=== PATIENT | male | born 1950 | race Caucasian/White ===

== ENCOUNTER 2024-06-11 14:17 | Outpatient (AMB) | payer MEDICARE, SELFPAY ==
--- NOTE | 2024-06-11 14:23 | A.OFFPC_ITS ---
Vital Signs 06/11/24 14:33 Weight 214 lb BP 130/66 Blood Pressure Location Rt brachial Position Sitting Respiration 14 Pulse 64 Pulse Source Pulse Oximeter Temp 98.4 F Temp Source Oral Pulse Oximetry (%) 97 Oxygen Delivery Method Room Air Intake Visit Reasons: kaitlin from [facility] Intake Note: New patient visit Web Site Project Manager Required: No Allergies No Known Allergies Allergy (Verified 06/11/24 14:29) Tobacco use date assessed: 06/11/24 Fall risk assessment: 2 + Falls in past year Last assessed Fall Risk: 06/11/24 Dental Screening Dental Screen Date: 06/11/24 Did you have a dental visit in the last 12 months?: No Did you have a dental problem in the last 6 months where you did not have access to dental care?: No Was dental information given to patient?: Patient has dentist HPI HPI Comments History of Present Illness Details This is a 74-year-old male with a past medical history of atrial fibrillation, aortic stenosis, left renal carcinoma status post nephrectomy in remission, chronic kidney disease, chronic back pain and osteoarthritis, hyperlipidemia, anemia and lower extremity edema presenting for follow up. He transferred from my panel at [facility] primary care. Records transfer pending. Bilateral cataracts-removed this year. Dr. Jarrett. The patient endorses right pelvic pain since December. It is fairly constant. It does not hurt to press on the area. Sometimes it is a 1/10. At most it is a 5/10. It is not getting worse. Once in awhile he will feel a similar pain on the left side. He endorses constipation for years since beyond opioids for pain management. No diarrhea or blood in stools. Denies urinary symptoms. No weight loss. Appetite has been normal. No vomiting. Patient has had 2 colonoscopies, and the last was more than 10 years ago. We have discussed this multiple times, and he did not want to proceed with colonoscopy. He does not see any swelling in the area of pain. Dr. Norton is his pta, and he is followed by the [facility] Coumadin clinic. He has INR checks every [address] Tam is his linux systems analyst. He has a history of left renal carcinoma. Status post nephrectomy. No known recurrence. He has an appointment with his linux systems analyst this week. The patient is followed by Dr. Hunter. He prescribes his pain regimen. ROS: Constitutional: No unexplained weight loss, fever, chills, fatigue or night sweats. Respiratory: No shortness of breath, cough or sputum production. Cardiovascular: No chest pain, chest pressure or chest discomfort. No palpitations. Gastrointestinal: No anorexia, nausea, vomiting or diarrhea. No blood in stool. Genitourinary: No dysuria, hematuria, urinary frequency. Neurologic: No headache, dizziness, syncope Skin: No rash or redness. Physical exam: Constitutional: Alert, in no distress. Neck: Supple, Full range of motion. No lymphadenopathy. Respiratory: Clear to auscultation. Cardiovascular: S1 S2 regular. Systolic murmur. Gastrointestinal: Abdomen soft, non-tender, non-distended. Normal bowel sounds. No palpable masses. No palpable hernia with Valsalva maneuvers. Genitourinary: No costovertebral angle tenderness. Extremities: Warm and well perfused. 1+ bilateral lower extremity edema. Psychiatric: Normal mood and affect [facility] Medical History (Updated 06/11/24 @ 16:46 by MADDISON Davenport) Pelvic pain in male Pure hypercholesterolemia Renal cell carcinoma of left kidney Stiffness of hand joint Sleep paralysis Mild aortic stenosis Lower extremity edema LVH (left ventricular hypertrophy) HTN (hypertension) High cholesterol Hearing decreased Chronic back pain CKD (chronic kidney disease) Afib Arthritis Anemia Surgical History (Updated 06/11/24 @ 16:41 by MADDISON Davenport) Status post laser cataract surgery of both eyes H/O discectomy History of repair of rotator cuff History of nephrectomy Family History (Updated 06/11/24 @ 14:49 by Honey Ferrera CMA) Brother Crohn disease Cancer of colon Multiple sclerosis Scarlet fever Father TIA (transient ischemic attack) Other Brain tumor Heart disease Social History Housing: House Patient Tobacco Use Status: Former Tobacco user Cigarette Packs Per Day: 2 Years Smoked: 40 e-Cigarette/Vaping Use: Never Used Second Hand Smoke Exposure: No service: No Current occupational status: retired Cognitive needs: No Hearing needs: Yes (Hard of hearing) Vision needs: No Questionnaire PHQ-9 Over the last 2 weeks, how often have you been bothered by any of the following problems? 1. Little interest or pleasure in doing things: not at all 2. Feeling down, depressed, or hopeless: not at all 3. Trouble falling or staying asleep, or sleeping too much: not at all 4. Feeling tired or having little energy: not at all 5. Poor appetite or overeating: not at all 6. Feeling bad about yourself - or that you are a failure or have let yourself or your family down: not at all 7. Trouble concentrating on things, such as reading the newspaper or watching television: not at all 8. Moving or speaking so slowly that other people could have noticed. Or the opposite - being so fidgety or restless that you have been moving around a lot more than usual: not at all 9. Thoughts that you would be better off or of hurting yourself in some way: not at all Total score: 0 Depression Screening Interpretation: Negative Depression Screening Done: Yes 76460 - PHQ-9 Billing: Yes Source: Developed by Drs. Matheus Asencio, Tanya Goodman, Duong Naranjo and colleagues, with an educational iesha from [employer]. Thrive Questionnaire Date Thrive assessed: 06/11/24 I am a: Patient What is your living situation today?: I have a steady place to live Within the past 12 months, did the food you bought not last and you didn't have the money to get more?: Never true Within the past 12 months, did you worry whether your food would run out before you got money to buy more?: Never true Do you have trouble paying for medicines?: No Do you have trouble getting transportation to medical appointments?: No Do you have trouble paying your heating and electricity bill?: No Do you have trouble taking care of your child, family member or friend?: No Do you have trouble with day-to-day activities such as bathing, preparing meals, shopping, managing finances, etc.?: No Are you currently unemployed and looking for a job?: No Are you interested in more education?: No Please select the resources that you would like help with: None Currently or been in a relationship where the following occur: No concerns reported THRIVE Score: 0 AUDIT C Alcohol Use Questionnaire (AUDIT-C) 1. How often do you have a drink containing alcohol?: Never (past) 3. How often do you have six or more drinks on one occasion?: Never Total Score: 0 CHRIS-7 AMB Questionnaire CHRIS-7 Date CHRIS - 7 assessed: 06/11/24 Feeling nervous, anxious, or on edge: 2 = More than half the days Not being able to stop or control worryin = More than half the days Worrying too much about different things: 2 = More than half the days Trouble relaxin = Not at all Being so restless that it is hard to sit still: 0 = Not at all Becoming easily annoyed or irritable: 0 = Not at all Feeling afraid as if something awful might happen: 0 = Not at all Total CHRIS-7 score (0-4 normal; 5-9 mild; 10-14 moderate; 15-21 severe): 6 Source: Developed by Drs. Matheus Asencio, Tanya Goodman, Duong Naranjo and colleagues, with an educational iesha from [employer]. CHRIS-7 Assessment Billing CHRIS-7 Assessment Tool: CHRIS-7 Assessment 09372 Physical exam (Primary Care) Vital Signs: Last Vital Signs Temp 98.4 F 06/11/24 14:33 Pulse 64 06/11/24 14:33 Resp 14 06/11/24 14:33 BP 130/66 06/11/24 14:33 Pulse Ox 97 06/11/24 14:33 Oxygen Delivery Method Room Air 06/11/24 14:33 Tobacco/Smoking Status: Tobacco use Status Tobacco use date assessed 06/11/24 06/11/24 14:38 Patient Tobacco Use Status Former Tobacco user 06/11/24 14:38 e-Cigarette/Vaping Use Never Used 06/11/24 14:38 Depression Screening Interpretation: Negative Currently or been in a relationship where the following occur: No concerns reported Assessment and Plan Assessment & Plan (1) Chronic back pain: Code(s): M54.9 - Dorsalgia, unspecified; G89.29 - Other chronic pain Qualifiers: Back pain location: low back pain Back pain laterality: bilateral Sciatica presence: without sciatica Qualified Code(s): M54.50 - Low back pain, unspecified; G89.29 - Other chronic pain Plan: Followed by physiatry. Continue current pain medication regimen. (2) HTN (hypertension): Code(s): I10 - Essential (primary) hypertension Qualifiers: Hypertension type: primary hypertension Qualified Code(s): I10 - Essential (primary) hypertension Plan: Controlled. Continue current medications. (3) Pure hypercholesterolemia: Code(s): E78.00 - Pure hypercholesterolemia, unspecified Plan: Continue statin. (4) CKD (chronic kidney disease): Code(s): N18.9 - Chronic kidney disease, unspecified Qualifiers: Chronic kidney disease stage: unspecified stage Qualified Code(s): N18.9 - Chronic kidney disease, unspecified Plan: He has an upcoming appointment with Nephrology. Check renal function. (5) Renal cell carcinoma of left kidney: Code(s): C64.2 - Malignant neoplasm of left kidney, except renal pelvis (6) Mild aortic stenosis: Code(s): I35.0 - Nonrheumatic aortic (valve) stenosis Plan: Followed by Cardiology. (7) Afib: Code(s): I48.91 - Unspecified atrial fibrillation Qualifiers: Atrial fibrillation type: longstanding persistent Qualified Code(s): I48.11 - Longstanding persistent atrial fibrillation Plan: Followed by cardiology. Anticoagulated on Coumadin. Rate controlled. (8) Pelvic pain in male: Code(s): R10.2 - Pelvic and perineal pain Plan: Check CBC, CMP, urinalysis and culture. Ordered urgent CT abdomen pelvis with IV contrast given history of cancer. Patient elects to have this done at [facility]. Order will be faxed. Patient advised to call the office if he does not hear about scheduling in the next 2 weeks. I have also asked him to call if he has the test done and does not hear about the results in a week. Orders: Orders Complete Blood Count Auto Diff Today R10.2 - Pelvic and perineal pain Urine Culture Today R10.2 - Pelvic and perineal pain, R39.9 - Unspecified symptoms and signs involving the genitourinary system Comprehensive Met. Panel Today R10.2 - Pelvic and perineal pain UA w Microscopic Today R10.2 - Pelvic and perineal pain, R39.9 - Unspecified symptoms and signs involving the genitourinary system CT abdomen pelvis w IV con Today C64.2 - Malignant neoplasm of left kidney, except renal pelvis, R10.2 - Pelvic and perineal pain Coding Level of Care Code Est Pt Level 4 (40153) Complex EM visit Add On G2211 Diagnoses Chronic bilateral low back pain without sciatica M54.50; G89.29 Back pain location: low back pain Back pain laterality: bilateral Sciatica presence: without sciatica Primary hypertension I10 Hypertension type: primary hypertension Pure hypercholesterolemia E78.00 Chronic kidney disease, unspecified CKD stage N18.9 Chronic kidney disease stage: unspecified stage Renal cell carcinoma of left kidney C64.2 Mild aortic stenosis I35.0 Longstanding persistent atrial fibrillation I48.11 Atrial fibrillation type: longstanding persistent Pelvic pain in male R10.2 Additional Codes CHRIS-7 Assessment Billing - CHRIS-7 Assessment Tool: CHRIS-7 Assessment [id number] ([id number])
[2024-06-11 14:33] VITALS: BP 130/66; PULSE 64; RESP 14; TEMP 36.9; O2SAT 97
== END 2024-06-11 15:03 | disposition home or self-care (01) ==
PROVIDERS: Visit Provider Physician Assistant Medical
DX: M54.50 Low back pain, unspecified (principal); G89.29 Other chronic pain; I12.9 Hypertensive chronic kidney disease with stage 1 through stage 4 chronic kidney disease, or unspecified chronic kidney disease; E78.00 Pure hypercholesterolemia, unspecified; N18.9 Chronic kidney disease, unspecified; C64.2 Malignant neoplasm of left kidney, except renal pelvis; I35.0 Nonrheumatic aortic (valve) stenosis; I48.11 Longstanding persistent atrial fibrillation; R10.2 Pelvic and perineal pain

== ENCOUNTER → 2024-06-11 14:17 | Outpatient (BNVA) | payer MEDICARE, SELFPAY | PROVIDERS: Visit Provider Physician Assistant Medical | DX: M54.50 Low back pain, unspecified (principal); G89.29 Other chronic pain; I12.9 Hypertensive chronic kidney disease with stage 1 through stage 4 chronic kidney disease, or unspecified chronic kidney disease; N18.9 Chronic kidney disease, unspecified; E78.00 Pure hypercholesterolemia, unspecified; C64.2 Malignant neoplasm of left kidney, except renal pelvis; I48.11 Longstanding persistent atrial fibrillation; R10.2 Pelvic and perineal pain; I35.0 Nonrheumatic aortic (valve) stenosis | CPT/HCPCS: 96127; 99212 ==

== ENCOUNTER 2024-06-12 10:15 | Outpatient (REF) | payer MEDICARE, SELFPAY ==
[2024-06-12 14:21] LABS: MANUAL DIFF FLAG NO
[2024-06-12 14:36] LABS: Basophils Percent Auto 0.7 % (0-2); Eosinophils Absolute Auto 0.1 X10*3/uL (0.0-0.4); Eosinophils Percent Auto 2.1 % (0-4); Hematocrit 39.7 % (42.0-52.0); Hemoglobin 13.2 g/dl (14.0-18.0); Imm Gran Abs Auto 0.02 X10*3/uL (0.00-0.03); Imm Gran Pct Auto 0.4 % (0.0-0.4); Lymphocytes Absolute Auto 1.1 X10*3/uL (1.2-4.9); Lymphocytes Percent Auto 20.3 % (20-40); Mean Corpuscular HGB Conc 33.2 g/dl (31.0-36.0); Mean Corpuscular Hemoglobin 30.1 pg (27.0-33.0); Mean Corpuscular Volume 90.6 fL (80.0-98.0); Mean Platelet Volume 12.6 fL (9.4-12.4); Monocytes Absolute Auto 0.5 X10*3/uL (0.1-1.2); Neutrophils Absolute Auto 3.9 x10*3/uL (2.0-8.3); Neutrophils Percent Auto 68.5 % (45-73); Platelet Count 158 X10*3/uL (160-400); Red Blood Count 4.38 X10*6/uL (4.60-5.80); Red Cell Distribution Width 13.4 % (11.0-16.0); White Blood Count 5.6 X10*3/uL (4.8-10.8)
[2024-06-12 14:39] LABS: Alanine Aminotransferase 11 U/L (0-40); Alkaline Phosphatase 59 U/L (39-117); Anion Gap 9 (12-20); Aspartate Amino Transferase 15 U/L (5-37); Bilirubin Total 0.7 mg/dL (0.0-1.0); Blood Urea Nitrogen 17 mg/dL (9-16); Calcium 10.3 mg/dL (8.4-10.2); Carbon Dioxide 30 mmol/L (22-29); Chloride 106 mmol/L (96-108); Estimated Glomerular Filt Rate 44; Glucose Random 101 mg/dL (60-115); Potassium 4.3 mmol/L (3.3-5.1); Sodium 141 mmol/L (135-145); Total Protein 7.2 g/dL (6.5-8.0)
[2024-06-12 15:07] LABS: Appearance Urine Clear; Color Urine Yellow; Glucose Urine UA Negative (Negative); Leukocyte Esterase Urine Negative (Negative); Nitrite Urine Negative (Negative); PH 6.5 (5.0-9.0); Specific Gravity - Urine 1.015 (1.005-1.025); Urine Blood Negative (Negative); Urine Ketones Negative (Negative); Urine Protein Negative (Neg-Trace)
[2024-06-12 15:16] LABS: Bacteria Urine None Seen (None Seen); Hyaline Casts Urine 0-2 /LPF (0-2); RBC Urine 0-2 /HPF (0-2); Squamous Epithelial Cell Urine 0-2 /HPF (0-2); WBC Urine 0-5 /HPF (0-5)
== END 2024-06-12 10:16 | disposition home or self-care (01) ==
LOC: HO.WFDLDS 10:15
PROVIDERS: Visit Provider Physician Assistant Medical
DX: R39.9 Unspecified symptoms and signs involving the genitourinary system (principal); R10.2 Pelvic and perineal pain
CPT/HCPCS: 36415; 80053; 81001; 85025; 87086

== ENCOUNTER 2024-12-20 11:32 | Outpatient (AMB) | payer MEDICARE, OTHER, SELFPAY ==
--- NOTE | 2024-12-20 11:35 | A.OFFPC_ITS ---
Vital Signs 12/20/24 11:41 Height 6 ft 2 in Weight 217 lb 8 oz BMI 27.9 BP 120/68 Blood Pressure Location Rt brachial Position Sitting Respiration 14 Pulse 65 Pulse Source Pulse Oximeter Pulse Oximetry (%) 97 Oxygen Delivery Method Room Air Intake Visit Reasons: follow up Intake Note: Duong presents in the offiice today for follow up. Professor Of Political Science Required: No Allergies No Known Allergies Allergy (Verified 12/20/24 11:36) Tobacco use date assessed: 12/20/24 Fall risk assessment: 2 + Falls in past year Last assessed Fall Risk: 12/20/24 Dental Screening Dental Screen Date: 12/20/24 Did you have a dental visit in the last 12 months?: No Did you have a dental problem in the last 6 months where you did not have access to dental care?: No Was dental information given to patient?: No HPI HPI Comments History of Present Illness Details This is a 74-year-old male with a past medical history of atrial fibrillation, aortic stenosis, left renal carcinoma status post nephrectomy in remission, chronic kidney disease, chronic back pain and osteoarthritis, hyperlipidemia, anemia and lower extremity edema presenting for follow up. Bilateral cataracts-[place] [address] Norton is his hairspring studder, and he is followed by the [facility] Coumadin clinic. He has INR checks every [address] Tam is his automotive starter repairer. He has a history of left renal carcinoma. Status post nephrectomy. No known recurrence. He saw him last week for follow up, and patient says everything was fine The patient is followed by Dr. Hunter. He prescribes his pain regimen. Patient reports he developed balanitis which is nearly resolved after he treated with [id number] azole antifungal cream. ROS: Constitutional: No unexplained weight loss, fever, chills, fatigue or night sweats. Respiratory: No shortness of breath, cough or sputum production. Cardiovascular: No chest pain, chest pressure or chest discomfort. No palpita tions. Stable lower extremity edema. Gastrointestinal: No anorexia, nausea, vomiting or diarrhea. No blood in stool. Genitourinary: No dysuria, hematuria, urinary frequency. Neurologic: No headache, dizziness, syncope Skin: No rash or redness. Physical exam: Constitutional: Alert, in no distress. Neck: Supple, Full range of motion. No lymphadenopathy. Respiratory: Clear to auscultation. Cardiovascular: S1 S2 regular. Systolic murmur. Genitourinary: No costovertebral angle tenderness. Extremities: Warm and well perfused. 1+ bilateral lower extremity edema. Psychiatric: Normal mood and affect [facility] Medical History (Updated 08/02/24 @ 17:22 by MADDISON Davenport) Intrahepatic bile duct dilation Infrarenal abdominal aortic aneurysm (AAA) without rupture Pelvic pain in male Pure hypercholesterolemia Renal cell carcinoma of left kidney Stiffness of hand joint Sleep paralysis Mild aortic stenosis Lower extremity edema LVH (left ventricular hypertrophy) HTN (hypertension) High cholesterol Hearing decreased Chronic back pain CKD (chronic kidney disease) Afib Arthritis Anemia Surgical History (Updated 06/11/24 @ 16:41 by MADDISON Davenport) Status post laser cataract surgery of both eyes H/O discectomy History of repair of rotator cuff History of nephrectomy Family History (Updated 06/11/24 @ 14:49 by Honey Ferrera CMA) Brother Crohn disease Cancer of colon Multiple sclerosis Scarlet fever Father TIA (transient ischemic attack) Other Brain tumor Heart disease Social History (Updated 12/20/24 @ 11:40 by Miriam Davidson MA) Housing: House Alcohol intake: never Patient Tobacco Use Status: Former Tobacco user Cigarette Packs Per Day: 2 Years Smoked: 40 e-Cigarette/Vaping Use: Never Used Second Hand Smoke Exposure: No service: No Current occupational status: retired Current occupational exposures/hazards: No Cognitive needs: No Hearing needs: Yes (Hard of hearing) Vision needs: No Questionnaire PHQ-9 Over the last 2 weeks, how often have you been bothered by any of the following problems? 1. Little interest or pleasure in doing things: not at all 2. Feeling down, depressed, or hopeless: not at all 3. Trouble falling or staying asleep, or sleeping too much: not at all 4. Feeling tired or having little energy: not at all 5. Poor appetite or overeating: not at all 6. Feeling bad about yourself - or that you are a failure or have let yourself or your family down: not at all 7. Trouble concentrating on things, such as reading the newspaper or watching television: not at all 8. Moving or speaking so slowly that other people could have noticed. Or the opposite - being so fidgety or restless that you have been moving around a lot more than usual: not at all 9. Thoughts that you would be better off or of hurting yourself in some way: not at all Total score: 0 Depression Screening Interpretation: Negative Depression Screening Done: Yes 00206 - PHQ-9 Billing: Patient declined-do not bill Source: Developed by Drs. Matheus Asencio, Tanya Goodman, Duong Naranjo and colleagues, with an educational iesha from [employer]. Thrive Questionnaire Date Thrive assessed: 12/20/24 I am a: Patient What is your living situation today?: I choose not to answer this question Within the past 12 months, did the food you bought not last and you didn't have the money to get more?: I choose not to answer this question Within the past 12 months, did you worry whether your food would run out before you got money to buy more?: I choose not to answer this question Do you have trouble paying for medicines?: I choose not to answer this question Do you have trouble getting transportation to medical appointments?: I choose not to answer this question Do you have trouble paying your heating and electricity bill?: I choose not to answer this question Do you have trouble taking care of your child, family member or friend?: I choose not to answer this question Do you have trouble with day-to-day activities such as bathing, preparing meals, shopping, managing finances, etc.?: I choose not to answer this question Are you currently unemployed and looking for a job?: I choose not to answer this question Are you interested in more education?: I choose not to answer this question Please select the resources that you would like help with: None Currently or been in a relationship where the following occur: I choose not to answer THRIVE Score: 0 AUDIT C Alcohol Use Questionnaire (AUDIT-C) 1. How often do you have a drink containing alcohol?: Never Total Score: 0 CHRIS-7 AMB Questionnaire CHRIS-7 Date CHRIS - 7 assessed: 12/20/24 Feeling nervous, anxious, or on edge: 0 = Not at all Not being able to stop or control worryin = Not at all Worrying too much about different things: 0 = Not at all Trouble relaxin = Not at all Being so restless that it is hard to sit still: 0 = Not at all Becoming easily annoyed or irritable: 0 = Not at all Feeling afraid as if something awful might happen: 0 = Not at all Total CHRIS-7 score (0-4 normal; 5-9 mild; 10-14 moderate; 15-21 severe): 0 Source: Developed by Drs. Matheus Asencio, Tanya Goodman, Duong Naranjo and colleagues, with an educational iesha from [employer]. CHRIS-7 Assessment Billing CHRIS-7 Assessment Tool: CHRIS-7 Assessment 75625 Physical exam (Primary Care) Vital Signs: Last Vital Signs Pulse 65 12/20/24 11:41 Resp 14 12/20/24 11:41 BP 120/68 12/20/24 11:41 Pulse Ox 97 12/20/24 11:41 Oxygen Delivery Method Room Air 12/20/24 11:41 BMI result Body Mass Index 27.9 Tobacco/Smoking Status: Tobacco use Status Tobacco use date assessed 12/20/24 12/20/24 11:44 Patient Tobacco Use Status Former Tobacco user 12/20/24 11:44 e-Cigarette/Vaping Use Never Used 12/20/24 11:44 PHQ-9: PHQ-9 Score PHQ-9: Total score 0 12/20/24 11:57 Depression Screening Interpretation: Negative Thrive Assessment: Date of Thrive Assessment Date Thrive assessed 12/20/24 12/20/24 11:44 Currently or been in a relationship where the following occur: I choose not to answer Coding Level of Care Code Est Pt Level 4 (11449) Complex EM visit Add On G2211 Diagnoses Primary hypertension I10 Hypertension type: primary hypertension Renal cell carcinoma of left kidney C64.2 Pure hypercholesterolemia E78.00 Chronic kidney disease, unspecified CKD stage N18.9 Chronic kidney disease stage: unspecified stage Longstanding persistent atrial fibrillation I48.11 Atrial fibrillation type: longstanding persistent Chronic bilateral low back pain without sciatica M54.50; G89.29 Back pain location: low back pain Back pain laterality: bilateral Sciatica presence: without sciatica Mild aortic stenosis I35.0 Lower extremity edema R60.0 Additional Codes CHRIS-7 Assessment Billing - CHRIS-7 Assessment Tool: CHRIS-7 Assessment [id number] ([id number]) Assessment & Plan Assessment & Plan (1) HTN (hypertension): Code(s): I10 - Essential (primary) hypertension Category: Medical Qualifiers: Hypertension type: primary hypertension Qualified Code(s): I10 - Essential (primary) hypertension (2) Renal cell carcinoma of left kidney: Code(s): C64.2 - Malignant neoplasm of left kidney, except renal pelvis Category: Medical (3) Pure hypercholesterolemia: Code(s): E78.00 - Pure hypercholesterolemia, unspecified Category: Medical (4) CKD (chronic kidney disease): Code(s): N18.9 - Chronic kidney disease, unspecified Category: Medical Qualifiers: Chronic kidney disease stage: unspecified stage Qualified Code(s): N18.9 - Chronic kidney disease, unspecified (5) Afib: Code(s): I48.91 - Unspecified atrial fibrillation Category: Medical Qualifiers: Atrial fibrillation type: longstanding persistent Qualified Code(s): I48.11 - Longstanding persistent atrial fibrillation (6) Chronic back pain: Code(s): M54.9 - Dorsalgia, unspecified; G89.29 - Other chronic pain Category: Medical Qualifiers: Back pain location: low back pain Back pain laterality: bilateral Sciatica presence: without sciatica Qualified Code(s): M54.50 - Low back pain, unspecified; G89.29 - Other chronic pain (7) Mild aortic stenosis: Code(s): I35.0 - Nonrheumatic aortic (valve) stenosis Category: Medical (8) Lower extremity edema: Code(s): R60.0 - Localized edema Category: Medical Plan The patient's chronic health problems are stable. He continues all of his medications. He is compliant with INR checks. He will have fasting labs done at [facility]. We will request notes from [facility] as he was referred back in the fall for some incidental findings on his CAT scan. He is up-to-date with immunizations. He will follow up with me in 6 months. Orders: Orders Vitamin B12 Today E78.00 - Pure hypercholesterolemia, unspecified, I10 - Essential (primary) hypertension, N18.9 - Chronic kidney disease, unspecified, Z91.89 - Other specified personal risk factors, not elsewhere classified Complete Blood Count Auto Diff Today E78.00 - Pure hypercholesterolemia, unspecified, I10 - Essential (primary) hypertension, N18.9 - Chronic kidney disease, unspecified IRON PROFILE Today E78.00 - Pure hypercholesterolemia, unspecified, I10 - Essential (primary) hypertension, N18.9 - Chronic kidney disease, unspecified Prostate Specific Antigen Today E78.00 - Pure hypercholesterolemia, unspecified, I10 - Essential (primary) hypertension, N18.9 - Chronic kidney disease, unspecified, Z12.5 - Encounter for screening for malignant neoplasm of prostate Basic Metabolic Panel Today E78.00 - Pure hypercholesterolemia, unspecified, I1 0 - Essential (primary) hypertension, N18.9 - Chronic kidney disease, unspecified Lipid Panel Today E78.00 - Pure hypercholesterolemia, unspecified, E78.5 - Hyperlipidemia, unspecified, I10 - Essential (primary) hypertension, N18.9 - Chronic kidney disease, unspecified
[2024-12-20 11:41] VITALS: BP 120/68; PULSE 65; RESP 14; O2SAT 97; BMI 27.9
--- OUTSIDE RECORDS SUMMARY | 2024-12-20 14:03 | XMS_ITS | Clinical Summary ---
Author Organization [facility] ity Address [address] [place] [address] Care Team Providers Care Rate Engineer Name Role Phone Viviana Adames Primary Care Provider [phone] Medications digoxin (LANOXIN) 125 mcg (0.125 mg) tabletIndications :Essential (primary) hypertension,Perm anent atrial fibrillation (CMS/HCC V24, CMS/HCC V28) TAKE 1/2 TABLET BY MOUTH DAILY 45 tablet 10/02/2024 Active Surgical History Surgery Date Site/Laterality Comments OTHER SURGICAL HISTORY PROCEDURE: LA UNLISTED PROCEDURE SPINE; COMMENT: L5-S1 DISC REPAIR ROTATOR CUFF REPAIR 1998 PROCEDURE: HISTORICAL ROTATOR CUFF REPAIR; COMMENT: RIGHT OTHER SURGICAL HISTORY 2002 PROCEDURE: LA CYSTO W/SIMPLE REMOVAL STONE & STENT; COMMENT: RrEMOVE KIDNEY STONE LEFT COLONOSCOPY 1991 neg PROCEDURE: HISTORICAL COLONOSCOPY; COMMENT: both normal except mild diverticulosis OTHER SURGICAL HISTORY 03/15 PROCEDURE: LA ESOPHAGOSCOPY FLEXIBLE TRANSORAL DIAGNOSTIC; COMMENT: gerd with peptic stricture Medical History Medical History Date Comments Calculus of kidney DX:Calculus o f kidney Depressive disorder, not els ewhere classified DX:Depressive disorder, not elsewhere classified Essential hypertension, benign 07/07/2006 D X:Essential hypertension, benign Pure hypercholesterolemia 07/07/2006 DX:Pur e hypercholesterolemia Lumbago 07/07/2006 DX:Lumbago; COMM ENT: SURERY FOR L5 S1 Congenital tracheoesophageal fistula, 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 Whole body scan mild arthritic changes in right AC joint . CAT scan of theneck slight submandibular adenopathy otherwise normal.. Diverticulosis of colon (wit hout mention of hemorrhage) 11/02/2006 DX:Diverticulosis of colon ( without mention of hemorrhage) Atrial fibrillation (CMS/HCC V24, CMS/HCC V28) DX:Atrial fibrillation (HCC) Lipoma of arm 08/13/2013 DX:Lipoma of arm Abnormal renal function 07/04/2015 DX:Abnor mal renal function Hydronephrosis, left 07/23/2015 DX:Hydronep hrosis, left Mass of ureter 08/04/2015 DX:Mass of urete r Anticoagulated on Coumadin 08/28/2015 DX:An ticoagulated on Coumadin Chronic kidney disease, stag e 3 (CMS/HCC V24, CMS/HCC V28) 03/26/2016 DX:Chronic kidney disease, stage 3 (HCC) Family History Medical History Relation Name Comments Hypertension Father Stroke Father TIA Heart attack Maternal Grandfather Other cancer Maternal Grandmother BRAIN Other: HEPATITIS Mother Heart attack Paternal Grandfather Lung cancer Paternal Grandmother Relation Name Status Comments Brother 1 Alive healthy Brother 2 Alive MS Daughter 1 Alive healthy Daughter 2 Alive healthy Father CHF, TIA, recta l tumor benign Maternal Grandfather [place] Maternal Grandmother [place] Mother Alive hepatitis, vincent racts Paternal Grandfather [place] Paternal Grandmother Brain t umor Sister Alive healthy Social History Tobacco Use Types Packs/Day Years Used Date Smoking Tobacco: Former Cigarettes Q uit: 09/12/2014 Smokeless Tobacco: Never Quit: 08/07/2015 Alcohol Use Standard Drinks/Week Comments Not Currently 0 (1 standard drink = 0.6 oz pur e alcohol) Sex and Gender Information Value Date Recorded Sex Assigned at Not on file Legal Sex Male 11:33 AM EST Gender Identity Not on file Sexual Orientation Not on file Obstetrics History Last Filed Vital Signs Vital Sign Reading Time Taken Comments Blood Pressure 132/70 01/27/2023 10:05 AM EDT Si tting L Arm Pulse 67 04/10/2024 11:37 AM EDT Temperature - - Respiratory Rate - - Oxygen Saturation - - Inhaled Oxygen Concentration - - Weight 96.6 kg (213 lb) 04/10/2024 11:37 AM EDT Height 188 cm (6' 2 ) 04/10/2024 11:37 AM EDT Body Mass Index 27.35 04/10/2024 11:37 AM EDT Plan of Treatment Upcoming Encounters Date Type Department Care Team (Late st Contact Info) Description 05/15/2025 9:10 AM EDT Office Visit [facility] [address] [place] [address] Erendira Amos NP [address] [place] [address] [address] [place] [address] Health Maintenance Due Date Last Done Comments Zoster Vaccines (2 of 2) 08/23/2020 06/28/2020 DTaP,Tdap,and Td Vaccines (3 - Td or Tdap) 09/27/2021 09/27/2011, 09/26/2003 Colorectal Cancer Screening: Stool Based Tests (FOBT/FIT) 08/21/2022 Depression Screening 08/21/2022 Falls Risk Assessment 08/21/2022 Hepatitis C Screening 08/21/2022 Lung Cancer Screening (Low Dose CT) 08/21/2022 Medicare Annual Wellness Visit 08/21/2022 Social Influencers of Health Screening 08/21/2022 Hypertension/CHF/CAD Annual BMP Blood Test 08/22/2022 Cholesterol Screening (Lipid Panel) 01/06/2023 01/06/2018 RSV Immunization Adult Patients (1 - 1-dose 75+ series) 2023 COVID-19 Vaccine ( - season) 2024 07/09/2021, 12/12/2020, 11/13/2020 Influenza Vaccine (Season Ended) 2025 06/15/2023, 2022, 06/16/2021, Additional history exists Pneumococcal Vaccine: 50+ Years Completed 03/08/2018, 01/13/2017 HIB Vaccines Aged Out No longer eligi ble based on patient's age to complete this topic HPV Vaccines Aged Out No longer eligi ble based on patient's age to complete this topic Hepatitis A Vaccines Aged Out No long er eligible based on patient's age to complete this topic Hepatitis B Vaccines Aged Out No long er eligible based on patient's age to complete this topic IPV Vaccines Aged Out No longer eligi ble based on patient's age to complete this topic MMR Vaccines Aged Out No longer eligi ble based on patient's age to complete this topic Meningococcal ACWY Vaccine Aged Out N o longer eligible based on patient's age to complete this topic Meningococcal B Vaccine Aged Out No l onger eligible based on patient's age to complete this topic RSV Immunization Patients Under 20 months Aged Out No longer eligible based on patient's age to complete this topic Varicella Vaccines Aged Out No longer eligible based on patient's age to complete this topic Procedures Procedure Name Priority Date/Time Associated Diagnosis Comments DIGOXIN LEVEL Routine 10/11/2024 8:37 AM EST Permanent atrial fibrillation (CMS/HCC V24, CMS/HCC V28) from Last 3 Months Results * Digoxin level (10/11/2024 8:37 AM EST) Digoxin 0.5 0.5 - 0.9 ng/mL [facility] Comment: Concentrations above 2.0 ng/mL are generally considered toxic. Some overlap of toxic and non-toxic values have been reported. ?Detection Limit = 0.4 ng/mL Therapeutic range is derived from 2013 ACCF/AHA Guidelines for the Management of Heart Failure. Blood Venous blood specimen / Unknown 10/11/2024 8:37 AM EST 10/11/2024 Narrative [facility] - 10/12/2024 8:09 AM EST Performed at: ??01 - [facility] [address] ??[id number] Software Configuration Analyst: Selene Bustamante MD, Phone: ??[phone] us Thad Norton MD LAB BLOOD ORDERABLES Final Res ult [facility] 1 from Last 3 Months Insurance [employer] Member Subscriber Plan / Payer ( fective 2021-Present) Name:Duong Ling Relation to Subscriber:Self Name:Duong Ling Payer ID:[id number] Group ID:Not on file Type:Not on file Address: [facility] [address] [id number] Care Teams Rate Engineer Relationship Specialty Start Date End Date Viviana Adames PA [address] [place] [address] PCP - General 04/10/24
== END 2024-12-20 12:09 | disposition home or self-care (01) ==
LOC: HO.HMCFM 11:33
PROVIDERS: PCP Physician Assistant Medical; Visit Provider Physician Assistant Medical
DX: I12.9 Hypertensive chronic kidney disease with stage 1 through stage 4 chronic kidney disease, or unspecified chronic kidney disease (principal); C64.2 Malignant neoplasm of left kidney, except renal pelvis; N18.9 Chronic kidney disease, unspecified; I48.11 Longstanding persistent atrial fibrillation; E78.00 Pure hypercholesterolemia, unspecified; M54.50 Low back pain, unspecified; G89.29 Other chronic pain; I35.0 Nonrheumatic aortic (valve) stenosis; R60.0 Localized edema

== ENCOUNTER → 2024-12-20 11:32 | Outpatient (BNVA) | payer MEDICARE, OTHER, SELFPAY | PROVIDERS: PCP Physician Assistant Medical; Visit Provider Physician Assistant Medical | DX: I12.9 Hypertensive chronic kidney disease with stage 1 through stage 4 chronic kidney disease, or unspecified chronic kidney disease (principal); N18.9 Chronic kidney disease, unspecified; C64.2 Malignant neoplasm of left kidney, except renal pelvis; E78.00 Pure hypercholesterolemia, unspecified; I48.11 Longstanding persistent atrial fibrillation; M54.50 Low back pain, unspecified; G89.29 Other chronic pain; I35.0 Nonrheumatic aortic (valve) stenosis; R60.0 Localized edema | CPT/HCPCS: 96127; 99212 ==

== ENCOUNTER 2025-05-27 13:37 | Outpatient (AMB) | payer MEDICARE, OTHER, SELFPAY ==
--- OUTSIDE RECORDS SUMMARY | 2025-05-23 08:30 | XMS_ITS | Encounter Summary ---
Author Organization [facility] Address [address] [place] [address] Care Team Providers Care Chemical Dependency Professional Name Role Phone Viviana Adames Primary Care Provider [phone] Reason for Visit * Cardiac Stress Testing (Routine) - Authorized Specialty Diagnoses / Procedures Referred By Contac t Referred To Contact Cardiology Diagnoses Atrial fibrillation, unspecified type (CMS/HCC V24, CMS/HCC V28) Shortness of breath Procedures Nuclear stress test with myocardial perfusion RI MYOCARDIAL PERFUSION IMAGING TOMOGRAPHIC MULTI STUDIES AT REST OR STRESS RI MYOCARDIAL PERFUSION IMAGING TOMOGRAPHIC SINGLE STUDY AT REST OR STRESS RI CARDIOVASCULAR STRESS TEST GLOBAL RI CV TMST/BIKE MAX/SUBMAX CONTINUOUS ECG MON/PHARM STRESS SUPVSR ONLY RI CV STRESS TEST/BIKE CONT ECG MON/PHARM STRESS INTERP & REPORT ONLY RI TEST STRESS CARDIOVASCULAR TRACING ONLY Erendira Amos NP [address] [place] [address] Dr [address] [place] [address] [place] [address] Phone: tel: fax: [facility] Referral ID Status Reason Start Date Expiration Date V isits Requested Visits Authorized [id number] Authorized 05/15/2025 05/15/2026 3 3 Encounter Details Date Type Department Care Team (Latest Contact Info) Description 05/23/2025 8:30 AM EDT Ancillary Procedure [facility] - [address] [place] [phone] Atrial fibrillation, unspecified type (CMS/HCC V24, CMS/HCC V28); Shortness of breath Social History Tobacco Use Types Packs/Day Years [...] on file Sexual Orientation Not on file documented as of this encounter Last Filed Vital Signs Vital Sign Reading Time Taken Comments Blood Pressure 121/70 05/23/2025 8:48 AM EDT Pulse - - Temperature - - Respiratory Rate - - Oxygen Saturation - - Inhaled Oxygen Concentration - - Weight 100 kg (221 lb) 05/23/2025 8:48 AM EDT Height 188 cm (6' 2 ) 05/23/2025 8:48 AM EDT Body Mass Index 28.37 05/23/2025 8:48 AM EDT documented in this encounter Plan of Treatment Upcoming Encounters Date Type Department Care Team (Late st Contact Info) Description 07/19/2025 8:30 AM EST Ancillary Procedure [facility] - [address] [facility] [address] [place] [address] 08/14/2025 9:00 AM EST Ancillary Procedure [facility] - [address] [facility] [address] [place] [address] 08/15/2025 8:10 AM EST Office Visit [facility] - [facility] [address] [place] [id number] Erendira Amos NP [address] [place] [address] [address] [place] [address] documented as of this encounter Procedures Procedure Name Priority Date/Time Associated Diagnosis Comments NM LEXISCAN STRESS TEST W/ MYOCARDIAL PERFUSION Routine 05/23/2025 11:15 AM EDT Atrial fibrillation, unspecified type (CMS/HCC V24, CMS/HCC V28) Shortness of breath documented in this encounter Results * NM LEXISCAN STRESS TEST W/ MYOCARDIAL PERFUSION (05/23/2025 11:15 AM EDT) Exercise/injec tion duration (min) 0 CV PACS STRESS Exercise/injec tion duration (sec) 38 CV PACS STRESS Peak SBP 125 mmHg CV PACS STRESS Peak DBP 62 mmHg CV PACS STRESS Peak HR 77 bpm CV PACS STRESS Baseline HR 66 bpm CV PACS STRESS Baseline SBP 121 mmHg CV PACS STRESS Baseline DBP 70 mmHg CV PACS STRESS Estimated workload 1.0 METS CV PACS STRESS Percent HR 53 % CV PACS STRESS Rate Pressure Product 9,625.0 mmHg*bpm CV PACS STRESS Target HR 122 bpm CV PACS STRESS TID 1.06 CV PACS STRESS Nuc Stress EF 75 % CV PACS STRESS Nuc Rest EF 67 % CV PACS STRESS BSA 2.29 m2 CV PACS STRESS Anatomical Region Laterality Modality Nuclear Medicine 05/23/2025 9:29 AM EDT 05/23/2025 10:13 AM EDT Narrative 05/24/2025 3:49 PM EDT Raw Images and CineLoop Images: Impression: 1. Most likely normal stress test with nuclear imaging. 2. The patient had no chest pain during the test. 3. EKG at baseline was atrial fibrillation, no ischemic EKG changes at stress. 4. LV Cavity size appears dilated. 5. No transient ischemic dialatation (TID 1.06) 6, CT scan showed mild calcification of the LAD noted. LCx and RCA does not seem like significantly calcified. 7. Raw perfusion imgaes revelaed hypoperfusion of the basal to mid segments in the resting images which improves predominantly most of the areas except in the inferior wall indicating artifactual in nature. When attenuation correction is applied, this hypoperfusion normalizes predominantly. Hence no ischemia or infarction. 8. Gated SPECT imaging was performed which demonstrated normal LV wall motion and thickening with a calculated LVEF of 67% at rest and 75% at stress. Stress Findings A pharmacological stress test was performed using regadenoson, 0.4 mg IV over 10-15 seconds, followed by radiopharmacological injection 10 seconds post infusion. Total stress time was 0 min and 38 sec. The patient reached the end of the protocol. Blood pressure demonstrated a normal response. Heart rate demonstrated a normal response. The patient reported no symptoms during the stress test. ECG Patient is a 74 year old male with reports of dyspnea; PMH includes a fib, HTN, former smoking. The ECG shows atrial fibrillation. TWI inversion noted at baseline. There were no arrhythmias during stress. There is no significant ST abnormalities during stress in the setting of baseline abnormal ECG. There were no arrhythmias during recovery. Nuclear Study Quality Study technique: MPI, SPECT, multi, rest and stress, 1 day and gated. Overall image quality is good. CT attenuation correction was utilized. No radiopharmaceutical dose was extravasated. The time from injection to rest imaging is 40 mins. The time from injection to stress imaging is 55 mins. Stress Function Comments Stress ejection fraction is 75%. Rest Function Comments Resting ejection fraction was 67%. us Erendira Amos NP CV STRESS PROCEDURES Final R esult documented in this encounter Visit Diagnoses Diagnosis Atrial fibrillation, unspecified type (CMS/HCC V24, CMS/HCC V28) Shortness of breath documented in this encounter Administered Medications Inactive Administered Medications - up to 3 most recent administrations Medication Order MAR Action Action Date Dose Rate Site regadenoson (LEXISCAN) injection 0.4 mg 0.4 mg, intravenous, Once in imaging, Starting on Tue05/23/25 at 1000, For 1 dose Given 05/23/2025 9:49 AM EDT 0.4 mg TC-99M tetrofosmin P radio-isotope injection 30.1 millicurie 30.1 millicurie, intravenous, Once in imaging, Starting on Tue05/23/25 at 1000, For 1 dose Given 05/23/2025 9:50 AM EDT 30.1 millicuries TC-99M tetrofosmin P radio-isotope injection 9 millicurie 9 millicurie, intravenous, Once in imaging, Starting on Tue05/23/25 at 0843, For 1 dose Given 05/23/2025 8:43 AM EDT 9 millicuries documented in this encounter Care Teams Chemical Dependency Professional Relationship Specialty Start Date End Date Viviana Adames PA [address] [place] [id number] PCP - General 04/10/24 documented as of this encounter
--- NOTE | 2025-05-27 14:05 | MHC.OFFVIS ---
Intake Visit Reasons: bilateral leg cellulitis Allergies No Known Allergies Allergy (Verified 12/20/24 11:36) HPI Comments Details: 74-year-old male with a past medical history of atrial fibrillation, aortic stenosis, left renal cell carcinoma status post nephrectomy in remission, CKD, hyperlipidemia, osteoarthritis, anemia and lower extremity edema presents for re-evaluation of lower extremity cellulitis. Patient was seen at his cardiology office recently, and they noted increased redness and warmth of bilateral lower extremities. He was placed on a 10 day course of doxycycline. He completed this 2 days ago. He notes improved appearance in the redness. He says his legs are always a little bit red, and they look the same as they usually do. He notices no pustular discharge, swelling, pain, fevers or chills. Patient also notices tenderness of the right retroareolar area for the past couple of months when pressure is applied like when he is lying on his right side in bed. No palpable lumps. No known family history of breast cancer. No fevers, chills, unexplained weight loss or night sweats. left 8 x8 4 x 2 r 2.5 x. 2.5 1. 1.5 retroareolar breast pain with palpation [facility] Medical History (Updated 05/27/25 @ 14:08 by MADDISON Davenport) Lower extremity ulceration Intrahepatic bile duct dilation Infrarenal abdominal aortic aneurysm (AAA) without rupture Pelvic pain in male Pure hypercholesterolemia Renal cell carcinoma of left kidney Stiffness of hand joint Sleep paralysis Mild aortic stenosis Lower extremity edema LVH (left ventricular hypertrophy) HTN (hypertension) High cholesterol Hearing decreased Chronic back pain CKD (chronic kidney disease) Afib Arthritis Anemia Surgical History (Updated 06/11/24 @ 16:41 by MADDISON Davenport) Status post laser cataract surgery of both eyes H/O discectomy History of repair of rotator cuff History of nephrectomy Family History (Updated 06/11/24 @ 14:49 by Honey Ferrera CMA) Brother Crohn disease Cancer of colon Multiple sclerosis Scarlet fever Father TIA (transient ischemic attack) Other Brain tumor Heart disease Social History (Updated 12/20/24 @ 11:40 by Miriam Davidson MA) Housing: House Alcohol intake: never Patient Tobacco Use Status: Former Tobacco user Cigarette Packs Per Day: 2 Years Smoked: 40 e-Cigarette/Vaping Use: Never Used Second Hand Smoke Exposure: No service: No Current occupational status: retired Current occupational exposures/hazards: No Cognitive needs: No Hearing needs: Yes (Hard of hearing) Vision needs: No Assessment & Plan Assessment & Plan (1) Lower extremity ulceration: Code(s): L97.909 - Non-pressure chronic ulcer of unspecified part of unspecified lower leg with unspecified severity Category: Medical Orders: Referrals Wound Care Referral L97.909 - Non-pressure chronic ulcer of unspecified part of unspecified lower leg with unspecified severity Medications: New mupirocin calcium 2% 1 appl topical TID 15 grams 1RF Coding Diagnoses Lower extremity ulceration L97.909
[2025-05-27 15:18] VITALS: BP 122/62; PULSE 75; RESP 14; TEMP 36.8; O2SAT 98; BMI 28.2
--- NOTE | 2025-05-27 15:20 | A.OFFPC_ITS ---
Vital Signs 05/27/25 15:18 Height 6 ft 2 in Weight 220 lb BMI 28.2 BP 122/62 Blood Pressure Location Rt brachial Position Sitting Respiration 14 Pulse 75 Pulse Source Pulse Oximeter Temp 98.2 F Temp Source Temporal Artery Scan Pulse Oximetry (%) 98 Oxygen Delivery Method Room Air Intake Visit Reasons: bilateral leg cellulitis Intake Note: Duong presents in the office today for bilateral leg cellulites. Allergies No Known Allergies Allergy (Verified 05/27/25 15:21) Medication List - Last Reconciled 05/27/25 by MADDISON Davenport amlodipine 5 mg PO DAILY digoxin PO furosemide 20 mg PO BID magnesium oxide 400 mg PO DAILY metoprolol tartrate 200 mg PO BID morphine ER 30 mg PO TID multivitamin 1 tab PO DAILY mupirocin calcium 2% 1 appl topical TID oxycodone 15 mg PO TID PRN pravastatin 80 mg PO DAILY warfarin 5 mg (2 x 2.5 mg) PO ONCE 90 days Tobacco use date assessed: 05/27/25 Dental Screening Dental Screen Date: 05/27/25 Did you have a dental visit in the last 12 months?: Yes Did you have a dental problem in the last 6 months where you did not have access to dental care?: No Was dental information given to patient?: Patient has dentist HPI HPI Comments History of Present Illness Details This is a 74-year-old male with a past medical history of atrial fibrillation, chronic lower extremity edema, left renal cell carcinoma status post nephrectomy in remission and aortic stenosis presenting for evaluation of cellulitis. He was seen at his annealer helper's office recently. They noted warmth and increased redness of the bilateral lower extremities. He was placed on a 10 day course of doxycycline which he completed 2 days ago. He denies side effects on the medication. Patient says his legs look back to their baseline now. He has chronic discoloration on the lower legs associated with lower extremity edema. He denies fevers, chills, pain, increased swelling, purulent drainage. Patient says he is unable to put on compression stockings. Patient also endorses right retroareolar breast pain for the past couple of months when pressure is applied to the area. He knows it when he lays on his right side in his arm presses into the area. Denies family history of breast cancer. He does not feel any lumps. No fevers, chills, fatigue, night sweats or unexplained weight loss. ROS: Constitutional: No unexplained weight loss, fever, chills, fatigue or night sweats. Cardiovascular: No chest pain Physical exam: Respiratory: Clear to auscultation. Cardiovascular: S1 S2 regular. No murmurs. Breast: No axillary adenopathy, nipple discharge, rashes or discoloration bilaterally. No palpable masses bilaterally. The right retroareolar area is tender to palpation. Extremities: Warm and well perfused. No clubbing or cyanosis. Bilateral venous stasis dermatitis. There are Stage 1 sores (2 on the left and 2 on the right, largest 8 x 8 cm on the left day). No active drainage or purulent discharge. No calor. [facility] Medical History (Updated 05/27/25 @ 16:50 by MADDISON Davenport) Breast pain, right Venous stasis dermatitis of both lower extremities Lower extremity ulceration Intrahepatic bile duct dilation Infrarenal abdominal aortic aneurysm (AAA) without rupture Pelvic pain in male Pure hypercholesterolemia Renal cell carcinoma of left kidney Stiffness of hand joint Sleep paralysis Mild aortic stenosis Lower extremity edema LVH (left ventricular hypertrophy) HTN (hypertension) High cholesterol Hearing decreased Chronic back pain CKD (chronic kidney disease) Afib Arthritis Anemia Surgical History (Updated 06/11/24 @ 16:41 by MADDISON Davenport) Status post laser cataract surgery of both eyes H/O discectomy History of repair of rotator cuff History of nephrectomy Family History Brother Crohn disease Cancer of colon Multiple sclerosis Scarlet fever Father TIA (transient ischemic attack) Other Brain tumor Heart disease Social History (Updated 05/27/25 @ 15:21 by Miriam Davidson) Housing: House Alcohol intake: never Patient Tobacco Use Status: Former Tobacco user Cigarette Packs Per Day: 2 Years Smoked: 40 e-Cigarette/Vaping Use: Never Used Second Hand Smoke Exposure: No service: No Current occupational status: retired Current occupational exposures/hazards: No Cognitive needs: No Hearing needs: Yes (Hard of hearing) Vision needs: No Questionnaire Thrive Questionnaire Date Thrive assessed: 12/20/24 I am a: Patient What is your living situation today?: I choose not to answer this question Within the past 12 months, did the food you bought not last and you didn't have the money to get more?: I choose not to answer this question Within the past 12 months, did you worry whether your food would run out before you got money to buy more?: I choose not to answer this question Do you have trouble paying for medicines?: I choose not to answer this question Do you have trouble getting transportation to medical appointments?: I choose not to answer this question Do you have trouble paying your heating and electricity bill?: I choose not to answer this question Do you have trouble taking care of your child, family member or friend?: I choose not to answer this question Do you have trouble with day-to-day activities such as bathing, preparing meals, shopping, managing finances, etc.?: I choose not to answer this question Are you currently unemployed and looking for a job?: I choose not to answer this question Are you interested in more education?: I choose not to answer this question Please select the resources that you would like help with: None Currently or been in a relationship where the following occur: I choose not to answer THRIVE Score: 0 AUDIT C Alcohol Use Questionnaire (AUDIT-C) 3. How often do you have six or more drinks on one occasion?: Never Total Score: 0 CHRIS-7 AMB Questionnaire CHRIS-7 Date CHRIS - 7 assessed: 12/20/24 Source: Developed by Drs. Matheus Asencio, Tanya Goodman, Duong Naranjo and colleagues, with an educational iesha from [employer]. Physical exam (Primary Care) Vital Signs: Last Vital Signs Temp 98.2 F 05/27/25 15:18 Pulse 75 05/27/25 15:18 Resp 14 05/27/25 15:18 BP 122/62 05/27/25 15:18 Pulse Ox 98 05/27/25 15:18 Oxygen Delivery Method Room Air 05/27/25 15:18 BMI result Body Mass Index 28.2 Tobacco/Smoking Status: Tobacco use Status Tobacco use date assessed 05/27/25 05/27/25 15:22 Patient Tobacco Use Status Former Tobacco user 05/27/25 15:22 e-Cigarette/Vaping Use Never Used 05/27/25 15:22 Thrive Assessment: Date of Thrive Assessment Date Thrive assessed 04/10/25 09/15/25 15:22 Currently or been in a relationship where the following occur: I choose not to answer Coding Level of Care Code Est Pt Level 4 (69144) Complex EM visit Add On G2211 Diagnoses Ulcer of lower extremity, limited to breakdown of skin, unspecified laterality L97.901 Laterality: unspecified laterality Non-pressure ulcer stage: limited to breakdown of skin Lower extremity edema R60.0 Venous stasis dermatitis of both lower extremities I87.2 Breast pain, right N64.4 Assessment & Plan Assessment & Plan (1) Lower extremity ulceration: Code(s): L97.909 - Non-pressure chronic ulcer of unspecified part of unspecified lower leg with unspecified severity Category: Medical Qualifiers: Laterality: unspecified laterality Non-pressure ulcer stage: limited to breakdown of skin Qualified Code(s): L97.901 - Non-pressure chronic ulcer of unspecified part of unspecified lower leg limited to breakdown of skin (2) Lower extremity edema: Code(s): R60.0 - Localized edema Category: Medical (3) Venous stasis dermatitis of both lower extremities: Code(s): I87.2 - Venous insufficiency (chronic) (peripheral) Category: Medical (4) Breast pain, right: Code(s): N64.4 - Mastodynia Category: Medical Plan Patient will apply topical mupirocin to the stage I areas on the lower extremities. If signs of cellulitis develop again like increased redness, discharge, swelling or warmth he will call the office to restart oral antibiotics. Recommended keeping the extremities elevated. I will refer to Wound Care for further management. We discussed that this can be a chronic waxing and waning issue due to lower extremity edema. Ordered ultrasound and mammogram for evaluation of breast pain on the right side. He has a follow up with me in a week. Orders: Orders US breast RT limited Today N64.4 - Mastodynia MM diagnostic mammo unilat RT Today N64.4 - Mastodynia Referrals Wound Care Referral L97.909 - Non-pressure chronic ulcer of unspecified part of unspecified lower leg with unspecified severity Medications: New mupirocin calcium 2% 1 appl topical TID 15 grams 1RF
--- OUTSIDE RECORDS SUMMARY | 2025-05-27 18:52 | XMS_ITS | Encounter Summary ---
Author Organization [facility] Address [address] [place] [address] Care Team Providers Care Adjuster Piano Action Name Role Phone Rebecca Bosch MD Primary Care Provider Nely Strong MD Primary Care Provide Thad Osorio MD Unavailable [phone] Ivania Bearden DO Primary Care Provider Thad Horvath MD Unavailable [phone] Anurag Tam MD Unavailable Ruel Hunter DO Unavailable [facility]available [facility] Primary Care Provider Viviana Gray PA-C Primary Care Provider Luke junior [facility], [facility]cp Primary Care Provider Viviana Gray PA-C Unavailable Unavailable Viviana Adames PA-C Primary Care Provider Luke junior Encounter Details Date Type Department Care Team Description 05/30/2017 [facility] Medical Records [address] [place] [id number] Abstract, Provider Social History Tobacco Use Types Packs/Day Years Used Date Smoking Tobacco: Former Cigarettes 2 35 Smokeless Tobacco: Former Quit: 08/07/2015 Alcohol Use Standard Drinks/Week Comments Yes 0 (1 standard drink = 0.6 oz pur e alcohol) 2/yr Alcohol Habits Answer Date Recorded How often do you have a drink containing alcohol ? Never 12/08/2021 How many drinks containing a lcohol do you have on a typical day when you are drinking? Not asked How often do you have six or more drinks on one occasion? Never 12/08/2021 Social Isolation Answer Date Recorded In a typical week, how many times do you talk on the phone with family, friends, or neighbors? More than three times a week 12/08/2021 How often do you get togethe r with friends or relatives? More than three times a week 12/08/2021 How often do you attend chur or gnosticist services? Never 12/08/2021 Do you belong to any clubs o r organizations such as yazidi groups, unions, fraternal or athletic groups, or school groups? No 12/08/2021 How often do you attend meet ings of the clubs or organizations you belong to? Never 12/08/2021 Are you now , , , , never or living with a partner? 12/08/2021 Physical Activity Answer Date Recorded On average, how many days pe r week do you engage in moderate to strenuous exercise (like walking fast, running, jogging, dancing, swimming, biking, or other activities that cause a light or heavy sweat)? 7 days 12/08/2021 On average, how many minutes do you engage in exercise at this level? 20 min 12/08/2021 Stress Answer Date Recorded Do you feel stress - tense, restless, nervous, or anxious, or unable to sleep at night because your mind is troubled all the time - these days? Not at all 12/08/2021 Financial Resource Strain Answer Date R ecorded How hard is it for you to pa y for the very basics like food, housing, medical care, and heating? Not hard at all 12/08/2021 Intimate Partner Violence Answer Date R ecorded Within the last year, have y ou been afraid of your partner or ex-partner? No 12/08/2021 Within the last year, have y ou been humiliated or emotionally abused in other ways by your partner or ex-partner? No Within the last year, have y ou been kicked, hit, slapped, or otherwise physically hurt by your partner or ex-partner? No 12/08/2021 Within the last year, have y ou been raped or forced to have any kind of sexual activity by your partner or ex-partner? No 12/08/2021 Food Insecurity Answer Date Recorded Within the past 12 months, y ou worried that your food would run out before you got money to buy more. Never true 12/08/2021 Within the past 12 months, t he food you bought just didn't last and you didn't have money to get more. Never true 12/08/2021 Transportation Needs Answer Date Record ed In the past 12 months, has l ack of transportation kept you from medical appointments or from getting medications? No 11/11 In the past 12 months, has l ack of transportation kept you from meetings, work, or getting things needed for daily living? No 12/08/2021 Housing Stability Answer Date Recorded In the last 12 months, was t here a time when you were not able to pay the mortgage or rent on time? No 12/08/2021 In the last 12 months, how many places have you lived? 2 12/08/2021 In the last 12 months, was t here a time when you did not have a steady place to sleep or slept in a halfway (including now)? No 12/08/2021 Sex Assigned at Date Recorded Not on file documented as of this encounter Plan of Treatment Not on file documented as of this encounter Visit Diagnoses Not on filedocumented in this encounter Care Teams Adjuster Piano Action Relationship Specialty Start Date End Date Rebecca Bosch MD PCP - General Internal Medicine 07/22/15 12/11/20 Nely Betancourt MD PCP - General Internal Medicine 12/12/20 11/18/21 Ivania Bearden, [address] [place] [address] PCP - General Internal Medicine 11/19/21 02/23/22 [facility] Pcp [address] [place] [address] PCP - General Internal Medicine 02/24/22 03/02/22 Viviana Adames PA-C [address] [place] [address] [place] [address] PCP - General Medical Physician Program Developer 03/03/22 04/26/22 [facility] Pcp [address] [place] [address] PCP - General Internal Medicine 04/27/22 04/09/24 Viviana Adames PA-C [address] [place] [id number] PCP - General Medical Physician Program Developer 04/10/24 Thad Norton MD [address] [place] [address] Specialist Cardiovascular Disease 01/23/21 2 Thad Norton MD [address] [facility] [address] [place] [address] Self Propelled Mining Machine Operator Cardiovascular Disease 12/08/21 Anurag Tam MD [address] [place] [address] Specialist Nephrology 12/08/21 Ruel Hunter DO [address] [facility] [address] [place] [address] Specialist Physiatry 12/08/21 Viviana Adames PA-C [address] [place] [address] [address] [place] [address] Specialist Medical Physician Program Developer 01/27/23 04/09/24 documented as of this encounter
--- OUTSIDE RECORDS SUMMARY | 2025-05-27 18:52 | XMS_ITS | Encounter Summary ---
Author Organization [facility] Address [address] [place] [address] Care Team Providers Care Loan Reviewer Name Role Phone Rebecca Bosch MD Primary Care Provider Nely Strong MD Primary Care Provide Thad Osorio MD Unavailable [phone] Ivania Bearden DO Primary Care Provider Thad Horvath MD Unavailable [phone] Anurag Tam MD Unavailable Ruel Hunter DO Unavailable Unavailable [facility], Pcp Primary Care Provider Viviana [place] PA-C Primary Care Provider Luke junior [facility], Pcp Primary Care Provider Viviana [place] PA-C Unavailable Unavailable Viviana Adames PA-C Primary Care Provider Luke junior Encounter Details Date Type Department Care Team Description 05/16/2016 Pt. Non Urgent Medical Question Medicine/Pediatrics - [address] [id number] Rebecca Bosch MD Social History Tobacco Use Types Packs/Day Years [...] week 12/08/2021 How often do you attend [facility] or congregation services? Never 12/08/2021 Do you belong to any clubs o r organizations such as shinto groups, unions, fraternal or athletic groups, or [...] place to sleep or slept in a senior living (including now)? No 12/08/2021 Sex Assigned at Date Recorded Not on file documented as of this encounter Progress Notes * Radha Richter L.P.N. - 05/18/2016 9:48 AM EDTFrom: Duong Ling To: Rebecca Clarke MD Sent: 05/16/2016 10:24 AM EDT Subject: Vaccinations May Duong receive his flu shot (and any other vaccinations that may be appropriate such as pneumoccal etc.) when he comes for his next round of bloodwork on May 21 ? Thank you, Maria Guadalupe Ling documented in this encounter Plan of Treatment Not on file documented as of this encounter Visit Diagnoses Not on filedocumented in this encounter Care Teams Loan Reviewer Relationship Specialty Start Date End Date Rebecca Bosch MD PCP - General Internal Medicine 07/22/15 12/11/20 Nely Betancourt MD PCP - General Internal Medicine 12/12/20 11/18/21 Ivania Bearden DO [address] [place] [address] PCP - General Internal Medicine 11/19/21 02/23/22 [facility] [address] [place] [address] PCP - General Internal Medicine 02/24/22 03/02/22 Viviana Adames PA-C [address] [facility] [facility] [address] [place] [address] PCP - General Medical Physician [employer] 03/03/22 04/26/22 [facility] [address] [place] [address] PCP - General Internal Medicine 04/27/22 04/09/24 Viviana Adames PA-C [address] [facility] [place] [address] PCP - General Medical Physician [employer] 04/10/24 Thad Norton MD [address] [place] [address] [address] [place] [address] Specialist Cardiovascular Disease 01/23/21 2 Thad Norton MD [address] [place] [address] [place] [address] Mortgage Specialist Cardiovascular Disease 12/08/21 Anurag Tam MD [address] [place] [address] [address] [place] [address] Specialist Nephrology 12/08/21 Ruel Hunter DO [address] [facility] [address] [place] [address] Specialist Physiatry 12/08/21 Viviana Adames PA-C [address] [place] [address] [address] [place] [address] Specialist Medical Physician [employer] 01/27/23 04/09/24 documented as of this encounter
--- OUTSIDE RECORDS SUMMARY | 2025-05-27 18:52 | XMS_ITS | Encounter Summary ---
Author Organization [facility] Address [address] [place] [address] Care Team Providers Care Tool Liaison Name Role Phone Rebecca Bosch MD Primary Care Provider Nely Strong MD Primary Care Provide Unavailable Thad Norton MD Unavailable [phone] Ivania Bearden DO Primary Care Provider Thad Horvath MD Unavailable [phone] Anurag Tam MD Unavailable Ruel Hunter DO Unavailable Unavailable [facility], Pcp Primary Care Provider Viviana [place] PA-C Primary Care Provider Luke junior [facility], Pcp Primary Care Provider Viviana [place] PA-C Unavailable Unavailable Viviana Adames PA-C Primary Care Provider Luke junior Encounter Details Date Type Department Care Team Description 07/20/2017 [employer] Report Medical Records [address] [place] [id number] Anurag Tam MD [address] [place] [id number] Social History Tobacco Use Types Packs/Day Years [...] week 12/08/2021 How often do you attend [facility] or caodaism services? Never 12/08/2021 Do you belong to any clubs o r organizations such as temple groups, unions, fraternal or athletic groups, or [...] on filedocumented in this encounter Care Teams Tool Liaison Relationship Specialty Start Date End Date Rebecca Bosch MD PCP - General Internal Medicine 07/22/15 12/11/20 Nely Betancourt MD PCP - General Internal Medicine 12/12/20 11/18/21 Ivania Bearden DO [address] [place] [address] PCP - General Internal Medicine 11/19/21 02/23/22 [facility], Pcp [address] [place] [address] [place] [address] PCP - General Internal Medicine 02/24/22 03/02/22 Viviana Adames PA-C [address] [place] [address] [address] [place] [address] PCP - General Medical Physician Crown [employer] Machine Set Up Mechanic 03/03/22 04/26/22 [facility], Pcp [address] [place] [address] [place] [address] PCP - General Internal Medicine 04/27/22 04/09/24 Viviana Adames PA-C [address] [place] [address] [address] [place] [address] PCP - General Medical Physician Crown [employer] Machine Set Up Mechanic 04/10/24 Thad Norton MD [address] [place] [address] [address] [place] [address] Specialist Cardiovascular Disease 01/23/21 2 Thad Norton MD [address] [place] [address] [address] [place] [address] Hydrometallurgical Engineer Cardiovascular Disease 12/08/21 Anurag Tam MD [address] [place] [address] [address] [place] [address] Specialist Nephrology 12/08/21 Ruel Hunter DO [address] [facility] [address] [place] [address] Specialist Physiatry 12/08/21 Viviana Adames PA-C [address] [place] [address] [address] [place] [address] Specialist Medical Physician [employer] Machine Set Up Mechanic 01/27/23 04/09/24 documented as of this encounter
--- OUTSIDE RECORDS SUMMARY | 2025-05-27 18:52 | XMS_ITS | Encounter Summary ---
Author Organization [facility] Address [address] [place] [address] Care Team Providers Care Credit And Collection Manager Name Role Phone Saúl Peguero MD Primary Care Provider Unavail able Rebecca Bosch MD Primary Care Provider Unavaila Nely Ch MD Primary Care Provide r Unavailable Thad Norton MD Unavailable [phone] Ivania Bearden DO Primary Care Provider Unavaila Thad Mckeon MD Unavailable [phone] Anurag Tam MD Unavailable Ruel Hunter DO Unavailable Unavailable [facility], Pcp Primary Care Provider Viviana Gray PA-C Primary Care Provider Luke junior [facility], Pcp Primary Care Provider Viviana Gray PA-C Unavailable Unavailable Vviiana Adames PA-C Primary Care Provider Luke junior Reason for Visit * Reason Onset Date Comments Appointment-Internal Referral 08/30/2013 Encounter Details Date Type Department Care Team Description 08/30/2013 Telephone Adult Medicine - [address] [id number] Viviana Adames PA-C Appointment-Internal Referral Social History Tobacco Use Types Packs/Day Years Used Date Smoking Tobacco: Every Day Cigarettes 2 35 Smokeless Tobacco: Never Alcohol Use Standard Drinks/Week Comments Yes 0 [...] How often do you attend chur or alevism services? Never 12/08/2021 Do you belong to any clubs o r organizations such as synagogue groups, unions, fraternal or athletic groups, or [...] place to sleep or slept in a [place] facility (including now)? No 12/08/2021 Sex Assigned at Date Recorded Not on file documented as of this encounter Miscellaneous Notes * Telephone Encounter - Mirian Salinas Rn - 09/07/2013 1:54 PM EST Call to pt Phone rang many times no answer or answering machine, * Telephone Encounter - Mirian Salinas Rn - 09/04/2013 12:48 PM EST Call to above #, not sure if message was left, phone call ended during message. Called back phone rang many times on answering machine * Telephone Encounter - Radha Richter L.P.N. - 08/30/2013 2:52 PM EST I spoke with pt pt was sleeping She will have him call when he gets up * Telephone Encounter - Viviana Adames PA-C - 08/30/2013 12:00 PM EST Triage would you please call patient and tell him cardiology is trying to reach him to schedule a visit. He is very overdue for follow up and needs to be seen by cardiology. Agreed to this at our last visit. Thank you * Telephone Encounter - Radha Koch - 08/30/2013 11:41 AM EST This note is to advise Cassie Maierthat our office has made two calls to Duong on 08/14/13 and 08/27/13 to schedule an appointment in cardiology and he did not return our calls or respond to the letter that was sent out either. If you should hear from the patient please let him know that we havetried to reach him. Thank you Radha Koch BSR in cardiology. documented in this encounter Plan of Treatment Not on file documented as of this encounter Visit Diagnoses Not on filedocumented in this encounter Care Teams Credit And Collection Manager Relationship Specialty Start Date End Date Saúl Peguero MD PCP - General 06/14/06 07/21/15 Rebecca Bosch MD PCP - General Internal Medicine 07/22/15 12/11/20 Nely Betancourt MD PCP - General Internal Medicine 12/12/20 11/18/21 Ivania Bearden DO [address] [facility] [address] [place] [address] PCP - General Internal Medicine 11/19/21 02/23/22 [facility], Pcp [address] [place] [address] [address] [place] [address] PCP - General Internal Medicine 02/24/22 03/02/22 Viviana Adames PA-C [address] [place] [address] [place] [address] PCP - General Medical Physician Iv Technician 03/03/22 04/26/22 [facility], Pcp [address] [facility] [address] [place] [address] PCP - General Internal Medicine 04/27/22 04/09/24 Viviana Adames PA-C [address] [place] [address] [address] [place] [address] PCP - General Medical Physician Iv Technician 04/10/24 Thad Norton MD [address] [place] [address] [address] [place] [address] Specialist Cardiovascular Disease 01/23/21 2 Thad Norton MD [address] [place] [address] [address] [place] [address] Rice Dryer Mechanic Cardiovascular Disease 12/08/21 Anurag Tam MD [address] [place] [address] [address] [place] [address] Specialist Nephrology 12/08/21 Ruel Hunter DO [address] [facility] [address] [place] [address] Specialist Physiatry 12/08/21 Viviana Adames PA-C [address] [place] [address] [address] [place] [address] Specialist Medical Physician Iv Technician 01/27/23 04/09/24 documented as of this encounter
--- OUTSIDE RECORDS SUMMARY | 2025-05-27 18:52 | XMS_ITS | Clinical Summary ---
Author Organization [facility] Address [address] [place] [address] Care Team Providers Care X Ray Examiner Of Aircraft Name Role Phone Thad Norton MD Unavailable [phone] Anurag Tam MD Unavailable Ruel Hunter DO Unavailable Unavailable Viviana Adames PA-C Primary Care Provider Luke junior Allergies No known active allergies Medications Medication Sig Dispensed Refills Start Date End Date Status Multiple Vitamins-Iron (MULTI-VITAMIN/IRON OR) Take 1 Tab by mouth daily. 0 Active oxycodone (ROXICODONE) 15 MG immediate release tabletIndications:Radiculi tis, lumbosacral,Chronic midline low back pain without sciatica,Lumbosacral spondylosis without myelopathy,Renal cell cancer, left (HCC) Take 1 tablet by mouth 3 times daily as needed for Pain for up to 28 days. 84 tablet 0 02/24/2021 Active Morphine Sulfate ER 30 MG Tab CRIndications:Radiculitis, lumbosacral,Chronic midline low back pain without sciatica,Lumbosacral spondylosis without myelopathy,Renal cell cancer, left (HCC) Take 30 mg by mouth every 8 hours for 28 days. 84 tablet 0 02/24/2021 Active warfarin (COUMADIN) 2.5 MG tablet TAKE 2 TABLETS BY MOUTH AT THE SAME TIME DAILY*MAY CAUSE HEAVY BLEEDING*DO NOT CHANGE DIET WHILE ON 180 tablet 0 11/25/2021 Active pravastatin (PRAVACHOL) 80 MG tabletIndications:Pure hypercholesterolemia Take 1 Tablet by mouth daily. 90 Tablet 1 12/08/2021 Active amlodipine (NORVASC) 5 MG tablet Take 1 Tablet by mouth daily. 90 Tablet 0 12/08/2021 Active magnesium oxide (MAG-OX) 400 MG tablet TAKE 1 TABLET BY MOUTH EVERY DAY 90 Tablet 0 02/17/2022 Active furosemide (LASIX) 20 MG tablet 1 tablet daily, 2 tablets on Mon, Wed, Fri 0 Active lidocaine (LIDODERM) 5 % Place 1 Patch onto the skin every 24 hours. Apply for no more than 12 hours in any 24 hour period. 0 Active digoxin (LANOXIN) 125 MCG tabletIndications:Essentia l hypertension, benign,Permanent atrial fibrillation (HCC) TAKE 1/2 TABLET BY MOUTH EVERY DAY 135 Tablet 0 01/17/2024 Active metoprolol (LOPRESSOR) 100 MG tablet TAKE 2 TABLETS BY MOUTH TWICE A DAY 360 Tablet 3 04/25/2024 Active Active Problems Problem Noted Date Edema 04/10/2024 Last Assessment & Plan: Patient has chronic lower extremity edema most likely due to venous insufficiency. Patient be given prescription for Velcro wraps. Abdominal aneurysm 01/23/2021 Last Assessment & Plan: Patient with evidence of 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 Patient be sent for an ultrasound given his continued tobacco abuse Chest pain 01/23/2021 Last Assessment & Plan: Patient with chest discomfort with smoking. I have asked him to contact us if he develops exertional discomfort when he is not smoking. Of course encouraged him to quit smoking he thinks the vaping is less of an issue I told him it is more of an issue Mild anemia 10/09/2018 History of kidney cancer 03/26/2016 Chronic kidney disease, stage 3 03/26/20 16 Venous stasis dermatitis of both lower e xtremities 01/06/2016 Chronic venous insufficiency 01/06/2016 Last Assessment & Plan: Patient with chronic lower extremity edema that seems to be fairly well controlled at this time no change in therapy History of tobacco abuse 09/12/2014 Lipoma of arm 08/13/2013 Degenerative arthritis of lumbar spine 1 11/01/2009 Radiculitis, lumbosacral 08/31/2010 Smoking 05/22/2010 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 Depressive disorder, not elsewhere class ified 07/07/2006 Overview: Prior treatment with Prozac. Essential hypertension, benign 6 Overview: Prior treatment with Norvasc, lisinopril and hydrochlorothiazide Last Assessment & Plan: Patient states that he is taking his blood pressure at home and that it is 120 systolic he may have a component of whitecoat syndrome Pure hypercholesterolemia 07/07/2006 Overview: LDL cholesterol 09/16 220. 02/14 LDL cholesterol of 135 Lumbago 07/07/2006 Overview: SURERY FOR L5 S1 - Currently disabled because of back pain. Last MRI 02/14. Postoperative change L5-S1 without recurrent and disc herniation, spinal stenosis or foraminal stenosis. Mild L3 L4 and L4 L5 facet arthropathy with mild secondary foraminal stenosis. Overweight 07/07/2006 Atrial fibrillation Last Assessment & Plan: Patient remains in chronic atrial fibrillation rate controlled and anticoagulated no change in therapy at this time Resolved Problems Problem Noted Date Resolved Date Anticoagulated on Coumadin 08/28/201504/02 Mass of ureter 08/04/2015 04/23/2016 Overview: 08/19/2015-Nicho Cota radical nephroureterectomy Hydronephrosis, left 07/23/2015 01/13/2017 Abnormal renal function 07/04/2015 01/14/20 17 HCM 11/02/2006 09/08/2017 Overview: chest x-ray normal . Whole body scan mild arthritic changes in right AC joint . CAT scan of theneck slight submandibular adenopathy otherwise normal..TSH 0.82 12/14 and PSA 0.2 with normal CBC. normal CMP 02/14 with LDL cholesterol 135 with prior LDL cholesterol. 220 Immunizations Name Administration Dates Next Due COVID-19 (Moderna) 07/09/2021,12/12/2020, 021 COVID-19 (Moderna) PT Reported 12/12/2020,2020 Influenza (> 6 Months) 07/03/2015,2012,09/27/2011,09/03,06/17/2008,06/29/2005 Influenza H1N1 Pandemic Flu Vaccine 09/03/2009 Influenza Vaccine-preservati ve Free-quadrivalent 4 Years 06/28/2020,10/09/2018 Influenza vaccine high dose age 65 and over 06/16/2021,06/28/2020,06/24/2019,07/03,08/13/2013,09/27/2011,09/03/2009 ,06/17/2008,06/29/2005 Pneumoccoccal(Adult) Polysac charide PPSV23 03/08/2018 Pneumococcal Conjugate PCV-13 01/13/2017 Shingrix (Recombinant zoster vaccine) 06/28/2020 TD (STATE SUPPLIED FOR ADULT S AND CHILDREN) 09/26/2003 Tdap 09/27/2011 Family History Medical History Relation Name Comments Hypertension Father Stroke Father TIA [place] Maternal Grandfather Cancer, Other Maternal Grandmother BRAIN HEPATITIS Mother [place] Paternal Grandfather Cancer of the Lung Paternal Grandmother Relation Name Status Comments Brother 1 Alive healthy Brother 2 Alive MS Daughter 1 Alive healthy Daughter 2 Alive healthy Father CHF, TIA, recta l tumor benign Maternal Grandfather UK x po ssible [place] Maternal Grandmother UK Mother Alive hepatitis, vincent racts Paternal Grandfather UK x po ssible [place] Paternal Grandmother Brain t umor Sister Alive healthy Social History Tobacco Use Types Packs/Day Years Used Date Smoking Tobacco: Former Cigarettes 2 35 Q uit: 2014 Smokeless Tobacco: Never Quit: 08/07/2015 Alcohol Use Standard Drinks/Week Comments Not Currently 0 (1 standard drink = 0.6 oz pur e alcohol) Alcohol Habits Answer Date Recorded How often [...] How often do you attend chur or baptist services? Never 12/08/2021 Do you belong to any clubs o r organizations such as scientology groups, unions, fraternal or athletic groups, or [...] place to sleep or slept in a correction (including now)? No 12/08/2021 Sex Assigned at Date Recorded Not on file Last Filed Vital Signs Vital Sign Reading Time Taken Comments Blood Pressure 132/70 01/27/2023 10:05 AM EDT Pulse 67 04/10/2024 11:37 AM EDT Temperature 36.1 C (96.9 F) 12/08/2021 10:58 AM EDT Respiratory Rate 16 06/17/2020 9:18 AM EDT Oxygen Saturation 97% 04/10/2024 11:37 AM EDT Inhaled Oxygen Concentration - - Weight 96.6 kg (213 lb) 04/10/2024 11:37 AM EDT Height 188 cm (6' 2 ) 04/10/2024 11:37 AM EDT Body Mass Index 27.35 04/10/2024 11:37 AM EDT Plan of Treatment Health Maintenance Due Date Last Done Comments COLON CANCER SCREEN WITH STO OL CARD 1998 Lung Cancer Screening (Low D ose CT) 2003 SHINGLES VACCINE (2 of 2) 08/23/2020 06/28/2020 DTAP/TDAP/TD (2 - Td or Tdap) 09/27/2021 09/27/2011, 09/26/2003 DEPRESSION SCREEN 12/08/2022 12/08/2021, 12/26/2014 FALL RISK ASSESSMENT 12/08/2022 12/08/2021, 06/08/2021, 11/30/2019, Additional history exists BMI CHECK/ADVISE 09/12/2024 12/08/2021, 01/2021, 06/08/2021, Additional history exists Covid-19 Vaccine (2022-10 4 season) 2025 03/07/2023, 07/09/2021, 12/12/2020, Additional history exists INFLUENZA (#1) 2025 06/16/2021, 06/12, 06/28/2020, Additional history exists CHOLESTEROL SCREENING 12/10/2026 12/10/2021 , 09/19/2020, 11/30/2019, Additional history exists HEPATITIS C SCREENING Completed 03/26/2016 PNEUMOCOCCAL VACCINE Completed 03/08/2018, 01/14/20 17 Care Teams X Ray Examiner Of Aircraft Relationship Specialty Start Date End Date Viviana Adames PA-C [address] [place] [address] [place] [address] PCP - General Medical Physician Eligibility Worker 04/10/24 Thad Norton MD [address] [place] [address] [address] [place] [address] Supervisor Farm Equipment Maintenance Cardiovascular Disease 12/08/21 Anurag Tam MD [address] [place] [address] [place] [address] Specialist Nephrology 12/08/21 Ruel Hunter DO [address] [facility] [address] [place] [address] Specialist Physiatry 12/08/21
--- OUTSIDE RECORDS SUMMARY | 2025-05-27 18:52 | XMS_ITS | Encounter Summary ---
Author Organization [facility] Address [address] [place] [address] Care Team Providers Care Linux Solaris Administrator Name Role Phone Saúl Peguero MD Primary Care Provider Unavail able Rebecca Bosch MD Primary Care Provider UnavailNely Watson MD Primary Care Provide r Unavailable Thad Norton MD Unavailable [phone] Ivania Bearden DO Primary Care Provider Unavaila Thad Mckeon MD Unavailable [phone] Anurag aTm MD Unavailable Ruel Hunter DO Unavailable Unavailable [facility], Pcp Primary Care Provider Viviana Gray PA-C Primary Care Provider Luke junior [facility], Pcp Primary Care Provider Viviana Gray PA-C Unavailable Unavailable Viviana Adames PA-C Primary Care Provider Luke junior Encounter Details Date Type Department Care Team Description 04/11/2013 Controlled Substance Plan Medical Records [address] [place] [address] Abstract, Provider Social History Tobacco Use Types [...] How often do you attend chur or scientology services? Never 12/08/2021 Do you belong to any clubs o r organizations such as rastafarian groups, unions, fraternal or athletic groups, or [...] place to sleep or slept in a fpc (including now)? No 12/08/2021 Sex Assigned at Date Recorded Not on file documented as of this encounter Plan of Treatment Not on file documented as of this encounter Visit Diagnoses Not on filedocumented in this encounter Care Teams Linux Solaris Administrator Relationship Specialty Start Date End Date Saúl Peguero MD PCP - General 06/14/06 07/21/15 Rebecca Bosch MD PCP - General Internal Medicine 07/22/15 12/11/20 Nely Betancourt MD PCP - General Internal Medicine 12/12/20 11/18/21 Ivania Bearden DO [address] [place] [address] PCP - General Internal Medicine 11/19/21 02/23/22 [facility], Pcp [address] [place] [address] PCP - General Internal Medicine 02/24/22 03/02/22 Viviana Adames PA-C [address] [place] [address] [place] [address] PCP - General Medical Physician Farmworker Pullet Farm 03/03/22 04/26/22 [facility], Pcp [address] [place] [address] PCP - General Internal Medicine 04/27/22 04/09/24 Viviana Adames PA-C [address] [place] [address] [address] [place] [address] PCP - General Medical Physician Farmworker Pullet Farm 04/10/24 Thad Norton MD [address] [place] [address] [address] [place] [address] Specialist Cardiovascular Disease 01/23/21 2 Thad Norton MD [address] [place] [address] [address] [place] [address] Veneer Taper Cardiovascular Disease 12/08/21 Anurag Tam MD [address] [place] [address] [address] [place] [address] Specialist Nephrology 12/08/21 Ruel Hunter DO 2 [facility] [address] [place] [address] Specialist Physiatry 12/08/21 Viviana Adames PA-C [address] [place] [address] [address] [place] [address] Specialist Medical Physician Farmworker Pullet Farm 01/27/23 04/09/24 documented as of this encounter
--- OUTSIDE RECORDS SUMMARY | 2025-05-27 18:52 | XMS_ITS | Encounter Summary ---
Author Organization [facility] Address [address] [place] [address] Care Team Providers Care Sweatband Perforator Name Role Phone Saúl Peguero MD Primary Care Provider Unavail able Rebecca Bosch MD Primary Care Provider UnavailNely Watson MD Primary Care Provide r Unavailable Thad Norton MD Unavailable [phone] Ivania Bearden DO Primary Care Provider Unavaila Thad Mckeon MD Unavailable [phone] Anurag Tam MD Unavailable Ruel Hunter DO Unavailable Unavailable [facility], Pcp Primary Care Provider Viviana Gray PA-C Primary Care Provider Luke junior [facility], Pcp Primary Care Provider Viviana Gray PA-C Unavailable Unavailable Viviana Adames PA-C Primary Care Provider Luke junior Encounter Details Date Type Department Care Team Description 07/26/2013 Refill Physiatry - [address] [address] Ruel Hunter DO Social History Tobacco Use Types Packs/Day Years [...] week 12/08/2021 How often do you attend [facility] or church services? Never 12/08/2021 Do you belong to any clubs o r organizations such as samaritan groups, unions, fraternal or athletic groups, or [...] place to sleep or slept in a longterm (including now)? No 12/08/2021 Sex Assigned at Date Recorded Not on file documented as of this encounter Miscellaneous Notes * Telephone Encounter - Amaris Urias L.P.N. - 07/27/2013 8:04 AM EST Scripts to ppu spec dept * Telephone Encounter - Deanne Berg M.A. - 07/26/2013 2:48 PM EST Contracted Last ov 04/10/13 Component Value Date URINEOXYCOD POSITIVE 09/26/2012 URBENZO NEGATIVE 09/26/2012 URAMPHETAMIN NEGATIVE 09/26/2012 URMARIJUANA NEGATIVE 09/26/2012 UROPIATES NEGATIVE 09/26/2012 URBARBITUATE NEGATIVE 09/26/2012 URCOCAINE NEGATIVE 09/26/2012 METHADONE NONE DETECTED 09/26/2012 HYDROCODONE NOT DETECTED 09/26/2012 Scheduled office visit 08/28/13 * Telephone Encounter - Amaris Urias L.P.N. - 07/26/2013 2:38 PM ESTFrom: DUONG CARLISLE To: Ruel Hunter DO Sent: Yanci Jul 26, 2013 2:05 PM Subject: Medication Renewal Request Original authorizing provider: DO Duong Lagunas would like a refill of the following medications: oxycodone (OXYCONTIN) 30 MG TB12 [Ruel Hunter DO] oxycodone (ROXICODONE) 15 MG immediate release tablet [Ruel Hunter DO] pregabalin (LYRICA) 75 MG capsule [Ruel Hunter DO] Preferred pharmacy: [facility] when ready Comment: Requesting refills from [facility] TuesdayJul 31. [facility] [place] whenever I can geta ride. Also, please ask the if he'd like me to stop at the lab when I pick them up. Thank you documented in this encounter Plan of Treatment Not on file documented as of this encounter Visit Diagnoses Diagnosis Lumbago Degenerative arthritis of lumbar spine Lumbosacral spondylosis without myelopathy Radiculitis, lumbosacral Thoracic or lumbosacral neuritis or radiculitis, unspecified documented in this encounter Care Teams Sweatband Perforator Relationship Specialty Start Date End Date Saúl Peguero MD PCP - General 06/14/06 07/21/15 Rebecca Bosch MD PCP - General Internal Medicine 07/22/15 12/11/20 Nely Betancourt MD PCP - General Internal Medicine 12/12/20 11/18/21 Ivania Bearden DO [address] [place] [address] [address] [place] [address] PCP - General Internal Medicine 11/19/21 02/23/22 [facility], Pcp [address] [place] [address] [address] [place] [address] PCP - General Internal Medicine 02/24/22 03/02/22 Viviana Adames PA-C [address] [place] [address] [address] [place] [address] PCP - General Medical Physician Geospatial Intelligence Analyst 03/03/22 04/26/22 [facility], Pcp [address] [facility] [address] [place] [address] PCP - General Internal Medicine 04/27/22 04/09/24 Viviana Adames PA-C 2 [facility] [address] [place] [address] PCP - General Medical Physician Geospatial Intelligence Analyst 04/10/24 Thad Norton MD [address] [place] [address] [address] [place] [address] Specialist Cardiovascular Disease 01/23/21 2 Thad Norton MD [address] [place] [address] [address] [place] [address] Assembler Lay Ups Cardiovascular Disease 12/08/21 Anurag Tam MD [address] [place] [address] [place] [address] Specialist Nephrology 12/08/21 Ruel Hunter DO 2 [facility] [address] [place] [address] Specialist Physiatry 12/08/21 Viviana Adames PA-C [address] [place] [address] [address] [place] [address] Specialist Medical Physician Geospatial Intelligence Analyst 01/27/23 04/09/24 documented as of this encounter
--- OUTSIDE RECORDS SUMMARY | 2025-05-27 18:52 | XMS_ITS | Encounter Summary ---
Author Organization [facility] Address [address] [place] [address] Care Team Providers Care Rn Coronary Care Unit Name Role Phone Rebecca Bosch MD Primary Care Provider Nely Strong MD Primary Care Provide Thad Osorio MD Unavailable [phone] Ivania Bearden DO Primary Care Provider Thad Horvath MD Unavailable [phone] Anurag Tam MD Unavailable Ruel Hunter DO Unavailable Unavailable [facility], Pcp Primary Care Provider Viviana Gray PA-C Primary Care Provider Luke junior [facility], Pcp Primary Care Provider Viviana Gray PA-C Unavailable Unavailable Viviana Adames PA-C Primary Care Provider Luke junior Encounter Details Date Type Department Care Team Description 05/24/2019 Refill Physiatry - [place] [address] [place] [address] [id number] Ruel Hunter DO Social History Tobacco Use [...] How often do you attend chur or islam services? Never 12/08/2021 Do you belong to any clubs o r organizations such as lutheran groups, unions, fraternal or athletic groups, or [...] place to sleep or slept in a jail (including now)? No 12/08/2021 Sex Assigned at Date Recorded Not on file documented as of this encounter Miscellaneous Notes * Telephone Encounter - Meghana Griffin M.A. - 05/24/2019 4:11 PM EDT 2 rx placed in ppu * Telephone Encounter - Meghana Griffin M.A. - 05/24/2019 9:57 AM EDT Last refill 05/01/19 Last ov 04/10/19 Next ov 07/12/19 Under contract Mass PAT Lab Results Component Value Date URBENZO NONE DETECTED 01/09/2019 UROPIATES POSITIVE 01/09/2019 URBARBITUATE NONE DETECTED 01/09/2019 PAINAMPHETAM NONE DETECTED 01/09/2019 URAMPHETAMIN NEGATIVE 11/24/2017 PAINCOCAINE NONE DETECTED 01/09/2019 URCOCAINE NEGATIVE 11/24/2017 PAINCANNABIN NONE DETECTED 01/09/2019 URMARIJUANA NEGATIVE 11/24/2017 * Telephone Encounter - Meghana Griffin M.A. - 05/24/2019 9:53 AM EDTFrom: Duong Ling To: Ruel Hunter DO Sent: 05/24/2019 9:45 AM EDT Subject: Medication Renewal Request Original authorizing provider: DO Duong Lagunas would like a refill of the following medications: oxycodone (ROXICODONE) 15 MG immediate release tablet [Ruel Hunter DO] Morphine Sulfate ER 30 MG Tab CR [Ruel Hunter DO] Preferred pharmacy: Other - [facility] in [place] Comment: Good morning, I am requesting the above medications from Dr. Hunter, due to be filled May.29. Thank you very much. Duong documented in this encounter Plan of Treatment Not on file documented as of this encounter Visit Diagnoses Diagnosis Radiculitis, lumbosacral Thoracic or lumbosacral neuritis or radiculitis, unspecified Chronic midline low back pain without sciatica Lumbosacral spondylosis without myelopathy Renal cell cancer, left (HCC) documented in this encounter Care Teams Rn Coronary Care Unit Relationship Specialty Start Date End Date Rebecca Bosch MD PCP - General Internal Medicine 07/22/15 12/11/20 Nely Betancourt MD PCP - General Internal Medicine 12/12/20 11/18/21 Ivania Bearden DO [address] [place] [address] PCP - General Internal Medicine 11/19/21 02/23/22 [facility] Pcp [address] [place] [address] PCP - General Internal Medicine 02/24/22 03/02/22 Viviana Adames PA-C [address] [place] [address] PCP - General Medical Physician Teacher Education Instructor 03/03/22 04/26/22 [facility] Pcp [address] [place] [address] PCP - General Internal Medicine 04/27/22 04/09/24 Viviana Adames PA-C [address] [place] [address] PCP - General Medical Physician Teacher Education Instructor 04/10/24 Thad Norton MD 2 [facility] [address] [place] [address] Specialist Cardiovascular Disease 01/23/21 2 Thad Norton MD 2 [facility] [address] [place] [address] Registered Clinical Dietitian Cardiovascular Disease 12/08/21 Anurag Tam MD [address] [facility] [address] [place] [address] Specialist Nephrology 12/08/21 Ruel Hunter DO 2 [facility] [address] [place] [address] Specialist Physiatry 12/08/21 Viviana Adames PA-C [address] [place] [address] [address] [place] [address] Specialist Medical Physician Teacher Education Instructor 01/27/23 04/09/24 documented as of this encounter
--- OUTSIDE RECORDS SUMMARY | 2025-05-27 18:52 | XMS_ITS | Encounter Summary ---
Author Organization [facility] Address [address] [place] [address] Care Team Providers Care Shaft Mechanic Name Role Phone Rebecca Bosch MD Primary Care Provider Nely Strong MD Primary Care Provide Unavailable Thad Norton MD Unavailable [phone] Ivania Bearden DO Primary Care Provider Thad Horvath MD Unavailable [phone] Anurag Tam MD Unavailable Ruel Hunter DO Unavailable Unavailable [facility], Pcp Primary Care Provider Viviana Gray PA-C Primary Care Provider Luke junior [facility], Pcp Primary Care Provider Viviana Gray PA-C Unavailable Unavailable Viviana Adames PA-C Primary Care Provider Luke junior Encounter Details Date Type Department Care Team Description 04/04/2019 [employer] Repairer Report Medical Records [address] [place] [address] Anurag Tam MD [address] [place] [id number] Social History Tobacco Use Types Packs/Day Years [...] 12/08/2021 How often do you attend [facility] or cheondoism services? Never 12/08/2021 Do you belong to any clubs o r organizations such as sabianism groups, unions, fraternal or athletic groups, or [...] place to sleep or slept in a assisted (including now)? No 12/08/2021 Sex Assigned at Date Recorded Not on file documented as of this encounter Plan of Treatment Not on file documented as of this encounter Visit Diagnoses Not on filedocumented in this encounter Care Teams Shaft Mechanic Relationship Specialty Start Date End Date Rebecca Bosch MD PCP - General Internal Medicine 07/22/15 12/11/20 Nely Betancourt MD PCP - General Internal Medicine 12/12/20 11/18/21 Ivania Bearden DO [address] [place] [address] PCP - General Internal Medicine 11/19/21 02/23/22 [facility], Pcp [address] [place] [address] [place] [address] PCP - General Internal Medicine 02/24/22 03/02/22 Viviana Adames PA-C [address] [place] [address] [address] [place] [address] PCP - General Medical Physician Shipping Manager 03/03/22 04/26/22 [facility], Pcp [address] [place] [address] [place] [address] PCP - General Internal Medicine 04/27/22 04/09/24 Viviana Adames PA-C [address] [place] [address] [address] [place] [address] PCP - General Medical Physician Shipping Manager 04/10/24 Thad Norton MD [address] [place] [address] [address] [place] [address] Specialist Cardiovascular Disease 01/23/21 2 Thad Norton MD [address] [place] [address] [address] [place] [address] Human Resource Management Instructor Cardiovascular Disease 12/08/21 Anurag Tam MD [address] [place] [address] [address] [place] [address] Specialist Nephrology 12/08/21 Ruel Hunter DO 2 [facility] [address] [place] [address] Specialist Physiatry 12/08/21 Viviana Adames PA-C [address] [place] [address] [address] [place] [address] Specialist Medical Physician Shipping Manager 01/27/23 04/09/24 documented as of this encounter
--- OUTSIDE RECORDS SUMMARY | 2025-05-27 18:53 | XMS_ITS | Encounter Summary ---
Author Organization [facility] Address [address] [place] [address] Care Team Providers Care Charging Crane Operator Name Role Phone Saúl Peguero MD Primary Care Provider Unavail able Rebecca Bosch MD Primary Care Provider UnavailNely Watson MD Primary Care Provide r Unavailable Thad Norton MD Unavailable [phone] Ivania Bearden DO Primary Care Provider Unavaila Thad Mckeon MD Unavailable [phone] Anurag Tam MD Unavailable Ruel Hunter DO Unavailable Unavailable [facility], Pcp Primary Care Provider Viviana Gray PA-C Primary Care Provider Luke junior [facility], Pcp Primary Care Provider Viviana Gray PA-C Unavailable Unavailable Viviana Adames PA-C Primary Care Provider Luke junior Encounter Details Date Type Department Care Team Description 07/28/2011 Radiation Oncology Nurse Report Medical Records [address] [place] [address] Mohan Urena DO Social History Tobacco Use Types Packs/Day Years Used Date Smoking Tobacco: Every Day Cigarettes 2 35 Alcohol Use Standard Drinks/Week Comments Yes 0 [...] How often do you attend chur or denominational services? Never 12/08/2021 Do you belong to any clubs o r organizations such as jewish groups, unions, fraternal or athletic groups, or [...] place to sleep or slept in a retirement (including now)? No 12/08/2021 Sex Assigned at Date Recorded Not on file documented as of this encounter Plan of Treatment Not on file documented as of this encounter Visit Diagnoses Not on filedocumented in this encounter Care Teams Charging Crane Operator Relationship Specialty Start Date End Date Saúl Peguero MD PCP - General 06/14/06 07/21/15 Rebecca Bosch MD PCP - General Internal Medicine 07/22/15 12/11/20 Nely Betancourt MD PCP - General Internal Medicine 12/12/20 11/18/21 Ivania Bearden DO [address] [place] [address] PCP - General Internal Medicine 11/19/21 02/23/22 [facility], Pcp [address] [place] [address] PCP - General Internal Medicine 02/24/22 03/02/22 Viviana Adames PA-C [address] [place] [address] [place] [address] PCP - General Medical Physician Manager Fund 03/03/22 04/26/22 [facility], Pcp [address] [place] [address] PCP - General Internal Medicine 04/27/22 04/09/24 Viviana Adames PA-C [address] [place] [address] [address] [place] [address] PCP - General Medical Physician Manager Fund 04/10/24 Thad Norton MD [address] [place] [address] [address] [place] [address] Specialist Cardiovascular Disease 01/23/21 2 Thad Norton MD [address] [place] [address] [address] [place] [address] Product Inspection Coordinator Cardiovascular Disease 12/08/21 Anurag Tam MD [address] [place] [address] [address] [place] [address] Specialist Nephrology 12/08/21 Ruel Hunter DO 2 [facility] [address] [place] [address] Specialist Physiatry 12/08/21 Viviana Adames PA-C [address] [place] [address] [address] [place] [address] Specialist Medical Physician Manager Fund 01/27/23 04/09/24 documented as of this encounter
--- OUTSIDE RECORDS SUMMARY | 2025-05-27 18:53 | XMS_ITS | Encounter Summary ---
Author Organization [facility] Address [address] [place] [address] Care Team Providers Care Stockroom Associate Name Role Phone Saúl Peguero MD Primary Care Provider Unavail able Rebecca Bosch MD Primary Care Provider UnavailNely Watson MD Primary Care Provide r Unavailable Thad Norton MD Unavailable [phone] Ivania Bearden DO Primary Care Provider Unavaila Thad Mckeon MD Unavailable [phone] Anurag Tam MD Unavailable Ruel Hunter DO Unavailable Unavailable [facility], Pcp Primary Care Provider Viviana Gray PA-C Primary Care Provider Luke junior [facility], Pcp Primary Care Provider Viviana Gray PA-C Unavailable Unavailable Viviana Adames PA-C Primary Care Provider Luke junior Encounter Details Date Type Department Care Team Description 10/05/2011 Orders Only Cardiology - [address] [address] Erick Seth MD Social History Tobacco Use Types Packs/Day [...] week 12/08/2021 How often do you attend [facility] or restorationist services? Never 12/08/2021 Do you belong to any clubs o r organizations such as judaism groups, unions, fraternal or athletic groups, or [...] on filedocumented in this encounter Care Teams Stockroom Associate Relationship Specialty Start Date End Date Saúl Peguero MD PCP - General 06/14/06 07/21/15 Rebecca Bosch MD PCP - General Internal Medicine 07/22/15 12/11/20 Nely Betancourt MD PCP - General Internal Medicine 12/12/20 11/18/21 Ivania Bearden DO [address] [facility] [address] [place] [address] PCP - General Internal Medicine 11/19/21 02/23/22 [facility], [address] [place] [address] PCP - General Internal Medicine 02/24/22 03/02/22 Viviana Adames PA-C [address] [place] [address] [address] [place] [address] PCP - General Medical Physician Sales Representative [employer] 03/03/22 04/26/22 [facility], [address] [place] [address] PCP - General Internal Medicine 04/27/22 04/09/24 Viviana Adames PA-C [address] [place] [address] [place] [address] PCP - General Medical Physician Sales Representative [employer] 04/10/24 Thad Norton MD [address] [place] [address] [address] [place] [address] Specialist Cardiovascular Disease 01/23/21 2 Thad Norton MD [address] [place] [address] [address] [place] [address] Director Private Cardiovascular Disease 12/08/21 Anurag Tam MD [address] [place] [address] [place] [address] Specialist Nephrology 12/08/21 Ruel Hunter DO 2 [facility] [address] [place] [address] Specialist Physiatry 12/08/21 Viviana Adames PA-C [address] [place] [address] [place] [address] Specialist Medical Physician Sales Representative [employer] 01/27/23 04/09/24 documented as of this encounter
--- OUTSIDE RECORDS SUMMARY | 2025-05-27 18:53 | XMS_ITS | Encounter Summary ---
Author Organization [facility] Address [address] [place] [address] Care Team Providers Care Job Putter Up And Ticket Preparer Name Role Phone Rebecca Bosch MD Primary Care Provider Nely Strong MD Primary Care Provide Thad Osorio MD Unavailable [phone] Ivania Bearden DO Primary Care Provider Thad Horvath MD Unavailable [phone] Anurag Tam MD Unavailable Ruel Hunter DO Unavailable [facility], Pcp Primary Care Provider Viviana Gray PA-C Primary Care Provider Luke junior [facility], Pcp Primary Care Provider Viviana Gray PA-C Unavailable Unavailable Viviana Adames PA-C Primary Care Provider Luke junior Reason for Visit * Reason Onset Date Comments refill request 09/07/2017 Encounter Details Date Type Department Care Team Description 09/07/2017 [facility] [place] [address] [place] [address] Ruel Hunter DO refill request Social History Tobacco Use Types Packs/Day Years [...] week 12/08/2021 How often do you attend [facility] or adventism services? Never 12/08/2021 Do you belong to any clubs o r organizations such as catholic groups, unions, fraternal or athletic groups, or [...] place to sleep or slept in a detention (including now)? No 12/08/2021 Sex Assigned at Date Recorded Not on file documented as of this encounter Miscellaneous Notes * Telephone Encounter - Marisol Wall - 09/07/2017 8:09 AM EST Error please close documented in this encounter Plan of Treatment Not on file documented as of this encounter Visit Diagnoses Diagnosis Radiculitis, lumbosacral Thoracic or lumbosacral neuritis or radiculitis, unspecified Chronic midline low back pain without sciatica Lumbosacral spondylosis without myelopathy Renal cell cancer, left (HCC) documented in this encounter Care Teams Job Putter Up And Ticket Preparer Relationship Specialty Start Date End Date Rebecca Bosch MD PCP - General Internal Medicine 07/22/15 12/11/20 Nely Betancourt MD PCP - General Internal Medicine 12/12/20 11/18/21 Ivania Bearden, [address] [place] [address] PCP - General Internal Medicine 11/19/21 02/23/22 [facility], Pcp 2 [facility] [address] [place] [address] PCP - General Internal Medicine 02/24/22 03/02/22 Viviana Adames PA-C [address] [facility] [address] [place] [address] PCP - General Medical Physician Engineering Equipment Operator 03/03/22 04/26/22 [facility], Pcp [address] [facility] [address] [place] [address] PCP - General Internal Medicine 04/27/22 04/09/24 Viviana Adames PA-C [address] [facility] [address] [place] [address] PCP - General Medical Physician Engineering Equipment Operator 04/10/24 Thad Norton MD [address] [place] [address] [address] [place] [address] Specialist Cardiovascular Disease 01/23/21 2 Thad Norton MD [address] [place] [address] [address] [place] [address] Education Reviewer Cardiovascular Disease 12/08/21 Anurag Tam MD [address] [facility] [address] [place] [address] Specialist Nephrology 12/08/21 Ruel Hunter DO [address] [facility] [address] [place] [address] Specialist Physiatry 12/08/21 Viviana Adames PA-C [address] [facility] [address] [place] [address] Specialist Medical Physician Engineering Equipment Operator 01/27/23 04/09/24 documented as of this encounter
--- OUTSIDE RECORDS SUMMARY | 2025-05-27 18:53 | XMS_ITS | Encounter Summary ---
Author Organization [facility] Address [address] [place] [address] Care Team Providers Care Line Assembler Aircraft Name Role Phone Rebecca Bosch MD Primary Care Provider Nely Strong MD Primary Care Provide Thad Osorio MD Unavailable [phone] Ivania Bearden DO Primary Care Provider Thad Horvath MD Unavailable [phone] Anurag Tam MD Unavailable Ruel Hunter DO Unavailable Unavailable [facility], Pcp Primary Care Provider Viviana Gray PA-C Primary Care Provider Luke junior [facility], Pcp Primary Care Provider Viviana Gray PA-C Unavailable Unavailable Viviana Adames PA-C Primary Care Provider Luke junior Encounter Details Date Type Department Care Team Description 02/13/2018 [facility] Medical Records [address] [place] [address] Abstract, Provider Social History Tobacco Use Types [...] How often do you attend chur or sikhism services? Never 12/08/2021 Do you belong to any clubs o r organizations such as caodaism groups, unions, fraternal or athletic groups, or [...] place to sleep or slept in a fci (including now)? No 12/08/2021 Sex Assigned at Date Recorded Not on file documented as of this encounter Plan of Treatment Not on file documented as of this encounter Visit Diagnoses Not on filedocumented in this encounter Care Teams Line Assembler Aircraft Relationship Specialty Start Date End Date Rebecca Bosch MD PCP - General Internal Medicine 07/22/15 12/11/20 Nely Betancourt MD PCP - General Internal Medicine 12/12/20 11/18/21 Ivania Bearden, [address] [place] [address] PCP - General Internal Medicine 11/19/21 02/23/22 [facility] Pcp [address] [place] [address] PCP - General Internal Medicine 02/24/22 03/02/22 Viviana Adames PA-C [address] [place] [address] [place] [address] PCP - General Medical Physician Procurement Internship 03/03/22 04/26/22 [facility], Pcp [address] [place] [address] PCP - General Internal Medicine 04/27/22 04/09/24 Viviana Adames PA-C [address] [place] [address] PCP - General Medical Physician Procurement Internship 04/10/24 Thad Norton MD [address] [facility] [address] [place] [address] Specialist Cardiovascular Disease 01/23/21 2 Thad Norton MD [address] [facility] [address] [address] [place] [address] Watershed Program Manager Cardiovascular Disease 12/08/21 Anurag Tam MD [address] [facility] [address] [place] [address] Specialist Nephrology 12/08/21 Ruel Hunter DO [address] [facility] [address] [place] [address] Specialist Physiatry 12/08/21 Viviana Adames PA-C [address] [place] [address] [address] [place] [address] Specialist Medical Physician Procurement Internship 01/27/23 04/09/24 documented as of this encounter
--- OUTSIDE RECORDS SUMMARY | 2025-05-27 18:53 | XMS_ITS | Encounter Summary ---
Author Organization [facility] Address [address] [place] [address] Care Team Providers Care Team Otr Truck Driver Name Role Phone Saúl Peguero MD Primary Care Provider Unavail able Rebecca Bosch MD Primary Care Provider UnavailNely Watson MD Primary Care Provide r Unavailable Thad Norton MD Unavailable [phone] Ivania Bearden DO Primary Care Provider Unavaila Thad Mckeon MD Unavailable [phone] Anurag Tam MD Unavailable Ruel Hunter DO Unavailable Unavailable [facility], Pcp Primary Care Provider Viviana Gray PA-C Primary Care Provider Luke junior [facility], Pcp Primary Care Provider Viviana Gray PA-C Unavailable Unavailable Viviana Adames PA-C Primary Care Provider Luke junior Encounter Details Date Type Department Care Team Description 06/03/2015 Controlled Substance Plan Medical Records [address] [place] [address] Abstract, Provider Social History Tobacco Use Types [...] How often do you attend chur or baptism services? Never 12/08/2021 Do you belong to any clubs o r organizations such as religion groups, unions, fraternal or athletic groups, or [...] place to sleep or slept in a [facility] (including now)? No 12/08/2021 Sex Assigned at Date Recorded Not on file documented as of this encounter Plan of Treatment Not on file documented as of this encounter Visit Diagnoses Not on filedocumented in this encounter Care Teams Team Otr Truck Driver Relationship Specialty Start Date End Date Saúl Peguero MD PCP - General 06/14/06 07/21/15 Rebecca Bosch MD PCP - General Internal Medicine 07/22/15 12/11/20 Nely Betancourt MD PCP - General Internal Medicine 12/12/20 11/18/21 Ivania Bearden DO [address] [place] [address] PCP - General Internal Medicine 11/19/21 02/23/22 [facility], Pcp [address] [place] [address] PCP - General Internal Medicine 02/24/22 03/02/22 Viviana Adames PA-C [address] [place] [address] [place] [address] PCP - General Medical Physician Workforce Management Analyst 03/03/22 04/26/22 [facility], Pcp [address] [place] [address] PCP - General Internal Medicine 04/27/22 04/09/24 Viviana Adames PA-C [address] [place] [address] [address] [place] [address] PCP - General Medical Physician Workforce Management Analyst 04/10/24 Thad Norton MD [address] [place] [address] [address] [place] [address] Specialist Cardiovascular Disease 01/23/21 2 Thad Norton MD [address] [place] [address] [address] [place] [address] Table Games Manager Cardiovascular Disease 12/08/21 Anurag Tam MD [address] [place] [address] [address] [place] [address] Specialist Nephrology 12/08/21 Ruel Hunter DO 2 [facility] [address] [place] [address] Specialist Physiatry 12/08/21 Viviana Adames PA-C [address] [place] [address] [address] [place] [address] Specialist Medical Physician Workforce Management Analyst 01/27/23 04/09/24 documented as of this encounter
--- OUTSIDE RECORDS SUMMARY | 2025-05-27 18:53 | XMS_ITS | Encounter Summary ---
Author Organization [facility] Address [address] [place] [address] Care Team Providers Care Cognos Analyst Name Role Phone Rebecca Bosch MD Primary Care Provider Nely Strong MD Primary Care Provide Thad Osorio MD Unavailable [phone] Ivania Bearden DO Primary Care Provider Thad Horvath MD Unavailable [phone] Anurag Tam MD Unavailable Ruel Hunter DO Unavailable Unavailable [facility], Pcp Primary Care Provider Viviana Gray PA-C Primary Care Provider Luke junior [facility], Pcp Primary Care Provider Viviana Gray PA-C Unavailable Unavailable Viviana Adames PA-C Primary Care Provider Luke junior Encounter Details Date Type Department Care Team Description 09/28/2016 Patient Portal Concierge Report Medical Records [address] [place] [address] Campbell Bentley MD Social History Tobacco Use Types Packs/Day [...] How often do you attend chur or samaritan services? Never 12/08/2021 Do you belong to any clubs o r organizations such as congregational groups, unions, fraternal or athletic groups, or [...] on filedocumented in this encounter Care Teams Cognos Analyst Relationship Specialty Start Date End Date Rebecca Bosch MD PCP - General Internal Medicine 07/22/15 12/11/20 Nely Betancourt MD PCP - General Internal Medicine 12/12/20 11/18/21 Ivania Bearden, [address] [place] [address] PCP - General Internal Medicine 11/19/21 02/23/22 [facility], Pcp [address] [place] [address] PCP - General Internal Medicine 02/24/22 03/02/22 Viviana Aadmes PA-C [address] [place] [address] DR[address] [place] [address] PCP - General Medical Physician Pet Crematory Worker 03/03/22 04/26/22 [facility], Pcp [address] [place] [address] PCP - General Internal Medicine 04/27/22 04/09/24 Viviana Adames PA-C [address] [place] [address] PCP - General Medical Physician Pet Crematory Worker 04/10/24 Thad Norton MD [address] [place] [address] DRIVE [address] [place] [address] Specialist Cardiovascular Disease 01/23/21 2 Thad Norton MD [address] [place] [address] [address] [place] [address] Hydrologic Engineer Cardiovascular Disease 12/08/21 Anurag Tam MD [address] [place] [address] [address] [place] [address] Specialist Nephrology 12/08/21 Ruel Hunter DO 2 [facility] [address] [place] [address] Specialist Physiatry 12/08/21 Viviana Adames PA-C [address] [place] [address] [address] [place] [address] Specialist Medical Physician Pet Crematory Worker 01/27/23 04/09/24 documented as of this encounter
--- OUTSIDE RECORDS SUMMARY | 2025-05-27 18:53 | XMS_ITS | Encounter Summary ---
Author Organization [facility] Address [address] [place] [address] Care Team Providers Care Life Enrichment Director Name Role Phone Rebecca Bosch MD Primary Care Provider Nely Strong MD Primary Care Provide Thad Osorio MD Unavailable [phone] Ivania Bearden DO Primary Care Provider Thad Horvath MD Unavailable [phone] Anurag Tam MD Unavailable Ruel Hunter DO Unavailable [facility], Pcp Primary Care Provider Viviana Gray PA-C Primary Care Provider Luke junior [facility], Pcp Primary Care Provider Viviana Gray PA-C Unavailable Unavailable Viviana Adames PA-C Primary Care Provider Luke junior Encounter Details Date Type Department Care Team Description 02/03/2018 Pt. Non Urgent Medic al Question Physiatry - [address] [id number] Reul Hunter DO Social History Tobacco Use Types [...] week 12/08/2021 How often do you attend [facility] or catholic services? Never 12/08/2021 Do you belong to any clubs o r organizations such as religious groups, unions, fraNetaplan or athletic groups, or school groups? No [...] place to sleep or slept in a half-way (including now)? No 12/08/2021 Sex Assigned at Date Recorded Not on file documented as of this encounter Progress Notes * Deanne Berg M.A. - 02/03/2018 10:33 AM EDTFrom: Duong Ling To: Ruel Hunter DO Sent: 02/03/2018 9:08 AM EDT Subject: Good morning Just realized Tuesday is a holiday, the day I usually pick pulling machine operator so could you tell me if scripts will be ready today? My is off today so if they won't be ready, I can let her do errands, otherwise she is here to watch my injured dog when I go to [place]. I should have realized this earlier and put in my request on Tuesday. Thank you! Duong documented in this encounter Plan of Treatment Not on file documented as of this encounter Visit Diagnoses Not on filedocumented in this encounter Care Teams Life Enrichment Director Relationship Specialty Start Date End Date Rebecca Bosch MD PCP - General Internal Medicine 07/22/15 12/11/20 Nely Betancourt MD PCP - General Internal Medicine 12/12/20 11/18/21 Ivania Bearden DO [address] [facility] [address] [place] [address] PCP - General Internal Medicine 11/19/21 02/23/22 [facility], Pcp [address] [facility] [address] [place] [address] PCP - General Internal Medicine 02/24/22 03/02/22 Viviana Adames PA-C [address] [facility] [address] [place] [address] PCP - General Medical Physician Low Vision Therapist 03/03/22 04/26/22 [facility] [address] [place] [address] PCP - General Internal Medicine 04/27/22 04/09/24 Viviana Adames PA-C [address] [place] [address] PCP - General Medical Physician Low Vision Therapist 04/10/24 Thad Norton MD [address] [place] [address] [address] [place] [address] Specialist Cardiovascular Disease 01/23/21 2 Thad Norton MD [address] [place] [address] [place] [address] Group Sales Coordinator Cardiovascular Disease 12/08/21 Anurag Tam MD [address] [place] [address] [address] [place] [address] Specialist Nephrology 12/08/21 Ruel Hunter DO 2 [facility] [address] [place] [address] Specialist Physiatry 12/08/21 Viviana Adames PA-C [address] [place] [address] [address] [place] [address] Specialist Medical Physician Low Vision Therapist 01/27/23 04/09/24 documented as of this encounter
--- OUTSIDE RECORDS SUMMARY | 2025-05-27 18:53 | XMS_ITS | Encounter Summary ---
Author Organization [facility] Address [address] [place] [address] Care Team Providers Care Glue Clamp Operator Name Role Phone Rebecca Bosch MD Primary Care Provider Nely Strong MD Primary Care Provide Unavailable Thad Norton MD Unavailable [phone] Ivania Bearden DO Primary Care Provider Thad Horvath MD Unavailable [phone] Anurag Tam MD Unavailable Ruel Hunter DO Unavailable Unavailable [facility], Pcp Primary Care Provider Viviana Gray PA-C Primary Care Provider Luke junior [facility], Pcp Primary Care Provider Viviana Gray PA-C Unavailable Unavailable Viviana Adames PA-C Primary Care Provider Luke junior Encounter Details Date Type Department Care Team Description 12/27/2017 Copy Clerk Report Medical Records [address] [place] [address] Thad Norton MD [address] [place] [address] [address] [place] [address] Social History Tobacco Use Types Packs/Day Years [...] How often do you attend chur or hinduism services? Never 12/08/2021 Do you belong to any clubs o r organizations such as religious groups, unions, fraternal or athletic groups, or [...] on filedocumented in this encounter Care Teams Glue Clamp Operator Relationship Specialty Start Date End Date Rebecca Bosch MD PCP - General Internal Medicine 07/22/15 12/11/20 Nely Betancourt MD PCP - General Internal Medicine 12/12/20 11/18/21 Ivania Bearden DO [address] [facility] [address] [place] [address] PCP - General Internal Medicine 11/19/21 02/23/22 [facility], [address] [place] [address] PCP - General Internal Medicine 02/24/22 03/02/22 Viviana Adames PA-C [address] [place] [address] [address] [place] [address] PCP - General Medical Physician Prisoner Classification Interviewer 03/03/22 04/26/22 [facility], [address] [place] [address] PCP - General Internal Medicine 04/27/22 04/09/24 Viviana Adames PA-C [address] [place] [address] [address] [place] [address] PCP - General Medical Physician Prisoner Classification Interviewer 04/10/24 Thad Norton MD [address] [place] [address] [address] [place] [address] Specialist Cardiovascular Disease 01/23/21 2 Thad Norton MD [address] [place] [address] [address] [place] [address] Maintenance And Utilities Supervisor Cardiovascular Disease 12/08/21 Anurag Tam MD [address] [place] [address] [address] [place] [address] Specialist Nephrology 12/08/21 Ruel Hunter DO 2 [facility] [address] [place] [address] Specialist Physiatry 12/08/21 Viviana Adames PA-C [address] [place] [address] [address] [place] [address] Specialist Medical Physician Prisoner Classification Interviewer 01/27/23 04/09/24 documented as of this encounter
--- OUTSIDE RECORDS SUMMARY | 2025-05-27 18:53 | XMS_ITS | Encounter Summary ---
Author Organization [facility] Address [address] [place] [address] Care Team Providers Care Guest Relation Officer Name Role Phone Saúl Peguero MD Primary Care Provider Unavail able Rebecca Bosch MD Primary Care Provider UnavailNely Watson MD Primary Care Provide r Unavailable Thad Norton MD Unavailable [phone] Ivania Bearden DO Primary Care Provider Unavaila Thad Mckeon MD Unavailable [phone] Anurag Tam MD Unavailable Ruel Hunter DO Unavailable Unavailable [facility], Pcp Primary Care Provider Viviana Gray PA-C Primary Care Provider Luke junior [facility], Pcp Primary Care Provider Viviana Gray PA-C Unavailable Unavailable Viviana Adames PA-C Primary Care Provider Luke junior Encounter Details Date Type Department Care Team Description 06/26/2015 Orders Only Lab - [address] [address] Viviana Adames PA-C Social History Tobacco Use Types Packs/Day Years [...] 12/08/2021 How often do you attend [facility] or jew services? Never 12/08/2021 Do you belong to any clubs o r organizations such as sabianist groups, unions, fraternal or athletic groups, or [...] place to sleep or slept in a care home (including now)? No 12/08/2021 Sex Assigned at Date Recorded Not on file documented as of this encounter Plan of Treatment Not on file documented as of this encounter Visit Diagnoses Not on filedocumented in this encounter Care Teams Guest Relation Officer Relationship Specialty Start Date End Date Saúl Peguero MD PCP - General 06/14/06 07/21/15 Rebecca Bosch MD PCP - General Internal Medicine 07/22/15 12/11/20 Nely Betancourt MD PCP - General Internal Medicine 12/12/20 11/18/21 Ivania Bearden DO 2 [facility] [address] [place] [address] PCP - General Internal Medicine 11/19/21 02/23/22 [facility], [address] [place] [address] PCP - General Internal Medicine 02/24/22 03/02/22 Viviana Adames PA-C [address] [place] [address] [address]IVE [address] [place] [address] PCP - General Medical Physician Tree Puller 03/03/22 04/26/22 [facility], [address] [place] [address] PCP - General Internal Medicine 04/27/22 04/09/24 Viviana Adames PA-C [address] [place] [address] [place] [address] PCP - General Medical Physician Tree Puller 04/10/24 Thad Norton MD [address] [place] [address] [place] [address] Specialist Cardiovascular Disease 01/23/21 2 Thad Norton MD [address] [place] [address] [place] [address] Ring Spinner Cardiovascular Disease 12/08/21 Anurag Tam MD [address] [place] [address] [place] [address] Specialist Nephrology 12/08/21 Ruel Hunter DO 2 [facility] [address] [place] [address] Specialist Physiatry 12/08/21 Viviana Adames PA-C [address] [place] [address] [place] [address] Specialist Medical Physician Tree Puller 01/27/23 04/09/24 documented as of this encounter
--- OUTSIDE RECORDS SUMMARY | 2025-05-27 18:53 | XMS_ITS | Encounter Summary ---
Author Organization [facility] Address [address] [facility] [address] [place] [address] Phone Care Team Providers Care Masonry Inspector Name Role Phone Rebecca Clarke MD Primary Care Provider [phone] Encounter Details Date Type Department Care Team (Late Contact Info) Description 02/19/2021 Orders Only [facility] [address] [facility] [address] [place] [address] ProviderSha MD Social History Tobacco Use Types Packs/Day Years Used Date Smoking Tobacco: Former Cigarettes Q uit: 09/12/2014 Alcohol Use Standard Drinks/Week Comments No 0 (1 standard drink = 0.6 oz pur e alcohol) Sex and Gender Information Value Date Recorded Sex Assigned at Not on file Legal Sex Male 4:45 PM EST Gender Identity Not on file Sexual Orientation Not on file documented as of this encounter Plan of Treatment Upcoming Encounters Date Type Department Care Team (Late Contact Info) Description 06/26/2025 2:30 PM EDT Office Visit [facility] [address] [place] [id number] Anurag Tam MD [address] [facility] [address] [place] [address] documented as of this encounter Procedures Procedure Name Priority Date/Time Associated Diagnosis Comments EXT RESULT ENTRY Routine 02/19/2021 documented in this encounter Results * EXT RESULT ENTRY (02/19/2021) us Historical Provider LAB BLOOD ORDERABLES Su l Result documented in this encounter Visit Diagnoses Not on filedocumented in this encounter Care Teams Masonry Inspector Relationship Specialty Start Date End Date Rebecca Clarke MD [address] [place] [address] PCP - General Internal Medicine 06/13/24 documented as of this encounter
--- OUTSIDE RECORDS SUMMARY | 2025-05-27 18:53 | XMS_ITS | Encounter Summary ---
Author Organization [facility] Address [address] [facility] [address] [place] [address] Phone Care Team Providers Care Director Of Acquisitions Name Role Phone Rebecca Clarke MD Primary Care Provider [phone] Encounter Details Date Type Department Care Team (Late Contact Info) Description 01/08/2021 Orders Only [facility] [address] [facility] [address] [place] [address] ProviderSha MD Social History Tobacco [...] Visit [facility] [address] [place] [phone] Anurag Tam MD [address] [facility] [address] [place] [address] documented as of this encounter Procedures Procedure Name Priority Date/Time Associated Diagnosis Comments EXT RESULT ENTRY Routine 01/08/2021 documented in this encounter Results * EXT RESULT ENTRY (01/08/2021) us Historical Provider LAB BLOOD ORDERABLES Edit ed Result - Final documented in this encounter Visit Diagnoses Not on filedocumented in this encounter Care Teams Director Of Acquisitions Relationship Specialty Start Date End Date Rebecca Clarke MD [address] [place] [address] PCP - General Internal Medicine 06/13/24 documented as of this encounter
--- OUTSIDE RECORDS SUMMARY | 2025-05-27 18:53 | XMS_ITS | Encounter Summary ---
Author Organization [facility] Address [address] [place] [address] Care Team Providers Care Oil Well Services Field Supervisor Name Role Phone Rebecca Bosch MD Primary Care Provider Nely Strong MD Primary Care Provide Thad Osorio MD Unavailable [phone] Ivania Bearden DO Primary Care Provider Thad Horvath MD Unavailable [phone] Anurag Tam MD Unavailable Ruel Hunter DO Unavailable Unavailable [facility], Pcp Primary Care Provider Viviana Gray PA-C Primary Care Provider Luke junior [facility], Pcp Primary Care Provider Viviana Gray PA-C Unavailable Unavailable Viviana Adames PA-C Primary Care Provider Luke junior Encounter Details Date Type Department Care Team Description 06/23/2016 [facility] Medical Records [address] [place] [address] Abstract, Provider Social History Tobacco Use Types [...] How often do you attend chur or hindu services? Never 12/08/2021 Do you belong to any clubs o r organizations such as moravian groups, unions, fraternal or athletic groups, or [...] place to sleep or slept in a penitentiary (including now)? No 12/08/2021 Sex Assigned at Date Recorded Not on file documented as of this encounter Plan of Treatment Not on file documented as of this encounter Visit Diagnoses Not on filedocumented in this encounter Care Teams Oil Well Services Field Supervisor Relationship Specialty Start Date End Date Rebecca Bosch MD PCP - General Internal Medicine 07/22/15 12/11/20 Nely Betancourt MD PCP - General Internal Medicine 12/12/20 11/18/21 Ivania Bearden, [address] [place] [address] PCP - General Internal Medicine 11/19/21 02/23/22 [facility] Pcp [address] [place] [address] PCP - General Internal Medicine 02/24/22 03/02/22 Viviana Adames PA-C [address] [place] [address] [place] [address] PCP - General Medical Physician Administrative Court Justice 03/03/22 04/26/22 [facility], Pcp [address] [place] [address] PCP - General Internal Medicine 04/27/22 04/09/24 Viviana Adames PA-C [address] [place] [address] PCP - General Medical Physician Administrative Court Justice 04/10/24 Thad Norton MD [address] [facility] [address] [place] [address] Specialist Cardiovascular Disease 01/23/21 2 Thad Norton MD 2 [facility] [address] [place] [address] Language Arts Teacher Cardiovascular Disease 12/08/21 Anurag Tam MD [address] [facility] [address] [place] [address] Specialist Nephrology 12/08/21 Ruel Hunter DO 2 [facility] [address] [place] [address] Specialist Physiatry 12/08/21 Viviana Adames PA-C [address] [place] [address] [address] [place] [address] Specialist Medical Physician Administrative Court Justice 01/27/23 04/09/24 documented as of this encounter
--- OUTSIDE RECORDS SUMMARY | 2025-05-27 18:53 | XMS_ITS | Encounter Summary ---
Author Organization [facility] Address [address] [place] [address] Care Team Providers Care Spool Winder Name Role Phone Rebecca Bosch MD Primary Care Provider Nely Strong MD Primary Care Provide Thad Osorio MD Unavailable [phone] Ivania Bearden DO Primary Care Provider Thad Horvath MD Unavailable [phone] Anurag Tam MD Unavailable Ruel Hunter DO Unavailable [facility], Pcp Primary Care Provider Viviana Gray PA-C Primary Care Provider Luke junior [facility], Pcp Primary Care Provider Viviana Gray PA-C Unavailable Unavailable Viviana Adames PA-C Primary Care Provider uLke junior Encounter Details Date Type Department Care Team Description 05/22/2020 Pt. Non Urgent Medic al Question Physiatry - [address] [id number] Ruel Hunter DO Social History Tobacco Use [...] week 12/08/2021 How often do you attend [facility] or moravian services? Never 12/08/2021 Do you belong to any clubs o r organizations such as worship groups, unions, fraQualiLife or athletic groups, or school groups? No [...] place to sleep or slept in a custodial (including now)? No 12/08/2021 Sex Assigned at Date Recorded Not on file documented as of this encounter Progress Notes * Deanne Berg M.A. - 05/23/2020 8:21 AM EDTFrom: Duong Ling To: Ruel Hunter DO Sent: 05/22/2020 9:51 PM EDT Subject: Prescriptions Good morning, I just checked to see if my prescriptions were ready. There was no message and then I discovered the request had been sent to the office of [facility]. I don't know who this is but I know that when the request goes to Dr. Moralez, the response is always fast. Could someone please let me know w hat is going on? I only have the car available until noon. Thank you vey much. Duong documented in this encounter Plan of Treatment Not on file documented as of this encounter Visit Diagnoses Not on filedocumented in this encounter Care Teams Spool Winder Relationship Specialty Start Date End Date Rebecca Bosch MD PCP - General Internal Medicine 07/22/15 12/11/20 Nely Betancourt MD PCP - General Internal Medicine 12/12/20 11/18/21 Ivania Bearden DO [address] [facility] [address] [place] [address] PCP - General Internal Medicine 11/19/21 02/23/22 [facility], Pcp [address] [place] [address] [place] [address] PCP - General Internal Medicine 02/24/22 03/02/22 Viviana Adames PA-C [address] [place] [address] [place] [address] PCP - General Medical Physician Development Geologist 03/03/22 04/26/22 [facility] Pcp [address] [place] [address] [place] [address] PCP - General Internal Medicine 04/27/22 04/09/24 Viviana Adames PA-C [address] [place] [address] [address] [place] [address] PCP - General Medical Physician Development Geologist 04/10/24 Thad Norton MD [address] [place] [address] [address] [place] [address] Specialist Cardiovascular Disease 01/23/21 2 Thad Norton MD [address] [place] [address] [place] [address] Rn Prior Authorization Cardiovascular Disease 12/08/21 Anurag Tam MD [address] [place] [address] [address] [place] [address] Specialist Nephrology 12/08/21 Ruel Hunter DO [address] [place] [address] [address] [place] [address] Specialist Physiatry 12/08/21 Viviana Adames PA-C [address] [place] [address] [address] [place] [address] Specialist Medical Physician Development Geologist 01/27/23 04/09/24 documented as of this encounter
--- OUTSIDE RECORDS SUMMARY | 2025-05-27 18:53 | XMS_ITS | Clinical Summary ---
Author Organization [facility] Address [address] [place] [address] Phone Care Team Providers Care Cartridge Assembling Machine Adjuster Name Role Phone Rebecca Clarke MD Primary Care Provider [phone] Allergies No known active allergies Medications MULTIPLE VITAMINS-IRON PO Take 1 tablet by mouth Active amLODIPine (NORVASC) 5 MG tablet Take 1 tablet by mouth 1 (one) time each day 12/09/2016 Active magnesium oxide (MAG-OX) 400 MG tablet Take 1 tablet by mouth 1 (one) time each day 12/19/2017 Active oxyCODONE (ROXICODONE) 15 MG immediate release tablet Take 1 tablet by mouth 3 (three) times a day 11/18/2015 Active pravastatin (PRAVACHOL) 80 MG tablet Take 1 tablet by mouth 1 (one) time each day 11/20/2015 Active warfarin (COUMADIN) 2.5 MG tablet Take 2 tablets by mouth 1 (one) time each day 12/22/2016 Active metoprolol tartrate (LOPRESSOR) 100 MG tablet Take 2 tablets by mouth 2 (two) times a day 01/27/2021 Active morphine (MS CONTIN) 30 MG 12 hr tablet Take 30 mg by mouth every 8 (eight) hours 04/27/2022 Active lidocaine (LIDODERM) 5 % patch APPLY UP TO THREE PATCHES AT THE TIME, 12 HOURS ON, 12 HOURS OFF 03/29/2022 Active digoxin (LANOXIN) 125 MCG tablet Take 0.5 tablets by mouth 1 (one) time each day Active furosemide (LASIX) 20 MG tablet TAKE 1 TABLET (20 MG TOTAL) BY MOUTH IN THE MORNING AND IN THE EVENING 180 tablet 2 09/22/2024 Active Active Problems Problem Noted Date Diagnosed Date Chronic kidney disease stage 3 12/09/2021 Aneurysm 01/23/2021 Overview (06/09/2021): Last Assessment & Plan: Patient with evidence of 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 Patient be sent for an ultrasound given his continued tobacco abuse Chest pain 01/23/2021 Overview (06/09/2021): Last Assessment & Plan: Patient with chest discomfort with smoking. I have asked him to contact us if he develops exertional discomfort when he is not smoking. 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 Hypertensive renal disease 07/07/2006 Overview (11/05/2020): CT of abdomen 09/12 stone was passed. Lumbago 07/07/2006 Overview (11/05/2020): SURERY FOR L5 S1 - Currently disabled because of back pain. Last MRI 02/14. Postoperative change L5-S1 without recurrent and disc herniation, spinal stenosis or foraminal stenosis. Mild L3 L4 and L4 L5 facet arthropathy with mild secondary foraminal stenosis. Overweight 07/07/2006 Pure hypercholesterolemia 07/07/2006 Overview (11/05/2020): LDL cholesterol 09/16 220. 6/05 LDL cholesterol of 135 LDL cholesterol 09/16 220. 6/05 LDL cholesterol of 135 Resolved Problems Problem Noted Date Diagnosed Date Resolved Date Smoker 05/22/2010 05/25/2023 Immunizations Immunization Administration Dates Next Due H1N1 Inj Preservative Free 09/03/2009 Influenza Split High Dose Pr eservative Free IM 06/16/2021,06/28/2020,06/24/2019,07/03,08/13/2013,09/27/2011,09/03/2009 ,06/17/2008,06/29/2005 Influenza TIV (IM) 07/03/2015, 3,09/27/2011,09/03,06/17/2008,06/29/2005 Influenza, MDCK, PF, Quadrivalent 06/28/2020, Influenza, Unspecified 06/15/2023 Moderna SARS-COV-2 07/09/2021,12/12/2020, 021 Pneumococcal Conjugate 13-Valent 01/13/2017 Pneumococcal Polysaccharide 03/08/2018 Td 09/26/2003 Tdap 09/27/2011 Zoster 06/28/2020 Family History Medical History Relation Comments Cancer Brother Hypertension Father Relation Status Comments Brother Father Social History Tobacco Use Types Packs/Day Years Used Date Smoking Tobacco: Former Cigarettes 2 47 0 09/12/1967 - 09/12/2014 Smokeless Tobacco: Never Tobacco Cessation:Counseling Given: Not Answered Alcohol Use Standard Drinks/Week Comments Not Currently 0 (1 standard drink = 0.6 oz pur e alcohol) Sex and Gender Information Value Date Recorded Sex Assigned at Not on file Legal Sex Male 4:45 PM EST Gender Identity Not on file Sexual Orientation Not on file Last Filed Vital Signs Vital Sign Reading Time Taken Comments Blood Pressure 117/61 12/12/2024 1:42 PM EDT Pulse 66 12/12/2024 1:42 PM EDT Temperature - - Respiratory Rate - - Oxygen Saturation 98% 06/10/2021 12:33 PM EDT Inhaled Oxygen Concentration - - Weight 98.4 kg (217 lb) 12/12/2024 1:42 PM EDT Height 190.5 cm (6' 3 ) 11/05/2020 2:45 PM EST Body Mass Index 27.12 11/05/2020 2:45 PM EST Plan of Treatment Upcoming Encounters Date Type Department Care Team (Late st Contact Info) Description 06/26/2025 2:30 PM EDT Office Visit [facility] [address] [place] [id number] Anurag Tam MD [address] [address] Health Maintenance Due Date Last Done Comments Influenza Vaccine (#1) 2025 3, 06/16/2021, 06/28/2020, Additional history exists Pneumococcal Vaccine: 50+ Years Completed 03/08/2018, 01/13/2017 Pneumococcal Vaccine: Peds (0 to 5 Years) and At-Risk Patients (6 to 49 Years) Discontinued 03/08/2018, 01/13/2017 Hepatitis B Vaccine Aged Out No longe r eligible based on patient's age to complete this topic Insurance Medicare Harrison Medicare Harrison Care Teams Cartridge Assembling Machine Adjuster Relationship Specialty Start Date End Date Rebecca Clarke MD [address] [place] [address] PCP - General Internal Medicine 06/13/24
--- OUTSIDE RECORDS SUMMARY | 2025-05-27 18:53 | XMS_ITS | Encounter Summary ---
Author Organization [facility] Address [address] [place] [address] Care Team Providers Care Bi Consultant Name Role Phone Rebecca Bosch MD Primary Care Provider Nely Strong MD Primary Care Provide Thad Osorio MD Unavailable [phone] Ivania Bearden DO Primary Care Provider Thad Horvath MD Unavailable [phone] Anurag Tam MD Unavailable Ruel Hunter DO Unavailable Unavailable [facility], Pcp Primary Care Provider Viviana Gray PA-C Primary Care Provider Luke junior [facility], Pcp Primary Care Provider Viviana Gray PA-C Unavailable Unavailable Viviana Adames PA-C Primary Care Provider Luke junior Encounter Details Date Type Department Care Team Description 05/30/2019 [facility] Medical Records [address] [place] [address] Abstract, Provider Social History Tobacco Use Types [...] How often do you attend chur or shinto services? Never 12/08/2021 Do you belong to any clubs o r organizations such as muslim groups, unions, fraternal or athletic groups, or [...] on filedocumented in this encounter Care Teams Bi Consultant Relationship Specialty Start Date End Date Rebecca Bosch MD PCP - General Internal Medicine 07/22/15 12/11/20 Nely Betancourt MD PCP - General Internal Medicine 12/12/20 11/18/21 Ivania Bearden, [address] [place] [address] PCP - General Internal Medicine 11/19/21 02/23/22 [facility] Pcp [address] [place] [address] PCP - General Internal Medicine 02/24/22 03/02/22 Viviana Adames PA-C [address] [place] [address] [place] [address] PCP - General Medical Physician Morale Officer 03/03/22 04/26/22 [facility], Pcp [address] [place] [address] PCP - General Internal Medicine 04/27/22 04/09/24 Viviana Adames PA-C [address] [place] [address] PCP - General Medical Physician Morale Officer 04/10/24 Thad Norton MD [address] [place] [address] Specialist Cardiovascular Disease 01/23/21 2 Thad Norton MD 2 [facility] [address] [place] [address] Catering Service Manager Cardiovascular Disease 12/08/21 Anurag Tam MD [address] [place] [address] Specialist Nephrology 12/08/21 Ruel Hunter DO 2 [facility] [address] [place] [address] Specialist Physiatry 12/08/21 Viviana Adames PA-C [address] [place] [address] [address] [place] [address] Specialist Medical Physician Morale Officer 01/27/23 04/09/24 documented as of this encounter
--- OUTSIDE RECORDS SUMMARY | 2025-05-27 18:53 | XMS_ITS | Encounter Summary ---
Author Organization [facility] Address [address] [place] [address] Care Team Providers Care Psychiatric Aide Instructor Name Role Phone Saúl Peguero MD Primary Care Provider Unavail able Rebecca Bosch MD Primary Care Provider UnavailNely Watson MD Primary Care Provide Unavailable Thad Norton MD Unavailable [phone] Ivania Bearden DO Primary Care Provider Unavaila Thad Mckeon MD Unavailable [phone] Anurag Tam MD Unavailable Ruel Hunter DO Unavailable Unavailable [facility], Pcp Primary Care Provider Viviana Gray PA-C Primary Care Provider Luke junior [facility], Pcp Primary Care Provider Viviana Gray PA-C Unavailable Unavailable Viviana Adames PA-C Primary Care Provider Luke junior Encounter Details Date Type Department Care Team Description 07/29/2010 Main[facility] Developer Report Medical Records [address] [place] [address] Logan Adames MD Social History Tobacco Use Types Packs/Day [...] How often do you attend chur or church services? Never 12/08/2021 Do you belong to any clubs o r organizations such as uatsdin groups, unions, fraternal or athletic groups, or [...] place to sleep or slept in a skilled nursing (including now)? No 12/08/2021 Sex Assigned at Date Recorded Not on file documented as of this encounter Plan of Treatment Not on file documented as of this encounter Visit Diagnoses Not on filedocumented in this encounter Care Teams Psychiatric Aide Instructor Relationship Specialty Start Date End Date Saúl Peguero MD PCP - General 06/14/06 07/21/15 Rebecca Bosch MD PCP - General Internal Medicine 07/22/15 12/11/20 Nely Betancourt MD PCP - General Internal Medicine 12/12/20 11/18/21 Ivania Bearden DO [address] [place] [address] PCP - General Internal Medicine 11/19/21 02/23/22 [facility], Pcp [address] [place] [address] PCP - General Internal Medicine 02/24/22 03/02/22 Viviana Adames PA-C [address] [place] [address] [place] [address] PCP - General Medical Physician Moshgiach 03/03/22 04/26/22 [facility], Pcp [address] [place] [address] PCP - General Internal Medicine 04/27/22 04/09/24 Viviana Adames PA-C [address] [place] [address] [address] [place] [address] PCP - General Medical Physician Moshgiach 04/10/24 Thad Norton MD [address] [place] [address] [address] [place] [address] Specialist Cardiovascular Disease 01/23/21 2 Thad Norton MD [address] [place] [address] [address] [place] [address] Vehicle Fuel Systems Converter Cardiovascular Disease 12/08/21 Anurag Tam MD [address] [place] [address] [address] [place] [address] Specialist Nephrology 12/08/21 Ruel Hunter DO [address] [facility] [address] [place] [address] Specialist Physiatry 12/08/21 Viviana Adames PA-C [address] [place] [address] [address] [place] [address] Specialist Medical Physician Moshgiach 01/27/23 04/09/24 documented as of this encounter
--- OUTSIDE RECORDS SUMMARY | 2025-05-27 18:53 | XMS_ITS | Encounter Summary ---
Author Organization [facility] Address [address] [place] [address] Care Team Providers Care Aquarium Specialist Name Role Phone Rebecca Bosch MD Primary Care Provider Nely Strong MD Primary Care Provide Thad Osorio MD Unavailable [phone] Ivania Bearden DO Primary Care Provider Thad Horvath MD Unavailable [phone] Anurag Tam MD Unavailable Ruel Hunter DO Unavailable Unavailable [facility], Pcp Primary Care Provider Viviana Gray PA-C Primary Care Provider Luke junior [facility], Pcp Primary Care Provider Viviana Gray PA-C Unavailable Unavailable Viviana Adames PA-C Primary Care Provider Luke junior Encounter Details Date Type Department Care Team Description 11/14/2017 [facility] Medical Records [address] [place] [id number] Abstract, Provider Social History Tobacco Use Types [...] How often do you attend chur or mu-ism services? Never 12/08/2021 Do you belong to any clubs o r organizations such as denominational groups, unions, fraternal or athletic groups, or [...] place to sleep or slept in a nursing home (including now)? No 12/08/2021 Sex Assigned at Date Recorded Not on file documented as of this encounter Plan of Treatment Not on file documented as of this encounter Visit Diagnoses Not on filedocumented in this encounter Care Teams Aquarium Specialist Relationship Specialty Start Date End Date Rebecca Bosch MD PCP - General Internal Medicine 07/22/15 12/11/20 Nely Betancourt MD PCP - General Internal Medicine 12/12/20 11/18/21 Ivania Bearden, [address] [place] [address] PCP - General Internal Medicine 11/19/21 02/23/22 [facility] Pcp [address] [place] [address] PCP - General Internal Medicine 02/24/22 03/02/22 Viviana Adames PA-C [address] [place] [address] [place] [address] PCP - General Medical Physician Supply Teacher 03/03/22 04/26/22 [facility], Pcp [address] [place] [address] PCP - General Internal Medicine 04/27/22 04/09/24 Viviana Adames PA-C [address] [place] [address] PCP - General Medical Physician Supply Teacher 04/10/24 Thad Norton MD [address] [facility] [address] [place] [address] Specialist Cardiovascular Disease 01/23/21 2 Thad Norton MD [address] [facility] [address] [place] [address] Bilingual Instructor Cardiovascular Disease 12/08/21 Anurag Tam MD [address] [facility] [address] [place] [address] Specialist Nephrology 12/08/21 Ruel Hunter DO [address] [facility] [address] [place] [address] Specialist Physiatry 12/08/21 Viviana Adames PA-C [address] [place] [address] [address] [place] [address] Specialist Medical Physician Supply Teacher 01/27/23 04/09/24 documented as of this encounter
--- OUTSIDE RECORDS SUMMARY | 2025-05-27 18:53 | XMS_ITS | Encounter Summary ---
Author Organization [facility] Address [address] [place] [address] Care Team Providers Care Residential Child Care Counselor Name Role Phone Saúl Peguero MD Primary Care Provider Unavail able Rebecca Bosch MD Primary Care Provider UnavailNely Watson MD Primary Care Provide r Thad Osorio MD Unavailable [phone] Ivania Bearden DO Primary Care Provider Unavaila Thad Mckeon MD Unavailable [phone] Anurag Tam MD Unavailable Ruel Hunter DO Unavailable Unavailable [facility], Pcp Primary Care Provider Viviana Gray PA-C Primary Care Provider Luke junior [facility], Pcp Primary Care Provider Viviana Gray PA-C Unavailable Unavailable Viviana Adames PA-C Primary Care Provider Luke junior Encounter Details Date Type Department Care Team Description 08/25/2012 Refill Physiatry - [address] [address] Ruel Hunter DO Social History Tobacco Use [...] week 12/08/2021 How often do you attend [facility] or anabaptist services? Never 12/08/2021 Do you belong to any clubs o r organizations such as jew groups, unions, fraternal or athletic groups, or [...] encounter Miscellaneous Notes * Telephone Encounter - Deanne Berg M.A. - 08/25/2012 2:01 PM ESTFrom: DUNOG CARLISLE To: Ruel Hunter DO Sent: TueAug 25, 2012 1:57 PM Subject: Medication Renewal Request Original authorizing provider: DO Duong Lagunas would like a refill of the following medications: oxycodone (OXYCONTIN) 30 MG TB12 [Ruel Hunter DO] oxycodone (ROXICODONE) 15 MG immediate release tablet [Ruel Hunter DO] pregabalin (LYRICA) 75 MG capsule [Ruel Hunter DO] Preferred pharmacy: pick-up in [place] Tuesday afternoon Comment: These are due Tuesday; I would like to pick them up in [place] on Tuesday afternoon. When [facility] Dr[facility] Hunter last month we had planned for these to be sent to my pharmacy (because of the law change) but due to a recent system change there and the resulting myriad of problems, I feel safer picking them up as usual. Please make sure the knows this?Thank you very much documented in this encounter Plan of Treatment Not on file documented as of this encounter Visit Diagnoses Not on filedocumented in this encounter Care Teams Residential Child Care Counselor Relationship Specialty Start Date End Date Saúl Peguero MD PCP - General 06/14/06 07/21/15 Rebecca oBsch MD PCP - General Internal Medicine 07/22/15 12/11/20 Nely Betancourt MD PCP - General Internal Medicine 12/12/20 11/18/21 Ivania Bearden DO [address] [place] [address] [place] [address] PCP - General Internal Medicine 11/19/21 02/23/22 [facility], [address] [place] [address] PCP - General Internal Medicine 02/24/22 03/02/22 Viviana Adames PA-C [address] [place] [address] [place] [address] PCP - General Medical Physician Word Processing Supervisor 03/03/22 04/26/[address] [place] [address] PCP - General Internal Medicine 04/27/22 04/09/24 Viviana Adames PA-C [address] [place] [address] [place] [address] PCP - General Medical Physician Word Processing Supervisor 04/10/24 Thad Norton MD [address] [place] [address] [place] [address] Specialist Cardiovascular Disease 01/23/21 2 Thad Norton MD [address] [place] [address] [place] [address] Field Artillery Basic Cardiovascular Disease 12/08/21 Anurag Tam MD [address] [place] [address] [place] [address] Specialist Nephrology 12/08/21 Ruel Hunter DO [address] [place] [address] [place] [address] Specialist Physiatry 12/08/21 Viviana Adames PA-C [address] [place] [address] DR[address] [place] [address] Specialist Medical Physician Word Processing Supervisor 01/27/23 04/09/24 documented as of this encounter
--- OUTSIDE RECORDS SUMMARY | 2025-05-27 18:53 | XMS_ITS | Encounter Summary ---
Author Organization [facility] Address [address] [place] [address] Care Team Providers Care Manager Mechanical Name Role Phone Rebecca Bosch MD Primary Care Provider Nely Strong MD Primary Care Provide Thad Osorio MD Unavailable [phone] Ivania Bearden DO Primary Care Provider Thad Horvath MD Unavailable [phone] Anurag Tam MD Unavailable Ruel Hunter DO Unavailable Unavailable [facility], Pcp Primary Care Provider Viviana Gray PA-C Primary Care Provider Luke junior [facility], Pcp Primary Care Provider Viviana Gray PA-C Unavailable Unavailable Viviana Adames PA-C Primary Care Provider Luke junior Encounter Details Date Type Department Care Team Description 08/25/2016 [facility] Medical Records [address] [place] [address] Abstract, Provider Social History Tobacco Use Types [...] any clubs o r organizations such as nondenominational groups, unions, fraternal or athletic groups, or [...] place to sleep or slept in a fdc (including now)? No 12/08/2021 Sex Assigned at Date Recorded Not on file documented as of this encounter Plan of Treatment Not on file documented as of this encounter Visit Diagnoses Not on filedocumented in this encounter Care Teams Manager Mechanical Relationship Specialty Start Date End Date Rebecca Bosch MD PCP - General Internal Medicine 07/22/15 12/11/20 Nely Betancourt MD PCP - General Internal Medicine 12/12/20 11/18/21 Ivania Bearden, [address] [place] [address] PCP - General Internal Medicine 11/19/21 02/23/22 [facility] Pcp [address] [place] [address] PCP - General Internal Medicine 02/24/22 03/02/22 Viviana Adames PA-C [address] [place] [address] [place] [address] PCP - General Medical Physician Frame Trimmer 03/03/22 04/26/22 [facility], Pcp [address] [place] [address] PCP - General Internal Medicine 04/27/22 04/09/24 Viviana Adames PA-C [address] [place] [address] PCP - General Medical Physician Frame Trimmer 04/10/24 Thad Norton MD [address] [facility] [address] [place] [address] Specialist Cardiovascular Disease 01/23/21 2 Thad Norton MD 2 [facility] [address] [place] [address] Hearing Dog Trainer Cardiovascular Disease 12/08/21 Anurag Tam MD [address] [facility] [address] [place] [address] Specialist Nephrology 12/08/21 Ruel Hunter DO [address] [facility] [address] [place] [address] Specialist Physiatry 12/08/21 Viviana Adames PA-C [address] [place] [address] [address] [place] [address] Specialist Medical Physician Frame Trimmer 01/27/23 04/09/24 documented as of this encounter
--- OUTSIDE RECORDS SUMMARY | 2025-05-27 18:53 | XMS_ITS | Encounter Summary ---
Author Organization [facility] Address [address] [place] [address] Care Team Providers Care Awnings Mechanic Name Role Phone Saúl Peguero MD Primary Care Provider Unavail able Rebecca Bosch MD Primary Care Provider UnavailNely Watson MD Primary Care Provide r Unavailable Thad Norton MD Unavailable [phone] Ivania Bearden DO Primary Care Provider Unavaila Thad Mckeon MD Unavailable [phone] Anurag Tam MD Unavailable Ruel Hunter DO Unavailable Unavailable [facility], Pcp Primary Care Provider Viviana Gray PA-C Primary Care Provider Luke junior [facility], Pcp Primary Care Provider Viviana Gray PA-C Unavailable Unavailable Viviana Adames PA-C Primary Care Provider Luke junior Encounter Details Date Type Department Care Team Description 05/31/2012 Rotary Shear Operator Report Medical Records [address] [place] [address] Mohan Urena DO Social History Tobacco Use [...] week 12/08/2021 How often do you attend [facility] or gnosticist services? Never 12/08/2021 Do you belong to any clubs o r organizations such as taoist groups, unions, fraternal or athletic groups, or [...] place to sleep or slept in a chcf (including now)? No 12/08/2021 Sex Assigned at Date Recorded Not on file documented as of this encounter Plan of Treatment Not on file documented as of this encounter Visit Diagnoses Not on filedocumented in this encounter Care Teams Awnings Mechanic Relationship Specialty Start Date End Date Saúl Peguero MD PCP - General 06/14/06 07/21/15 Rebecca Bosch MD PCP - General Internal Medicine 07/22/15 12/11/20 Nely Betancourt MD PCP - General Internal Medicine 12/12/20 11/18/21 Ivania Bearden DO [address] [facility] [address] [place] [address] PCP - General Internal Medicine 11/19/21 02/23/22 [facility], Pcp [address] [place] [address] [place] [address] PCP - General Internal Medicine 02/24/22 03/02/22 Viviana Adames PA-C [address] [place] [address] DR[address] [place] [address] PCP - General Medical Physician Brake Coupler Dinkey 03/03/22 04/26/22 [facility], Pcp [address] [place] [address] PCP - General Internal Medicine 04/27/22 04/09/24 Viviana Adames PA-C [address] [place] [address] [address] [place] [address] PCP - General Medical Physician Brake Coupler Dinkey 04/10/24 Thad Norton MD [address] [place] [address] [address] [place] [address] Specialist Cardiovascular Disease 01/23/21 2 Thad Norton MD [address] [place] [address] [address] [place] [address] Weather Clerk Cardiovascular Disease 12/08/21 Anurag Tam MD [address] [place] [address] [address] [place] [address] Specialist Nephrology 12/08/21 Ruel Hunter DO [address] [facility] [address] [place] [address] Specialist Physiatry 12/08/21 Viviana Adames PA-C [address] [place] [address] [address] [place] [address] Specialist Medical Physician Brake Coupler Dinkey 01/27/23 04/09/24 documented as of this encounter
--- OUTSIDE RECORDS SUMMARY | 2025-05-27 18:53 | XMS_ITS | Encounter Summary ---
Author Organization [facility] Address [address] [place] [address] Care Team Providers Care Build And Deployment Engineer Name Role Phone Saúl Peguero MD Primary Care Provider Unavail able Rebecca Bosch MD Primary Care Provider UnavailNely Watson MD Primary Care Provide r Unavailable Thad Norton MD Unavailable [phone] Ivania Bearden DO Primary Care Provider Unavaila Thad Mckeon MD Unavailable [phone] Anurag Tam MD Unavailable Ruel Hunter DO Unavailable Unavailable [facility], Pcp Primary Care Provider Viviana Gray PA-C Primary Care Provider Luke junior [facility], Pcp Primary Care Provider Viviana Gray PA-C Unavailable Unavailable Viviana Adames PA-C Primary Care Provider Luke junior Encounter Details Date Type Department Care Team Description 06/16/2011 Subscription Crew Leader Report Medical Records [address] [place] [address] Mohan Urena DO Social History Tobacco Use [...] How often do you attend chur or rastafari services? Never 12/08/2021 Do you belong to any clubs o r organizations such as oriental orthodox groups, unions, fraternal or athletic groups, or [...] place to sleep or slept in a prison (including now)? No 12/08/2021 Sex Assigned at Date Recorded Not on file documented as of this encounter Plan of Treatment Not on file documented as of this encounter Visit Diagnoses Not on filedocumented in this encounter Care Teams Build And Deployment Engineer Relationship Specialty Start Date End Date Saúl Peguero MD PCP - General 06/14/06 07/21/15 Rebecca Bosch MD PCP - General Internal Medicine 07/22/15 12/11/20 Nely Betancourt MD PCP - General Internal Medicine 12/12/20 11/18/21 Ivania Bearden DO [address] [place] [address] PCP - General Internal Medicine 11/19/21 02/23/22 [facility], Pcp [address] [place] [address] PCP - General Internal Medicine 02/24/22 03/02/22 Viviana Adames PA-C [address] [place] [address] [place] [address] PCP - General Medical Physician Teleprinter 03/03/22 04/26/22 [facility], Pcp [address] [place] [address] PCP - General Internal Medicine 04/27/22 04/09/24 Viviana Adames PA-C [address] [place] [address] DR[address] [place] [address] PCP - General Medical Physician Teleprinter 04/10/24 Thad Norton MD [address] [place] [address] [address] [place] [address] Specialist Cardiovascular Disease 01/23/21 2 Thad Norton MD [address] [place] [address] [address] [place] [address] Real Estate Site Analyst Cardiovascular Disease 12/08/21 Anurag Tam MD [address] [place] [address] [address] [place] [address] Specialist Nephrology 12/08/21 Ruel Hunter DO 2 [facility] [address] [place] [address] Specialist Physiatry 12/08/21 Viviana Adames PA-C [address] [place] [address] [address] [place] [address] Specialist Medical Physician Teleprinter 01/27/23 04/09/24 documented as of this encounter
--- OUTSIDE RECORDS SUMMARY | 2025-05-27 18:53 | XMS_ITS | Encounter Summary ---
Author Organization [facility] Address [address] [place] [address] Care Team Providers Care Commercial Pest Control Technician Name Role Phone Rebecca Bosch MD Primary Care Provider Nely Strong MD Primary Care Provide Thad Osorio MD Unavailable [phone] Ivania Bearden DO Primary Care Provider Thad Horvath MD Unavailable [phone] Anurag Tam MD Unavailable Ruel Hunter DO Unavailable Unavailable [facility], Pcp Primary Care Provider Viviana Gray PA-C Primary Care Provider Luke junior [facility], Pcp Primary Care Provider Viviana Gray PA-C Unavailable Unavailable Viviana Adames PA-C Primary Care Provider Luke junior Encounter Details Date Type Department Care Team Description 10/25/2017 Chemical Production Engineer Report Medical Records [address] [place] [id number] Campbell Bentley MD Social History Tobacco Use [...] place to sleep or slept in a residential (including now)? No 12/08/2021 Sex Assigned at Date Recorded Not on file documented as of this encounter Plan of Treatment Not on file documented as of this encounter Visit Diagnoses Not on filedocumented in this encounter Care Teams Commercial Pest Control Technician Relationship Specialty Start Date End Date Rebecca Bosch MD PCP - General Internal Medicine 07/22/15 12/11/20 Nely Betancourt MD PCP - General Internal Medicine 12/12/20 11/18/21 Ivania Bearden, [address] [place] [address] PCP - General Internal Medicine 11/19/21 02/23/22 [facility], Pcp [address] [place] [address] PCP - General Internal Medicine 02/24/22 03/02/22 Viviana Adames PA-C [address] [place] [address] [address] [place] [address] PCP - General Medical Physician Accounting Generalist 03/03/22 04/26/22 [facility], Pcp [address] [place] [address] PCP - General Internal Medicine 04/27/22 04/09/24 Viviana Adames PA-C [address] [place] [address] PCP - General Medical Physician Accounting Generalist 04/10/24 Thad Norton MD [address] [place] [address] DR[address] [place] [address] Specialist Cardiovascular Disease 01/23/21 2 Thad Norton MD [address] [place] [address] [address] [place] [address] Structural Ironworker Cardiovascular Disease 12/08/21 Anurag Tam MD [address] [place] [address] [address] [place] [address] Specialist Nephrology 12/08/21 Ruel Hunter DO 2 [facility] [address] [place] [address] Specialist Physiatry 12/08/21 Viviana Adames PA-C [address] [place] [address] [address] [place] [address] Specialist Medical Physician Accounting Generalist 01/27/23 04/09/24 documented as of this encounter
--- OUTSIDE RECORDS SUMMARY | 2025-05-27 18:53 | XMS_ITS | Encounter Summary ---
Author Organization [facility] Address [address] [place] [address] Care Team Providers Care Physical Geographer Name Role Phone Rebecca Bosch MD Primary Care Provider Nely Strong MD Primary Care Provide Thad Osorio MD Unavailable [phone] Ivania Bearden DO Primary Care Provider Thad Horvath MD Unavailable [phone] Anurag Tam MD Unavailable Ruel Hunter DO Unavailable Unavailable [facility], Pcp Primary Care Provider Viviana Gray PA-C Primary Care Provider Luke junior [facility], Pcp Primary Care Provider Viviana Gray PA-C Unavailable Unavailable Viviana Adames PA-C Primary Care Provider Luke junior Encounter Details Date Type Department Care Team Description 10/22/2019 Pt. Non Urgent Medical Question Medicine/Pediatrics - [address] [phone] Rebecca Bosch MD Social History Tobacco Use [...] How often do you attend [facility] or jehovah's witness services? Never 12/08/2021 Do you belong to any clubs o r organizations such as christianity groups, unions, fraternal or athletic groups, or [...] as of this encounter Progress Notes * Michelle Ma M.A. - 10/22/2019 11:00 AM ESTFrom: Duong Ling To: Rebecca Bosch MD Sent: 10/22/2019 10:59 AM EST Subject: Appointment I finally remembered to schedule the [id number] appointment. It used to be I could schedule with anyone on Dr. Clarke's team but I can no longer find that option. It was nice because there were many more options for days and times - I used to see Viviana. Am I missing something? Why can't I schedule with Viviana's rep lacement? documented in this encounter Plan of Treatment Not on file documented as of this encounter Visit Diagnoses Not on filedocumented in this encounter Care Teams Physical Geographer Relationship Specialty Start Date End Date Rebecca Bosch MD PCP - General Internal Medicine 07/22/15 12/11/20 Nely Betancourt MD PCP - General Internal Medicine 12/12/20 11/18/21 Ivania Bearden DO [address] [facility] [address] [place] [address] PCP - General Internal Medicine 11/19/21 02/23/22 [facility], Pcp [address] [facility] [address] [place] [address] PCP - General Internal Medicine 02/24/22 03/02/22 Viviana Adames PA-C [address] [facility] [address] [place] [address] PCP - General Medical Physician Radiographic Technologist 03/03/22 04/26/22 [facility] [address] [place] [address] PCP - General Internal Medicine 04/27/22 04/09/24 Viviana Adames PA-C [address] [facility] [address] [place] [address] PCP - General Medical Physician Radiographic Technologist 04/10/24 Thad Norton MD [address] [place] [address] [address] [place] [address] Specialist Cardiovascular Disease 01/23/21 2 Thad Norton MD [address] [place] [address] [place] [address] Diagnostic Cardiac Sonographer Cardiovascular Disease 12/08/21 Anurag Tam MD [address] [place] [address] [address] [place] [address] Specialist Nephrology 12/08/21 Ruel Hunter DO [address] [facility] [address] [place] [address] Specialist Physiatry 12/08/21 Viviana Adames PA-C [address] [place] [address] [address] [place] [address] Specialist Medical Physician Radiographic Technologist 01/27/23 04/09/24 documented as of this encounter
--- OUTSIDE RECORDS SUMMARY | 2025-05-27 18:53 | XMS_ITS | Encounter Summary ---
Author Organization [facility] Address [address] [place] [address] Care Team Providers Care Loan Underwriter Name Role Phone Rebecca Bosch MD Primary Care Provider Nely Strong MD Primary Care Provide Thad Osorio MD Unavailable [phone] Ivania Bearden DO Primary Care Provider Thad Horvath MD Unavailable [phone] Anurag Tam MD Unavailable Ruel Hunter DO Unavailable Unavailable [facility], Pcp Primary Care Provider Viviana Gray PA-C Primary Care Provider Luke junior [facility], Pcp Primary Care Provider Viviana Gray PA-C Unavailable Unavailable Viviana Adames PA-C Primary Care Provider Luke junior Encounter Details Date Type Department Care Team Description 05/02/2017 [facility] Medical Records [address] [place] [id number] Abstract, Provider Social History Tobacco Use Types [...] How often do you attend chur or taoist services? Never 12/08/2021 Do you belong to any clubs o r organizations such as cheondoism groups, unions, fraternal or athletic groups, or [...] place to sleep or slept in a mcc (including now)? No 12/08/2021 Sex Assigned at Date Recorded Not on file documented as of this encounter Plan of Treatment Not on file documented as of this encounter Visit Diagnoses Not on filedocumented in this encounter Care Teams Loan Underwriter Relationship Specialty Start Date End Date Rebecca Bosch MD PCP - General Internal Medicine 07/22/15 12/11/20 Nely Betancourt MD PCP - General Internal Medicine 12/12/20 11/18/21 Ivania Bearden, [address] [place] [address] PCP - General Internal Medicine 11/19/21 02/23/22 [facility] Pcp [address] [place] [address] PCP - General Internal Medicine 02/24/22 03/02/22 Viviana Adames PA-C [address] [place] [address] [place] [address] PCP - General Medical Physician Tip Scourer 03/03/22 04/26/22 [facility], Pcp [address] [place] [address] PCP - General Internal Medicine 04/27/22 04/09/24 Viviana Adames PA-C [address] [place] [address] PCP - General Medical Physician Tip Scourer 04/10/24 Thad Norton MD [address] [facility] [address] [place] [address] Specialist Cardiovascular Disease 01/23/21 2 Thad Norton MD 2 [facility] [address] [place] [address] Senior Sous Chef Cardiovascular Disease 12/08/21 Anurag Tam MD [address] [facility] [address] [place] [address] Specialist Nephrology 12/08/21 Ruel Hunter DO 2 [facility] [address] [place] [address] Specialist Physiatry 12/08/21 Viviana Adames PA-C [address] [place] [address] [address] [place] [address] Specialist Medical Physician Tip Scourer 01/27/23 04/09/24 documented as of this encounter
--- OUTSIDE RECORDS SUMMARY | 2025-05-27 18:53 | XMS_ITS | Encounter Summary ---
Author Organization [facility] Address [address] [place] [address] Care Team Providers Care Campground Caretaker Name Role Phone Saúl Peguero MD Primary Care Provider Unavail able Rebecca Bosch MD Primary Care Provider UnavailNely Watson MD Primary Care Provide r Unavailable Thad Norton MD Unavailable [phone] Ivania Bearden DO Primary Care Provider Unavaila Thad Mckeon MD Unavailable [phone] Anurag Tam MD Unavailable Ruel Hunter DO Unavailable [facility]available [facility], Pcp Primary Care Provider Viviana Gray PA-C Primary Care Provider Luke junior [facility], Pcp Primary Care Provider Viviana Gray PA-C Unavailable Unavailable Viviana Adames PA-C Primary Care Provider Luke junior Encounter Details Date Type Department Care Team Description 10/20/2011 Community Health Nursing Director Report Medical Records [address] [place] [id number] Mohan Urena DO Social History Tobacco Use [...] week 12/08/2021 How often do you attend [facility] or quaker services? Never 12/08/2021 Do you belong to any clubs o r organizations such as bahai groups, unions, fraternal or athletic groups, or [...] place to sleep or slept in a alf (including now)? No 12/08/2021 Sex Assigned at Date Recorded Not on file documented as of this encounter Plan of Treatment Not on file documented as of this encounter Visit Diagnoses Not on filedocumented in this encounter Care Teams Campground Caretaker Relationship Specialty Start Date End Date Saúl Peguero MD PCP - General 06/14/06 07/21/15 Rebecca Bosch MD PCP - General Internal Medicine 07/22/15 12/11/20 Nely Betancourt MD PCP - General Internal Medicine 12/12/20 11/18/21 Ivania Bearden DO [address] [facility] [address] [place] [address] PCP - General Internal Medicine 11/19/21 02/23/22 [facility] Pcp [address] [place] [address] [place] [address] PCP - General Internal Medicine 02/24/22 03/02/22 Viviana Adames PA-C [address] [place] [address] [address] [place] [address] PCP - General Medical Physician Manager Convention 03/03/22 04/26/22 [facility] Pcp [address] [place] [address] PCP - General Internal Medicine 04/27/22 04/09/24 Viviana Adames PA-C [address] [place] [address] DR[address] [place] [address] PCP - General Medical Physician Manager Convention 04/10/24 Thad Norton MD [address] [place] [address] [address] [place] [address] Specialist Cardiovascular Disease 01/23/21 2 Thad Norton MD [address] [place] [address] [address] [place] [address] Electronic Component Processor Cardiovascular Disease 12/08/21 Anurag Tam MD [address] [place] [address] [address] [place] [address] Specialist Nephrology 12/08/21 Ruel Hunter DO 2 [facility] [address] [place] [address] Specialist Physiatry 12/08/21 Viviana Adames PA-C [address] [place] [address] [address] [place] [address] Specialist Medical Physician Manager Convention 01/27/23 04/09/24 documented as of this encounter
--- OUTSIDE RECORDS SUMMARY | 2025-05-27 18:53 | XMS_ITS | Encounter Summary ---
Author Organization [facility] Address [address] [place] [address] Care Team Providers Care Security Monitor Name Role Phone Rebecca Bosch MD Primary Care Provider Nely Strong MD Primary Care Provide Thad Osorio MD Unavailable [phone] Ivania Bearden DO Primary Care Provider Thad Horvath MD Unavailable [phone] Anurag Tam MD Unavailable Ruel Hunter DO Unavailable Unavailable [facility], Pcp Primary Care Provider Viviana Gray PA-C Primary Care Provider Luke junior [facility], Pcp Primary Care Provider Viviana Gray PA-C Unavailable Unavailable Viviana Adames PA-C Primary Care Provider Luke junior Encounter Details Date Type Department Care Team Description 10/17/2017 [facility] Medical Records [address] [place] [phone] Abstract, Provider Social History Tobacco Use Types [...] How often do you attend chur or restorationist services? Never 12/08/2021 Do you belong to any clubs o r organizations such as alevism groups, unions, fraternal or athletic groups, or [...] on filedocumented in this encounter Care Teams Security Monitor Relationship Specialty Start Date End Date Rebecca Bosch MD PCP - General Internal Medicine 07/22/15 12/11/20 Nely Betancourt MD PCP - General Internal Medicine 12/12/20 11/18/21 Ivania Bearden, [address] [place] [address] PCP - General Internal Medicine 11/19/21 02/23/22 [facility] Pcp [address] [place] [address] PCP - General Internal Medicine 02/24/22 03/02/22 Viviana Adames PA-C [address] [place] [address] [place] [address] PCP - General Medical Physician Bottom Turner 03/03/22 04/26/22 [facility], Pcp [address] [place] [address] PCP - General Internal Medicine 04/27/22 04/09/24 Viviana Adames PA-C [address] [place] [address] PCP - General Medical Physician Bottom Turner 04/10/24 Thad Norton MD [address] [facility] [address] [place] [address] Specialist Cardiovascular Disease 01/23/21 2 Thad Norton MD 2 [facility] [address] [place] [address] Manager Plant Cardiovascular Disease 12/08/21 Anurag Tam MD [address] [facility] [address] [place] [address] Specialist Nephrology 12/08/21 Ruel Hunter DO 2 [facility] [address] [place] [address] Specialist Physiatry 12/08/21 Viviana Adames PA-C [address] [place] [address] [address] [place] [address] Specialist Medical Physician Bottom Turner 01/27/23 04/09/24 documented as of this encounter
--- OUTSIDE RECORDS SUMMARY | 2025-05-27 18:53 | XMS_ITS | Encounter Summary ---
Author Organization [facility] Address [address] [place] [address] Care Team Providers Care Manager Nicu Name Role Phone Saúl Peguero MD Primary Care Provider Unavail able Rebecca Bosch MD Primary Care Provider UnavailNely Watson MD Primary Care Provide r Unavailable Thad Norton MD Unavailable [phone] Ivania Bearden DO Primary Care Provider Unavaila Thad Mckeon MD Unavailable [phone] Anurag Tam MD Unavailable Ruel Hunter DO Unavailable Unavailable [facility], Pcp Primary Care Provider Viviana Gray PA-C Primary Care Provider Luke junior [facility], Pcp Primary Care Provider Viviana Gray PA-C Unavailable Unavailable Viviana Adames PA-C Primary Care Provider Luke junior Encounter Details Date Type Department Care Team Description 12/01/2011 Crossing Guard Report Medical Records [address] [place] [id number] Mohan Urena DO Social History Tobacco Use [...] week 12/08/2021 How often do you attend [facility] or scientology services? Never 12/08/2021 Do you belong to any clubs o r organizations such as amish groups, unions, fraternal or athletic groups, or [...] filedocumented in this encounter Care Teams Manager Nicu Relationship Specialty Start Date End Date Saúl Peguero MD PCP - General 06/14/06 07/21/15 Rebecca Bosch MD PCP - General Internal Medicine 07/22/15 12/11/20 Nely Betancourt MD PCP - General Internal Medicine 12/12/20 11/18/21 Ivania Bearden DO [address] [facility] [address] [place] [address] PCP - General Internal Medicine 11/19/21 02/23/22 [facility], Pcp [address] [place] [address] [place] [address] PCP - General Internal Medicine 02/24/22 03/02/22 Viviana Adames PA-C [address] [place] [address] [address] [place] [address] PCP - General Medical Physician Liquor Runner 03/03/22 04/26/22 [facility], Pcp [address] [place] [address] PCP - General Internal Medicine 04/27/22 04/09/24 Viviana Adames PA-C [address] [place] [address] [address] [place] [address] PCP - General Medical Physician Liquor Runner 04/10/24 Thad Norton MD [address] [place] [address] [address] [place] [address] Specialist Cardiovascular Disease 01/23/21 2 Thad Norton MD [address] [place] [address] [address] [place] [address] Rn Tele Cardiovascular Disease 12/08/21 Anurag Tam MD [address] [place] [address] [address] [place] [address] Specialist Nephrology 12/08/21 Ruel Hunter DO 2 [facility] [address] [place] [address] Specialist Physiatry 12/08/21 Viviana Adames PA-C [address] [place] [address] [address] [place] [address] Specialist Medical Physician Liquor Runner 01/27/23 04/09/24 documented as of this encounter
--- OUTSIDE RECORDS SUMMARY | 2025-05-27 18:53 | XMS_ITS | Encounter Summary ---
Author Organization [facility] Address [address] [place] [address] Care Team Providers Care Enroute Controller Name Role Phone Saúl Peguero MD Primary Care Provider Unavail able Rebecca Bosch MD Primary Care Provider UnavailNely Watson MD Primary Care Provide r Unavailable Thad Norton MD Unavailable [phone] Ivania Bearden DO Primary Care Provider Unavaila Thad Mckeon MD Unavailable [phone] Anurag Tam MD Unavailable Ruel Hunter DO Unavailable Unavailable [facility], Pcp Primary Care Provider Viviana Gray PA-C Primary Care Provider Luke junior [facility], Pcp Primary Care Provider Viviana Gray PA-C Unavailable Unavailable Viviana Adames PA-C Primary Care Provider Luke junior Encounter Details Date Type Department Care Team Description 06/06/2012 Controlled Substance Contract with [facility] Medical Records [address] [place] [id number] Abstract, Provider Social History Tobacco Use Types [...] How often do you attend chur or adventism services? Never 12/08/2021 Do you belong to any clubs o r organizations such as episcopal groups, unions, fraternal or athletic groups, or [...] on filedocumented in this encounter Care Teams Enroute Controller Relationship Specialty Start Date End Date Saúl Peguero MD PCP - General 06/14/06 07/21/15 Rebecca Bosch MD PCP - General Internal Medicine 07/22/15 12/11/20 Nely Betancourt MD PCP - General Internal Medicine 12/12/20 11/18/21 Ivania Bearden DO [address] [facility] [address] [place] [address] PCP - General Internal Medicine 11/19/21 02/23/22 [facility], Pcp [address] [facility] [address] [place] [address] PCP - General Internal Medicine 02/24/22 03/02/22 Viviana Adames PA-C [address] [place] [address] [address] [place] [address] PCP - General Medical Physician Academic Advisor 03/03/22 04/26/22 [facility], Pcp [address] [place] [address] PCP - General Internal Medicine 04/27/22 04/09/24 Viviana Adames PA-C [address] [place] [address] [address] [place] [address] PCP - General Medical Physician Academic Advisor 04/10/24 Thad Norton MD [address] [place] [address] [address] [place] [address] Specialist Cardiovascular Disease 01/23/21 2 Thad Norton MD [address] [place] [address] [address] [place] [address] Rodeo Clown Cardiovascular Disease 12/08/21 Anurag Tam MD [address] [place] [address] [address] [place] [address] Specialist Nephrology 12/08/21 Ruel Hunter DO 2 [facility] [address] [place] [address] Specialist Physiatry 12/08/21 Viviana Adames PA-C [address] [place] [address] [address] [place] [address] Specialist Medical Physician Academic Advisor 01/27/23 04/09/24 documented as of this encounter
--- OUTSIDE RECORDS SUMMARY | 2025-05-27 18:53 | XMS_ITS | Encounter Summary ---
Author Organization [facility] Address [address] [place] [address] Care Team Providers Care Coffee Attendant Name Role Phone Rebecca Bosch MD Primary Care Provider Nely Strong MD Primary Care Provide Tahd Osorio MD Unavailable [phone] Ivania Bearden DO Primary Care Provider Thad Horvath MD Unavailable [phone] Anurag Tam MD Unavailable Ruel Hunter DO Unavailable Unavailable [facility], Pcp Primary Care Provider Viviana Gray PA-C Primary Care Provider Luke junior [facility], Pcp Primary Care Provider Viviana Gray PA-C Unavailable Unavailable Viviana Adames PA-C Primary Care Provider Luke junior Encounter Details Date Type Department Care Team Description 03/06/2018 Pt. Non Urgent Medic al Question Medicine/Pediatrics - [address] [id number] Viviana Adames PA-C Social History Tobacco Use [...] How often do you attend [facility] or church services? Never 12/08/2021 Do [...] Progress Notes * Radha Richter L.P.N. - 03/06/2018 9:54 AM EDTFrom: Duong Ling To: Viviana Adames PA-C Sent: 03/06/2018 7:33 AM EDT Subject: Immunizations Hi Duong Garcia has an appointment with you on Tuesday the . Could you also administer any immunizationshe is due for ? Thank you, Maria Guadalupe Ling documented in this encounter Plan of Treatment Not on file documented as of this encounter Visit Diagnoses Not on filedocumented in this encounter Care Teams Coffee Attendant Relationship Specialty Start Date End Date Rebecca Bosch MD PCP - General Internal Medicine 07/22/15 12/11/20 Nely Betancourt MD PCP - General Internal Medicine 12/12/20 11/18/21 Ahmed, Khadiga, DO [address] [place] [address] PCP - General Internal Medicine 11/19/21 02/23/22 [facility], [facility] [address] [facility] [address] [place] [address] PCP - General Internal Medicine 02/24/22 03/02/22 Viviana Adames PA-C [address] [place] [address] [address] [place] [address] PCP - General Medical Physician Beverage Host 03/03/22 04/26/22 [facility], [facility] [address] [place] [address] PCP - General Internal Medicine 04/27/22 04/09/24 Viviana Adames PA-C [address] [facility] [address] [place] [address] PCP - General Medical Physician Beverage Host 04/10/24 Thad Norton MD [address] [place] [address] [address] [place] [address] Specialist Cardiovascular Disease 01/23/21 2 Thad Norton MD [address] [place] [address] [place] [address] Instrumentation Specialist Cardiovascular Disease 12/08/21 Anurag Tam MD [address] [place] [address] [place] [address] Specialist Nephrology 12/08/21 Ruel Hunter DO [address] [facility] [address] [place] [address] Specialist Physiatry 12/08/21 Viviana Adames PA-C [address] [place] [address] DR[address] [place] [address] Specialist Medical Physician Beverage Host 01/27/23 04/09/24 documented as of this encounter
--- OUTSIDE RECORDS SUMMARY | 2025-05-27 18:53 | XMS_ITS | Encounter Summary ---
Author Organization [facility] Address [address] [place] [address] Care Team Providers Care Director Religious Education Name Role Phone Rebecca Bosch MD Primary Care Provider Nely Strong MD Primary Care Provide Unavailable Thad Norton MD Unavailable [phone] Ivania Bearden DO Primary Care Provider Thda Horvath MD Unavailable [phone] Anurag Tam MD Unavailable Ruel Hunter DO Unavailable Unavailable [facility], Pcp Primary Care Provider Viviana Gray PA-C Primary Care Provider Luke junior [facility], Pcp Primary Care Provider Viviana Gray PA-C Unavailable Unavailable Viviana Adames PA-C Primary Care Provider Luke junior Encounter Details Date Type Department Care Team Description 12/08/2016 Winding Rack Operator Report Medical Records [address] [place] [address] Anurag Tam MD [address] [place] [address] Social History Tobacco Use Types Packs/Day Years [...] week 12/08/2021 How often do you attend [facility] or uatsdin services? Never 12/08/2021 Do you belong to any clubs o r organizations such as islam groups, unions, fraternal or athletic groups, or [...] filedocumented in this encounter Care Teams Director Religious Education Relationship Specialty Start Date End Date Rebecca Bosch MD PCP - General Internal Medicine 07/22/15 12/11/20 Nely Betancourt MD PCP - General Internal Medicine 12/12/20 11/18/21 Ivania Bearden DO [address] [place] [address] PCP - General Internal Medicine 11/19/21 02/23/22 [facility], Pcp [address] [place] [address] [place] [address] PCP - General Internal Medicine 02/24/22 03/02/22 Viviana Adames PA-C [address] [place] [address] DR[address] [place] [address] PCP - General Medical Physician Highway Worker 03/03/22 04/26/22 [facility], Pcp [address] [place] [address] [place] [address] PCP - General Internal Medicine 04/27/22 04/09/24 Viviana Adames PA-C [address] [place] [address] DR[address] [place] [address] PCP - General Medical Physician Highway Worker 04/10/24 Thad Norton MD [address] [place] [address] [address] [place] [address] Specialist Cardiovascular Disease 01/23/21 2 Thad Norton MD [address] [place] [address] [address] [place] [address] Coil Winder Cardiovascular Disease 12/08/21 Anurag Tam MD [address] [place] [address] [address] [place] [address] Specialist Nephrology 12/08/21 Ruel Hunter DO 2 [facility] [address] [place] [address] Specialist Physiatry 12/08/21 Viviana Adames PA-C [address] [place] [address] [address] [place] [address] Specialist Medical Physician Highway Worker 01/27/23 04/09/24 documented as of this encounter
--- OUTSIDE RECORDS SUMMARY | 2025-05-27 18:53 | XMS_ITS | Encounter Summary ---
Author Organization [facility] Address [address] [place] [address] Care Team Providers Care Cra Name Role Phone Rebecca Bosch MD Primary Care Provider Nely Strong MD Primary Care Provide Thad Osorio MD Unavailable [phone] Ivania Bearden DO Primary Care Provider Thad Horvath MD Unavailable [phone] Anurag Tam MD Unavailable Ruel Hunter DO Unavailable Unavailable [facility], Pcp Primary Care Provider Viviana Gray PA-C Primary Care Provider Luke junior [facility], Pcp Primary Care Provider Viviana Gray PA-C Unavailable Unavailable Viviana Adames PA-C Primary Care Provider Luke junior Encounter Details Date Type Department Care Team Description 11/02/2019 [facility] Medical Records [address] [place] [id number] Abstract, Provider Social History Tobacco Use Types [...] How often do you attend chur or religion services? Never 12/08/2021 Do you belong to [...] on filedocumented in this encounter Care Teams Cra Relationship Specialty Start Date End Date Rebecca Bosch MD PCP - General Internal Medicine 07/22/15 12/11/20 Nely Betancourt MD PCP - General Internal Medicine 12/12/20 11/18/21 Ivania Bearden, [address] [place] [address] PCP - General Internal Medicine 11/19/21 02/23/22 [facility] Pcp [address] [place] [address] PCP - General Internal Medicine 02/24/22 03/02/22 Viviana Adames PA-C [address] [place] [address] [place] [address] PCP - General Medical Physician Meat Cutting Teacher 03/03/22 04/26/22 [facility], Pcp [address] [place] [address] PCP - General Internal Medicine 04/27/22 04/09/24 Viviana Adames PA-C [address] [place] [address] PCP - General Medical Physician Meat Cutting Teacher 04/10/24 Thad Norton MD [address] [facility] [address] [place] [address] Specialist Cardiovascular Disease 01/23/21 2 Thad Norton MD 2 [facility] [address] [place] [address] Field Enumerator Cardiovascular Disease 12/08/21 Anurag Tam MD [address] [facility] [address] [place] [address] Specialist Nephrology 12/08/21 Ruel Hunter DO 2 [facility] [address] [place] [address] Specialist Physiatry 12/08/21 Viviana Adames PA-C [address] [place] [address] [address] [place] [address] Specialist Medical Physician Meat Cutting Teacher 01/27/23 04/09/24 documented as of this encounter
--- OUTSIDE RECORDS SUMMARY | 2025-05-27 18:53 | XMS_ITS | Encounter Summary ---
Author Organization [facility] Address [address] [place] [address] Care Team Providers Care Splitter Hand Name Role Phone Rebecca Bosch MD Primary Care Provider Nely Strong MD Primary Care Provide Unavailable Thad Norton MD Unavailable [phone] Ivania Bearden DO Primary Care Provider Thad Horvath MD Unavailable [phone] Anurag Tam MD Unavailable Ruel Hunter DO Unavailable Unavailable [facility], Pcp Primary Care Provider Viviana Gray PA-C Primary Care Provider Luke junior [facility], Pcp Primary Care Provider Viviana Gray PA-C Unavailable Unavailable Viviana Adames PA-C Primary Care Provider Luke junior Encounter Details Date Type Department Care Team Description 11/05/2020 Gripper Attacher Report Medical Records [address] [place] [address] Anurag Tam MD [address] [place] [id number] Social History Tobacco Use Types Packs/Day Years [...] week 12/08/2021 How often do you attend [facility] or presybeterian services? Never 12/08/2021 Do you belong to any clubs o r organizations such as hinduism groups, unions, fraternal or athletic groups, or [...] Assigned at Date Recorded Not on file COVID-19 Exposure Response Date Recorded In the last month, have you been in contact with someone who was confirmed or suspected to have Coronavirus / COVID-19? No / Unsure 11/07/2020 8:59 AM EST documented as of this encounter Plan of Treatment Not on file documented as of this encounter Visit Diagnoses Not on filedocumented in this encounter Care Teams Splitter Hand Relationship Specialty Start Date End Date Rebecca Bosch MD PCP - General Internal Medicine 07/22/15 12/11/20 Nely Betancourt MD PCP - General Internal Medicine 12/12/20 11/18/21 Ivania Bearden DO [address] [place] [address] [address] [place] [address] PCP - General Internal Medicine 11/19/21 02/23/22 [facility], [address] [place] [address] PCP - General Internal Medicine 02/24/22 03/02/22 Viviana Adames PA-C [address] [place] [address] PCP - General Medical Physician C Application Developer 03/03/22 04/26/22 [facility], Pcp [address] [facility] [address] [place] [address] PCP - General Internal Medicine 04/27/22 04/09/24 Viviana Adames PA-C 2 [facility] [address] [place] [address] PCP - General Medical Physician C Application Developer 04/10/24 Thad Norton MD 2 [facility] [address] [place] [address] Specialist Cardiovascular Disease 01/23/21 2 Thad Norton MD [address] [place] [address] [address] [place] [address] Jewel Hole Driller Cardiovascular Disease 12/08/21 Anurag Tam MD [address] [place] [address] [place] [address] Specialist Nephrology 12/08/21 Ruel Hunter DO [address] [facility] [address] [place] [address] Specialist Physiatry 12/08/21 Viviana Adames PA-C [address] [place] [address] [place] [address] Specialist Medical Physician C Application Developer 01/27/23 04/09/24 documented as of this encounter
--- OUTSIDE RECORDS SUMMARY | 2025-05-27 18:53 | XMS_ITS | Encounter Summary ---
Author Organization [facility] Address [address] [place] [address] Care Team Providers Care Independent Sales Representative Name Role Phone Rebecca Bosch MD Primary Care Provider Nely Strong MD Primary Care Provide Thad Osorio MD Unavailable [phone] Ivania Bearden DO Primary Care Provider Thad Horvath MD Unavailable [phone] Anurag Tam MD Unavailable Ruel Hunter DO Unavailable Unavailable [facility], Pcp Primary Care Provider Viviana Gray PA-C Primary Care Provider Luke junior [facility], Pcp Primary Care Provider Viviana Gray PA-C Unavailable Unavailable Viviana Adames PA-C Primary Care Provider Luke junior Encounter Details Date Type Department Care Team Description 05/02/2017 [facility] Medical Records [address] [place] [id number] Abstract, Provider Social History Tobacco Use Types [...] How often do you attend chur or zoroastrian services? Never 12/08/2021 Do you belong to any clubs o r organizations such as advent groups, unions, fraternal or athletic groups, or [...] on filedocumented in this encounter Care Teams Independent Sales Representative Relationship Specialty Start Date End Date Rebecca Bosch MD PCP - General Internal Medicine 07/22/15 12/11/20 Nely Betancourt MD PCP - General Internal Medicine 12/12/20 11/18/21 Ivania Bearden, [address] [place] [address] PCP - General Internal Medicine 11/19/21 02/23/22 [facility] Pcp [address] [place] [address] PCP - General Internal Medicine 02/24/22 03/02/22 Viviana Adames PA-C [address] [place] [address] [place] [address] PCP - General Medical Physician Home Service Consultant 03/03/22 04/26/22 [facility], Pcp [address] [place] [address] PCP - General Internal Medicine 04/27/22 04/09/24 Viviana Adames PA-C [address] [place] [address] PCP - General Medical Physician Home Service Consultant 04/10/24 Thad Norton MD [address] [facility] [address] [place] [address] Specialist Cardiovascular Disease 01/23/21 2 Thad Norton MD 2 [facility] [address] [place] [address] Water/Wastewater Project Engineer Cardiovascular Disease 12/08/21 Anurag Tam MD [address] [facility] [address] [place] [address] Specialist Nephrology 12/08/21 Ruel Hunter DO 2 [facility] [address] [place] [address] Specialist Physiatry 12/08/21 Viviana Adames PA-C [address] [place] [address] [address] [place] [address] Specialist Medical Physician Home Service Consultant 01/27/23 04/09/24 documented as of this encounter
--- OUTSIDE RECORDS SUMMARY | 2025-05-27 18:53 | XMS_ITS | Encounter Summary ---
Author Organization [facility] Address [address] [place] [address] Care Team Providers Care Farm Loan Representative Name Role Phone Saúl Peguero MD Primary Care Provider Unavail able Rebecca Bosch MD Primary Care Provider UnavailNely Watson MD Primary Care Provide r Unavailable Thad Norton MD Unavailable [phone] Ivania Bearden DO Primary Care Provider Unavaila Thad Mckeon MD Unavailable [phone] Anurag Tam MD Unavailable Ruel Hunter DO Unavailable Unavailable [facility], Pcp Primary Care Provider Viviana Gray PA-C Primary Care Provider Luke junior [facility], Pcp Primary Care Provider Viviana Gray PA-C Unavailable Unavailable Viivana Adames PA-C Primary Care Provider Luke junior Encounter Details Date Type Department Care Team Description 02/25/2010 Release of Information Medical Records [address] [place] [id number] Abstract, Provider Social History Tobacco Use Types [...] 12/08/2021 How often do you attend chur ch or yarsani services? Never 12/08/2021 Do you belong to [...] on filedocumented in this encounter Care Teams Farm Loan Representative Relationship Specialty Start Date End Date Saúl Peguero MD PCP - General 06/14/06 07/21/15 Rebecca Bosch MD PCP - General Internal Medicine 07/22/15 12/11/20 Nely Betancourt MD PCP - General Internal Medicine 12/12/20 11/18/21 Ivania Bearden DO [address] [place] [address] PCP - General Internal Medicine 11/19/21 02/23/22 [facility], Pcp [address] [place] [address] PCP - General Internal Medicine 02/24/22 03/02/22 Viviana Adames PA-C [address] [place] [address] [place] [address] PCP - General Medical Physician Instructional Developer 03/03/22 04/26/22 [facility], Pcp [address] [place] [address] PCP - General Internal Medicine 04/27/22 04/09/24 Viviana Adames PA-C [address] [place] [address] [address] [place] [address] PCP - General Medical Physician Instructional Developer 04/10/24 Thad Norton MD [address] [place] [address] [address] [place] [address] Specialist Cardiovascular Disease 01/23/21 2 Thad Norton MD [address] [place] [address] [address] [place] [address] Silver Solution Mixer Cardiovascular Disease 12/08/21 Anurag Tam MD [address] [place] [address] [place] [address] Specialist Nephrology 12/08/21 Ruel Hunter DO 2 [facility] [address] [place] [address] Specialist Physiatry 12/08/21 Viviana Adames PA-C [address] [place] [address] [address] [place] [address] Specialist Medical Physician Instructional Developer 01/27/23 04/09/24 documented as of this encounter
--- OUTSIDE RECORDS SUMMARY | 2025-05-27 18:53 | XMS_ITS | Encounter Summary ---
Author Organization [facility] Address [address] [place] [address] Care Team Providers Care Wind Energy Technician Name Role Phone Saúl Peguero MD Primary Care Provider Unavail able Rebecca Bosch MD Primary Care Provider Unavaila Nely Ch MD Primary Care Provide Unavailable Thad Norton MD Unavailable [phone] Ivania Bearden DO Primary Care Provider Unavaila Thad Mckeon MD Unavailable [phone] Anurag Tam MD Unavailable Ruel Hunter DO Unavailable Unavailable [facility], Pcp Primary Care Provider Viviana Gray PA-C Primary Care Provider Luke junior [facility], Pcp Primary Care Provider Viviana Gray PA-C Unavailable Unavailable Viviana Adames PA-C Primary Care Provider Luke junior Reason for Visit * Reason Onset Date Comments E-prescribe Rx Request 12/05/2010 mult meds Encounter Details Date Type Department Care Team Description 12/05/2010 Refill Medicine/Pediatrics - [address] [address] Saúl Peguero MD E-prescribe Rx Request (mult meds) Social History Tobacco Use Types Packs/Day Years [...] any clubs o r organizations such as anabaptist groups, unions, fraternal or athletic groups, or [...] encounter Miscellaneous Notes * Telephone Encounter - Radha Richter - 12/07/2010 8:29 AM EDT Has fu apt on Please review and fax * Telephone Encounter - Nida Stout - 12/07/2010 7:55 AM EDT WHEN WAS THE PATIENT'S LAST APPOINTMENT IN ADULT MEDICINE? 05/22/2010 WHEN WAS THE LAST TIME THE PATIENT SAW THEIR PCP? 02/18/2010 Does patient have an upcoming appointment? Yes 12/15/2010 (THE MEDICATION REQUESTED IS ON THE MED LIST ABOVE) Did you check the Pharmacy information above?: YES Is this a mail order prescription request? NO Indicate how soon the patient needs the script: BY THE END OF THE DAY Patient would like script to be: FAXED TO PHARMACY Is the doctor here today?: YES Can the message wait until the doctor returns?: NO Patients current insurance carrier is: Payor: [employer] High[employer] Plan: PPO $25 [id number] Product Type: PPO [id number] documented in this encounter Plan of Treatment Not on file documented as of this encounter Visit Diagnoses Not on filedocumented in this encounter Care Teams Wind Energy Technician Relationship Specialty Start Date End Date Saúl Peguero MD PCP - General 06/14/06 07/21/15 Rebecca Bosch MD PCP - General Internal Medicine 07/22/15 12/11/20 Nely Betancourt MD PCP - General Internal Medicine 12/12/20 11/18/21 Ivania Bearden DO [address] [place] [address] [address] [place] [address] PCP - General Internal Medicine 11/19/21 02/23/22 [facility], [address] [place] [address] PCP - General Internal Medicine 02/24/22 03/02/22 Viviana Adames PA-C [address] [place] [address] [place] [address] PCP - General Medical Physician Maori Physiotherapist 03/03/22 04/26/[address] [place] [address] PCP - General Internal Medicine 04/27/22 04/09/24 Viviana Adames PA-C [address] [place] [address] [place] [address] PCP - General Medical Physician Maori Physiotherapist 04/10/24 Thad Norton MD [address] [place] [address] [place] [address] Specialist Cardiovascular Disease 01/23/21 2 Thad Norton MD [address] [facility] [address] [place] [address] Employment Agency Manager Cardiovascular Disease 12/08/21 Anurag Tam MD [address] [place] [address] [address] [place] [address] Specialist Nephrology 12/08/21 Ruel Hunter DO [address] [facility] [address] [place] [address] Specialist Physiatry 12/08/21 Viviana Adames PA-C [address] [place] [address] [address] [place] [address] Specialist Medical Physician Maori Physiotherapist 01/27/23 04/09/24 documented as of this encounter
--- OUTSIDE RECORDS SUMMARY | 2025-05-27 18:53 | XMS_ITS | Encounter Summary ---
Author Organization [facility] Address [address] [place] [address] Care Team Providers Care Coal Or Ore Controller Name Role Phone Rebecca Bosch MD Primary Care Provider Nely Strong MD Primary Care Provide Thad Osorio MD Unavailable [phone] Ivania Bearden DO Primary Care Provider Thad Horvath MD Unavailable [phone] Anurag Tam MD Unavailable Ruel Hunter DO Unavailable Unavailable [facility], Pcp Primary Care Provider Viviana Gray PA-C Primary Care Provider Luke junior [facility], Pcp Primary Care Provider Viviana Gray PA-C Unavailable Unavailable Viviana Adames PA-C Primary Care Provider Luke junior Encounter Details Date Type Department Care Team Description 01/06/2018 Mail Deliverer Report Medical Records [address] [place] [address] Clinic, [place] [address] [place] [address] Social History Tobacco Use Types Packs/Day Years [...] week 12/08/2021 How often do you attend [facility] or adventist services? Never 12/08/2021 Do you belong to any clubs o r organizations such as baptist groups, unions, fraSysClass or athletic groups, or school groups? No [...] place to sleep or slept in a usp (including now)? No 12/08/2021 Sex Assigned at Date Recorded Not on file documented as of this encounter Plan of Treatment Not on file documented as of this encounter Visit Diagnoses Not on filedocumented in this encounter Care Teams Coal Or Ore Controller Relationship Specialty Start Date End Date Rebecca Bosch MD PCP - General Internal Medicine 07/22/15 12/11/20 Nely Betancourt MD PCP - General Internal Medicine 12/12/20 11/18/21 Ivania Bearden, [address] [place] [address] PCP - General Internal Medicine 11/19/21 02/23/22 [facility], Pcp [address] [place] [address] PCP - General Internal Medicine 02/24/22 03/02/22 Viviana Adames PA-C [address] [place] [address] [place] [address] PCP - General Medical Physician Emergency Medicine 03/03/22 04/26/22 [facility], [facility] [address] [place] [address] PCP - General Internal Medicine 04/27/22 04/09/24 Viviana Adames PA-C [address] [place] [address] [address] [place] [address] PCP - General Medical Physician Emergency Medicine 04/10/24 Thad Norton MD [address] [place] [address] [address] [place] [address] Specialist Cardiovascular Disease 01/23/21 2 Thad Norton MD [address] [place] [address] [address] [place] [address] Senior Network Engineer Cardiovascular Disease 12/08/21 Anurag Tam MD [address] [place] [address] [place] [address] Specialist Nephrology 12/08/21 Ruel Hunter DO 2 [facility] [address] [place] [address] Specialist Physiatry 12/08/21 Viviana Adames PA-C [address] [place] [address] [place] [address] Specialist Medical Physician Emergency Medicine 01/27/23 04/09/24 documented as of this encounter
--- OUTSIDE RECORDS SUMMARY | 2025-05-27 18:53 | XMS_ITS | Encounter Summary ---
Author Organization [facility] Address [address] [place] [address] Care Team Providers Care Dispatcher Automobile Rental Name Role Phone Rebecca Bosch MD Primary Care Provider Nely Strong MD Primary Care Provide Thad Osorio MD Unavailable [phone] Ivania Bearden DO Primary Care Provider Thad Horvath MD Unavailable [phone] Anurag Tam MD Unavailable Ruel Hunter DO Unavailable Unavailable [facility], Pcp Primary Care Provider Viviana Gray PA-C Primary Care Provider Luke junior [facility], Pcp Primary Care Provider Viviana Gray PA-C Unavailable Unavailable Viviana Adames PA-C Primary Care Provider Luke junior Encounter Details Date Type Department Care Team Description 06/20/2019 Refill Physiatry - [place] [address] [place] [address] [id number] Ruel Hunter DO Social History Tobacco Use [...] How often do you attend chur or orthodoxy services? Never 12/08/2021 Do you belong to any clubs o r organizations such as taoism groups, unions, fraternal or athletic groups, or [...] Telephone Encounter - Meghana Griffin M.A. - 06/21/2019 4:20 PM EDT 2 Rx placed in Physiatry ppu. * Telephone Encounter - Meghana Griffin M.A. - 06/21/2019 8:28 AM EDT Last ov 04/10/19 Last refill 05/29/19 Next ov 07/12/19 Mass PAT Contracted Lab Results Component Value Date URBENZO NONE DETECTED 01/09/2019 UROPIATES POSITIVE 01/09/2019 URBARBITUATE NONE DETECTED 01/09/2019 PAINAMPHETAM NONE DETECTED 01/09/2019 URAMPHETAMIN NEGATIVE 11/24/2017 PAINCOCAINE NONE DETECTED 01/09/2019 URCOCAINE NEGATIVE 11/24/2017 PAINCANNABIN NONE DETECTED 01/09/2019 URMARIJUANA NEGATIVE 11/24/2017 * Telephone Encounter - Meghana Griffin M.A. - 06/21/2019 8:24 AM EDTFrom: Duong Ling To: Ruel Hunter DO Sent: 06/20/2019 10:15 PM EDT Subject: Medication Renewal Request Original authorizing provider: DO Duong Lagunas would like a refill of the following medications: oxycodone (ROXICODONE) 15 MG immediate release tablet [Ruel Hunter DO] Morphine Sulfate ER 30 MG Tab CR [Ruel Hunter DO] Preferred pharmacy: Other - [facility] in [place] when ready Comment: Good morning, I am requesting the above medications from Dr. Hunter, due to be filled Tuesday. Thank you very much. Duong documented in this encounter Plan of Treatment Not on file documented as of this encounter Visit Diagnoses Diagnosis Radiculitis, lumbosacral Thoracic or lumbosacral neuritis or radiculitis, unspecified Chronic midline low back pain without sciatica Lumbosacral spondylosis without myelopathy Renal cell cancer, left (HCC) documented in this encounter Care Teams Dispatcher Automobile Rental Relationship Specialty Start Date End Date Rebecca Bosch MD PCP - General Internal Medicine 07/22/15 12/11/20 Nely Betancourt MD PCP - General Internal Medicine 12/12/20 11/18/21 Ivania Bearden DO [address] [place] [address] PCP - General Internal Medicine 11/19/21 02/23/22 [facility], Pcp [address] [place] [address] PCP - General Internal Medicine 02/24/22 03/02/22 Viviana Adames PA-C [address] [place] [address] PCP - General Medical Physician Social Work Therapist 03/03/22 04/26/22 [facility], Pcp [address] [place] [address] PCP - General Internal Medicine 04/27/22 04/09/24 Viviana Adames PA-C [address] [place] [address] PCP - General Medical Physician Social Work Therapist 04/10/24 Thad Norton MD [address] [place] [address] [address] [place] [address] Specialist Cardiovascular Disease 01/23/21 2 Thad Norton MD [address] [place] [address] [address] [place] [address] Manager Environmental Affairs Cardiovascular Disease 12/08/21 Anurag Tam MD [address] [place] [address] [address] [place] [address] Specialist Nephrology 12/08/21 Ruel Hunter DO 2 [facility] [address] [place] [address] Specialist Physiatry 12/08/21 Viviana Adames PA-C [address] [place] [address] [address] [place] [address] Specialist Medical Physician Social Work Therapist 01/27/23 04/09/24 documented as of this encounter
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
--- OUTSIDE RECORDS SUMMARY | 2025-05-27 18:53 | XMS_ITS | Encounter Summary ---
Author Organization [facility] Address [address] [place] [address] Care Team Providers Care Purchasing Department Clerk Name Role Phone Rebecca Bosch MD Primary Care Provider Nely Strong MD Primary Care Provide Thad Osorio MD Unavailable [phone] Ivania Bearden DO Primary Care Provider Thad Horvath MD Unavailable [phone] Anurag Tam MD Unavailable Ruel Hunter DO Unavailable Unavailable [facility], Pcp Primary Care Provider Viviana Gray PA-C Primary Care Provider Luke junior [facility], Pcp Primary Care Provider Viviana Gray PA-C Unavailable Unavailable Viviana Adames PA-C Primary Care Provider Luke junior Encounter Details Date Type Department Care Team Description 05/01/2020 Pt. Non Urgent Medical Question Medicine/Pediatrics - [address] [phone] Rebecca Bosch MD Social History Tobacco Use [...] week 12/08/2021 How often do you attend [facility] or synagogue services? Never 12/08/2021 Do you belong to [...] place to sleep or slept in a long-term (including now)? No 12/08/2021 Sex Assigned at Date Recorded Not on file documented as of this encounter Progress Notes * Radha Richter L.P.N. - 05/01/2020 4:08 PM EDTFrom: Duong Ling To: Rebecca Bosch MD Sent: 05/01/2020 4:01 PM EDT Subject: Medication Discontinued Calcitriol 0.25 mg. has been discontinued by Dr. Tam as of April. documented in this encounter Plan of Treatment Not on file documented as of this encounter Visit Diagnoses Not on filedocumented in this encounter Care Teams Purchasing Department Clerk Relationship Specialty Start Date End Date Rebecca Bosch MD PCP - General Internal Medicine 07/22/15 12/11/20 Nely Betancourt MD PCP - General Internal Medicine 12/12/20 11/18/21 Ivania Bearden, [address] [facility] [address] [place] [address] PCP - General Internal Medicine 11/19/21 02/23/22 [facility], Pcp [address] [place] [address] PCP - General Internal Medicine 02/24/22 03/02/22 Viviana Adames PA-C [address] [facility] [address] [place] [address] PCP - General Medical Physician Light Equipment Operator 03/03/22 04/26/22 [facility], [facility] [address] [facility] [address] [place] [address] PCP - General Internal Medicine 04/27/22 04/09/24 Viviana Adames PA-C [address] [facility] [address] [place] [address] PCP - General Medical Physician Light Equipment Operator 04/10/24 Thad Norton MD [address] [place] [address] DR[address] [place] [address] Specialist Cardiovascular Disease 01/23/21 2 Thad Norton MD [address] [place] [address] [address] [place] [address] Airport Sales Agent Cardiovascular Disease 12/08/21 Anurag Tam MD [address] [place] [address] [place] [address] Specialist Nephrology 12/08/21 Ruel Hunter DO [address] [facility] [address] [place] [address] Specialist Physiatry 12/08/21 Viviana Adames PA-C [address] [place] [address] DR[address] [place] [address] Specialist Medical Physician Light Equipment Operator 01/27/23 04/09/24 documented as of this encounter
--- OUTSIDE RECORDS SUMMARY | 2025-05-27 18:53 | XMS_ITS | Encounter Summary ---
Author Organization [facility] Address [address] [place] [address] Care Team Providers Care Production Team Leader Name Role Phone Rebecca Bosch MD Primary Care Provider Nely Strong MD Primary Care Provide Thad Osorio MD Unavailable [phone] Ivania Bearden DO Primary Care Provider Thad Horvath MD Unavailable [phone] Anurag Tam MD Unavailable Ruel Hunter DO Unavailable Unavailable [facility], Pcp Primary Care Provider Viviana Gray PA-C Primary Care Provider Luke junior [facility], Pcp Primary Care Provider Viviana Gray PA-C Unavailable Unavailable Viviana Adames PA-C Primary Care Provider Luke junior Encounter Details Date Type Department Care Team Description 12/09/2015 Cardiovascular Radiologic Technologist Report Medical Records [address] [place] [address] Campbell Bentley MD Social History Tobacco Use [...] How often do you attend chur or anabaptism services? Never 12/08/2021 Do you belong to any clubs o r organizations such as yarsanism groups, unions, fraTxVia or athletic groups, or school groups? No [...] on filedocumented in this encounter Care Teams Production Team Leader Relationship Specialty Start Date End Date Rebecca Bosch MD PCP - General Internal Medicine 07/22/15 12/11/20 Nely Betancourt MD PCP - General Internal Medicine 12/12/20 11/18/21 Ivania Bearden, [address] [place] [address] PCP - General Internal Medicine 11/19/21 02/23/22 [facility] [place] Pcp [address] [place] [address] PCP - General Internal Medicine 02/24/22 03/02/22 Viviana Adames PA-C [address] [place] [address] [place] [address] PCP - General Medical Physician Steelworker 03/03/22 04/26/22 [facility], Pcp [address] [place] [address] PCP - General Internal Medicine 04/27/22 04/09/24 Viviana Adames PA-C [address] [place] [address] PCP - General Medical Physician Steelworker 04/10/24 Thad Norton MD [address] [facility] [address] [place] [address] Specialist Cardiovascular Disease 01/23/21 2 Thad Norton MD [address] [facility] [address] [place] [address] Transportation Solutions Manager Cardiovascular Disease 12/08/21 Anurag Tam MD [address] [facility] [address] [place] [address] Specialist Nephrology 12/08/21 Ruel Hunter DO [address] [facility] [address] [place] [address] Specialist Physiatry 12/08/21 Viviana Adames PA-C [address] [place] [address] [address] [place] [address] Specialist Medical Physician Steelworker 01/27/23 04/09/24 documented as of this encounter
--- OUTSIDE RECORDS SUMMARY | 2025-05-27 18:53 | XMS_ITS | Clinical Summary ---
Author Organization [facility] Address [address] [facility] [address] Phone Care Team Providers Care Design Tech Name Role Phone Viviana Adames Primary Care Provider [phone] Allergies No known active allergies Medications digoxin (LANOXIN) 125 mcg (0.125 mg) tabletIndications :Essential (primary) hypertension,Perm anent atrial fibrillation (CMS/HCC V24, CMS/HCC V28) TAKE 1/2 TABLET BY MOUTH DAILY 45 tablet 1 5 Active metoprolol succinate (TOPROL-XL) 100 mg 24 hr tablet Take 1 tablet (100 mg total) by mouth 4 (four) times a day. Do not crush or chew. Active magnesium oxide (MAG-OX) 400 mg magnesium tablet Take 1 tablet (400 mg total) by mouth 1 (one) time each day. Active furosemide (LASIX) 20 mg tablet Take 1 tablet (20 mg total) by mouth. 2 tablet Tuesday and 1 tablet on Tuesday Active pravastatin (PRAVACHOL) 80 mg tablet Take 1 tablet (80 mg total) by mouth at bedtime. Active warfarin (COUMADIN) 5 mg tablet Take 1 tablet (5 mg total) by mouth 1 (one) time each day with dinner. 6 days a week Active oxyCODONE (ROXICODONE) 15 mg immediate release tablet 1 tablet (15 mg total) 3 (three) times a day if needed. Active MORPHINE SULFATE ER PO Take 30 mg by mouth 3 (three) times a day. Active amLODIPine (NORVASC) 5 mg tablet Take 1 tablet (5 mg total) by mouth 1 (one) time each day. Active multivitamin tablet Take 1 tablet by mouth 1 (one) time each day. Active doxycycline hyclate (VIBRA-TABS) 100 mg tablet Take 1 tablet (100 mg total) by mouth 2 (two) times a day for 10 days. Take with a full glass of water and do not lie down for at least 30 minutes after. 20 each 05/25/20 25 Hospital, Clinic, or Other Facility Administered Medication Ordered Dose Route Frequency Start Date End Date Status TC-99M tetrofosmin P radio-isotope injection 9 millicurie 9 millicurie IV Once in imaging 05/23/2025 05/23/2025 Ended TC-99M tetrofosmin P radio-isotope injection 30.1 millicurie 30.1 millicurie IV Once in imaging 05/23/2025 05/23/2025 Ende d regadenoson (LEXISCAN) injection 0.4 mg 0.4 mg IV Once in imaging 05/23/2025 05/23/2025 End ed Active Problems Problem Noted Date Diagnosed Date Atrial fibrillation ([facility] V24, CMS/[facility] V28) 0 05/15/2025 Assessment & Plan (05/15/2025 7:46 PM EDT): Patient has history of atrial fibrillation with CHADSVASC score of 4 representing at 6.5% risk of thromboembolism. He remains on anticoagulation with warfarin. He denies any bleeding or excessive bruising. He is on digoxin for rate control. We will update labs. Shortness of breath 05/15/2025 Assessment & Plan (05/15/2025 7:46 PM EDT): Patient is reporting increased exertional shortness of breath which resolves quickly with rest. He does have history of smoking and his shortness of breath could be multifactorial. However, he has coronary risk factors and we will arrange for pharmacological nuclear stress testing to assess for any evidence of ischemia. We will also update an echocardiogram to assess for any cardiac dysfunction or valve disease. He has a loud systolic murmur on examination. Previous echocardiogram only showed mild valve dysfunction. Bilateral leg edema 05/15/2025 Assessment & Plan (05/15/2025 7:46 PM EDT): He has bilateral lower extremity edema and hyperpigmentation suggestive of peripheral vascular disease. He will have a peripheral vascular duplex completed and a referral to vascular has been placed. Compression wraps may be helpful in the future, however his cellulitis will need to resolve first. Cellulitis of lower extremity 05/15/2025 Assessment & Plan (05/15/2025 7:46 PM EDT): Patient reports chronic erythema of bilateral lower extremities. However, on examination it appears diffusely erythematous, feels warm to the touch, tender to palpation and edematous. I suspect cellulitis and have taken the liberty of prescribing a 10 day course of doxycycline 100 mg bid. I have advised the patient to follow up with PCP in 2 weeks to assess for resolution. Encounters Date Type Department Care Team Description 05/23/2025 8:30 AM EDT Ancillary Procedure [facility] [address] [place] [address] Atrial fibrillation, unspecified type (CMS/HCC V24, CMS/HCC V28); Shortness of breath 05/15/2025 9:10 AM EDT Office Visit [facility] [address] [place] [address] Erendira Amos NP Atrial fibrillation, unspecified type (CMS/HCC V24, CMS/HCC V28) (Primary Dx); Bilateral leg edema; Shortness of breath; Cellulitis of lower extremity, unspecified laterality 05/15/2025 Telephone [facility] [address] [facility] [address] [place] [address] Erendira Amos NP from Last 3 Months Surgical History Surgery Date Site/Laterality Comments OTHER SURGICAL HISTORY PROCEDURE: [place] UNLISTED PROCEDURE SPINE; COMMENT: L5-S1 DISC REPAIR ROTATOR CUFF REPAIR 1998 PROCEDURE: HISTORICAL ROTATOR CUFF REPAIR; COMMENT: RIGHT OTHER SURGICAL HISTORY 2002 PROCEDURE: [place] CYSTO W/SIMPLE REMOVAL STONE & STENT; COMMENT: RrEMOVE KIDNEY STONE LEFT COLONOSCOPY 2003, 1991 neg PROCEDURE: HISTORICAL COLONOSCOPY; COMMENT: both normal except mild diverticulosis OTHER SURGICAL HISTORY 03/15 PROCEDURE: [place] ESOPHAGOSCOPY FLEXIBLE TRANSORAL DIAGNOSTIC; COMMENT: gerd with [...] 11/13 Closed fracture of shaft of fibula 1887 DX:Closed fracture of shaft of fibula Routine [...] benign Maternal Grandfather [place] x po ssible [place] Maternal Grandmother [place] Mother Alive hepatitis, vincent racts Paternal Grandfather [place] x po ssible [place] Paternal Grandmother Brain t umor Sister Alive [...] Pressure 121/70 05/23/2025 8:48 AM EDT Pulse 63 05/15/2025 9:14 AM EDT Temperature - - Respiratory Rate - - Oxygen Saturation 95% 05/15/2025 9:14 AM EDT Inhaled Oxygen Concentration - - Weight 100 kg (221 lb) 05/23/2025 8:48 AM EDT Height 188 cm (6' 2 ) 05/23/2025 8:48 AM EDT Body Mass Index 28.37 05/23/2025 8:48 AM EDT Plan of Treatment Upcoming Encounters Date Type Department Care Team (Late st Contact Info) Description 07/19/2025 8:30 AM EST Ancillary Procedure [facility] [address] [facility] [address] [place] [address] 08/14/2025 9:00 AM EST Ancillary Procedure [facility] [address] [facility] [address] [place] [address] 08/15/2025 8:10 AM EST Office Visit [facility] [address] [place] [address] Erendira Amos NP [address] [place] [address] Dr [place] [address] Health Maintenance Due Date Last Done Comments Zoster Vaccines (2 of 2) 08/23/2020 06/28/2020 Colorectal Cancer Screening: Stool Based Tests (FOBT/FIT) 08/21/2022 Falls Risk Assessment 08/21/2022 Hepatitis C Screening 08/21/2022 Lung Cancer Screening (Low Dose CT) 08/21/2022 Medicare Annual Wellness Visit 08/21/2022 Social Influencers of Health Screening 08/21/2022 Cholesterol Screening (Lipid Panel) 01/06/2023 01/06/2018 Depression Screening 09/12/2024 Influenza Vaccine (#1) 2025 , 06/15/2023, 2022, Additional history exists Hypertension/CHF/CAD Annual BMP Blood Test 05/20/2026 05/20/2025 DTaP,Tdap,and Td Vaccines (5 - Td or Tdap) 03/26/2035 03/26/2025, 02/22/2022, 09/27/2011, Additional history exists Pneumococcal Vaccine: 50+ Years Completed 03/08/2018, 01/13/2017 RSV Immunization Adult Patients Completed 10/06/2023 COVID-19 Vaccine Completed 02/21/2025, , 06/15/2023, Additional history exists HIB Vaccines Aged Out No longer eligi [...] (CMS/HCC V24, CMS/HCC V28) Shortness of breath CBC WITH AUTO DIFFERENTIAL Routine 05/20/2025 7:06 AM EDT Atrial fibrillation, unspecified type (CMS/HCC V24, CMS/HCC V28) Bilateral leg edema Shortness of breath Cellulitis of lower extremity, unspecified laterality CBC AND DIFFERENTIAL Routine 05/20/2025 7:06 AM EDT Atrial fibrillation, unspecified type (CMS/HCC V24, CMS/HCC V28) Bilateral leg edema Shortness of breath Cellulitis of lower extremity, unspecified laterality DIGOXIN LEVEL Routine 05/20/2025 7:06 AM EDT Atrial fibrillation, unspecified type (CMS/HCC V24, CMS/HCC V28) Bilateral leg edema Shortness of breath Cellulitis of lower extremity, unspecified laterality MAGNESIUM Routine 05/20/2025 7:06 AM EDT Atrial fibrillation, unspecified type (CMS/HCC V24, CMS/HCC V28) Bilateral leg edema Shortness of breath Cellulitis of lower extremity, unspecified laterality COMPREHENSIVE METABOLIC PANEL Routine 05/20/2025 7:06 AM EDT Atrial fibrillation, unspecified type (CMS/HCC V24, CMS/HCC V28) Bilateral leg edema Shortness of breath Cellulitis of lower extremity, unspecified laterality ECG 12-LEAD Routine 05/15/2025 8:13 PM EDT Atrial fibrillation, unspecified type (CMS/HCC V24, CMS/HCC V28) from Last 3 Months Results * NM LEXISCAN STRESS TEST W/ [...] Function Comments Resting ejection fraction was 67%. Erendira Amos NP CV STRESS PROCEDURES Final R esult * (ABNORMAL) CBC auto differential (05/20/2025 7:06 AM EDT) WBC 6.1 3.4 - 10.8 x10E3/uL [facility] RBC 4.21 4.14 - 5.80 x10E6/uL [facility] 1 Hemoglobin 12.7(L) 13.0 - 17.7 g/dL [facility] 1 Hematocrit 39.3 37.5 - 51.0 % [facility] 1 MCV 93 79 - 97 fL [facility] 1 MCH 30.2 26.6 - 33.0 pg [facility] 1 MCHC 32.3 31.5 - 35.7 g/dL [facility] 1 RDW 13.1 11.6 - 15.4 % [facility] 1 Platelets 167 150 - 450 x10E3/uL [facility] 1 Neutrophils 60 Not Estab. % [facility] 1 Lymphocytes 28 Not Estab. % [facility] 1 Monocytes 8 Not Estab. % [facility] 1 Eosinophils 2 Not Estab. % [facility] 1 Basophils 1 Not Estab. % [facility] 1 Neutrophils Absolute 3.8 1.4 - 7.0 x10E3/uL [facility] 1 Lymphocytes Absolute 1.7 0.7 - 3.1 x10E3/uL [facility] 1 Monocytes Absolute 0.5 0.1 - 0.9 x10E3/uL [facility] 1 Eosinophils Absolute 0.1 0.0 - 0.4 x10E3/uL [facility] 1 Basophils Absolute 0.0 0.0 - 0.2 x10E3/uL [facility] 1 Immature Granulocytes Relative 1 Not Estab. % [facility] 1 Immature Grans (Abs) 0.1 0.0 - 0.1 x10E3/uL [facility] 1 Blood Venous blood specimen / Unknown 05/20/2025 7:06 AM EDT 05/20/2025 Narrative [facility] 1 - 05/20/2025 10:06 PM EDT Performed at: [address] [id number] Police Aide: Selene Bustamante MD, Phone: [phone] Erendira Amos BRICK KILN WORKER LAB BLOOD ORDERABLES Final R esult Performing Organization Address [facility] Co de Phone Number [facility] * Magnesium (05/20/2025 7:06 AM EDT) Pathologist [facility] Magnesium 2.2 1.6 - 2.3 mg/dL [facility] 1 Blood Venous blood specimen / Unknown 05/20/2025 7:06 AM EDT 05/20/2025 Narrative [facility] 1 - 05/21/2025 8:08 AM EDT Performed at: [address] [id number] Police Aide: Selene Bustamante MD, Phone: [phone] Erendira Amos BRICK KILN WORKER LAB BLOOD ORDERABLES Final R esult Performing Organization Address [facility] de Phone Number [facility] * Digoxin level (05/20/2025 7:06 AM EDT) Digoxin 0.5 0.5 - 0.9 ng/mL [facility] Comment: Concentrations above 2.0 ng/mL are generally considered toxic. Some overlap of toxic and non-toxic values have been reported. Detection Limit = 0.4 ng/mL Therapeutic range is derived from 2013 ACCF/AHA Guidelines for the Management of Heart Failure. Blood Venous blood specimen / Unknown 05/20/2025 7:06 AM EDT 05/20/2025 Narrative [facility] 1 - 05/21/2025 4:06 AM EDT Performed at: - [facility] [address] [id number] Police Aide: Selene Bustamante MD, Phone: [phone] us Erendira Amos BRICK KILN WORKER LAB BLOOD ORDERABLES Final R esult [facility] * (ABNORMAL) Comprehensive metabolic panel (05/20/2025 7:06 AM EDT) Glucose 143(H) 70 - 99 mg/dL [facility] 1 Blood Urea Nitrogen (BUN) 22 8 - 27 mg/dL [facility] 1 Creatinine 1.68(H) 0.76 - 1.27 mg/dL [facility] 1 eGFR 42(L) >59 mL/min/1. 73 [facility] 1 BUN/Creatinine Ratio 13 10 - 24 [facility] 1 Sodium 137 134 - 144 mmol/L [facility] 1 Potassium 4.4 3.5 - 5.2 mmol/L [facility] 1 Chloride 100 96 - 106 mmol/L [facility] 1 Carbon Dioxide 21 20 - 29 mmol/L [facility] 1 Calcium 9.5 8.6 - 10.2 mg/dL [facility] 1 Protein Total 6.5 6.0 - 8.5 g/dL [facility] 1 Albumin 4.1 3.8 - 4.8 g/dL [facility] 1 Globulin Total 2.4 1.5 - 4.5 g/dL [facility] 1 Bilirubin Total 0.5 0.0 - 1.2 mg/dL [facility] 1 Alkaline Phosphatase 65 44 - 121 IU/L [facility] 1 Comment: Effective May 27, 2025 Alkaline Phosphatase reference interval will be changing to: Age Male Female 0 - 5 days 47 - 127 47 - 127 6 - 10 days 29 - 242 29 - 242 11 - 20 days 109 - 357 109 - 357 21 - 30 days 94 - 494 94 - 494 1 - 2 months 149 - 539 149 - 539 3 - 6 months 131 - 452 131 - 452 7 - 11 months 117 - 401 117 - 401 12 months - 6 years 158 - 369 158 - 369 7 - 12 years 150 - 409 150 - 409 13 years 156 - 435 78 - 227 14 years 114 - 375 64 - 161 15 years 88 - 279 56 - 134 16 years 74 - 207 51 - 121 17 years 63 - 161 47 - 113 18 - 20 years 51 - 125 42 - 106 21 - 50 years 47 - 123 41 - 116 51 - 80 years 49 - 135 51 - 125 >80 years 48 - 129 48 - 129 Aspartate aminotransferase (AST) 16 0 - 40 IU/L [facility] 1 Alanine Aminotransferase (ALT) 10 0 - 44 IU/L [facility] 1 Blood Venous blood specimen / Unknown 05/20/2025 7:06 AM EDT 05/20/2025 Narrative [facility] 1 - 05/21/2025 4:06 AM EDT Performed at: 01 - [facility] [id number] Police Aide: Selene Bustamante MD, Phone: [phone] us Erendira Amos NP LAB BLOOD ORDERABLES Final R esult [facility] * ECG 12 lead (05/15/2025 8:13 PM EDT) Ventricular Rate ECG 63 BPM GEMUSE Atrial Rate 55 BPM GEMUSE QRS Duration 94 ms GEMUSE Q-T Interval 426 ms GEMUSE QTc 435 ms GEMUSE R [place] 68 degrees GEMUSE T [place] 106 degrees GEMUSE ECG Interpretation Atrial fibrillation Moderate voltage criteria for LVH, may be normal variant ST and T wave abnormality, consider lateral ischemia Abnormal ECG No previous ECGs available Confirmed by Rose Marie PERKINS JAMES ([id number]) on 05/16/2025 12:39:34 PM GEMUSE 05/15/2025 9:18 AM EDT 05/16/2025 12:39 PM EDT us Erendira Amos BRICK KILN WORKER ECG ORDERABLES Edited Resul t - Final GEMUSE from Last 3 Months Insurance MEDICARE [facility] Care Teams Design Tech Relationship Specialty Start Date End Date Viviana Adames PA [address] [place] [address] PCP - General 04/10/24
--- OUTSIDE RECORDS SUMMARY | 2025-05-27 18:53 | XMS_ITS | Encounter Summary ---
Author Organization [facility] Address [address] [place] [address] Care Team Providers Care Urogynecology Physician Name Role Phone Saúl Peguero MD Primary Care Provider Unavail able Rebecca Bosch MD Primary Care Provider UnavailNely Watson MD Primary Care Provide r Unavailable Thad Norton MD Unavailable [phone] Ivania Bearden DO Primary Care Provider Unavaila Thad Mckeon MD Unavailable [phone] Anurag Tam MD Unavailable Ruel Hunter DO Unavailable Unavailable [facility], Pcp Primary Care Provider Viviana Gray PA-C Primary Care Provider Luke junior [facility], Pcp Primary Care Provider Viviana Gray PA-C Unavailable Unavailable Viviana Adames PA-C Primary Care Provider Luke junior Encounter Details Date Type Department Care Team Description 06/30/2011 Import Customs Clearing Agent Report Medical Records [address] [place] [id number] [facility] Social History Tobacco Use Types Packs/Day Years [...] How often do you attend chur or yarsani services? Never 12/08/2021 Do you [...] on filedocumented in this encounter Care Teams Urogynecology Physician Relationship Specialty Start Date End Date Saúl Peguero MD PCP - General 06/14/06 07/21/15 Rebecca Bosch MD PCP - General Internal Medicine 07/22/15 12/11/20 Nely Betancourt MD PCP - General Internal Medicine 12/12/20 11/18/21 Ivania Bearden DO [address] [place] [address] PCP - General Internal Medicine 11/19/21 02/23/22 [facility], Pcp [address] [place] [address] PCP - General Internal Medicine 02/24/22 03/02/22 Viviana Adames PA-C [address] [place] [address] [place] [address] PCP - General Medical Physician Alcoholism Worker 03/03/22 04/26/22 [facility], Pcp [address] [place] [address] PCP - General Internal Medicine 04/27/22 04/09/24 Viviana Adames PA-C [address] [place] [address] [address] [place] [address] PCP - General Medical Physician Alcoholism Worker 04/10/24 Thad Norton MD [address] [place] [address] [address] [place] [address] Specialist Cardiovascular Disease 01/23/21 2 Thad Norton MD [address] [place] [address] [address] [place] [address] Aquatic Instructor Cardiovascular Disease 12/08/21 Anurag Tam MD [address] [place] [address] [address] [place] [address] Specialist Nephrology 12/08/21 Ruel Hunter DO [address] [facility] [address] [place] [address] Specialist Physiatry 12/08/21 Viviana Adames PA-C [address] [place] [address] [address] [place] [address] Specialist Medical Physician Alcoholism Worker 01/27/23 04/09/24 documented as of this encounter
--- OUTSIDE RECORDS SUMMARY | 2025-05-27 18:54 | XMS_ITS | Encounter Summary ---
Author Organization [facility] Address [address] [place] [address] Care Team Providers Care Snow Groomer Name Role Phone Thad Norton MD Unavailable [phone] Anurag Tam MD Unavailable Ruel Hunter DO Unavailable Unavailable Viviana Adames PA-C Primary Care Provider Luke junior [facility] Primary Care Provider Viviana Gray PA-C Unavailable Unavailable Viivana Adames PA-C Primary Care Provider Luke junior Reason for Visit * Reason Comments E-prescribe Rx Request Encounter Details Date Type Department Care Team Description 04/25/2022 Refill Adult Medicine - [address] [address] Radha Danielson PA-C [address] [place] [address] E-prescribe Rx Request Social History Tobacco Use Types Packs/Day Years [...] How often do you attend chur or mandaeism services? Never 12/08/2021 Do you belong to any clubs o r organizations such as orthodox groups, unions, fraternal or athletic groups, [...] encounter Miscellaneous Notes * Telephone Encounter - Sofia Gold - 04/27/2022 10:02 AM EDT Pt no longer come here documented in this encounter Plan of Treatment Not on file documented as of this encounter Visit Diagnoses Not on filedocumented in this encounter Care Teams Snow Groomer Relationship Specialty Start Date End Date Viviana Adames PA-C [address] [place] [address] [address] [place] [address] PCP - General Medical Physician Rn Orthopaedics 03/03/22 04/26/22 [facility], Pcp [address] [place] [address] [place] [address] PCP - General Internal Medicine 04/27/22 04/09/24 Viviana Adames PA-C [address] [place] [address] [place] [address] PCP - General Medical Physician Rn Orthopaedics 04/10/24 Thad Norton MD [address] [place] [address] [address] [place] [address] Hogshead Liner Cardiovascular Disease 12/08/21 Anurag Tam MD [address] [facility] [address] [place] [address] Specialist Nephrology 12/08/21 Ruel Hunter DO [address] [facility] [address] [place] [address] Specialist Physiatry 12/08/21 Viviana Adames PA-C [address] [facility] [address] [place] [address] Specialist Medical Physician Rn Orthopaedics 01/27/23 04/09/24 documented as of this encounter
--- OUTSIDE RECORDS SUMMARY | 2025-05-27 18:54 | XMS_ITS | Encounter Summary ---
Author Organization [facility] Address [address] [place] [address] Care Team Providers Care Health Insurance Agent Name Role Phone Saúl Peguero MD Primary Care Provider Unavail able Rebecca Bosch MD Primary Care Provider UnavailNely Watson MD Primary Care Provide Unavailable Thad Norton MD Unavailable [phone] Ivania Bearden DO Primary Care Provider Unavaila Thad Mckeon MD Unavailable [phone] Anurag Tam MD Unavailable Ruel Hunter DO Unavailable Unavailable [facility], Pcp Primary Care Provider Viviana Gray PA-C Primary Care Provider Luke junior [facility], Pcp Primary Care Provider Viviana Gray PA-C Unavailable Unavailable Viviana Adames PA-C Primary Care Provider Luke junior Encounter Details Date Type Department Care Team Description 01/26/2010 Hog Ribber Report Medical Records [address] [place] [address] Ellen Grove MD [address] [place] [address] Dr [place] [id number] Social History Tobacco Use Types Packs/Day Years [...] How often do you attend [facility] or restorationism services? Never 12/08/2021 Do you belong to any clubs o r organizations such as latter day groups, unions, fraternal or athletic groups, or [...] on filedocumented in this encounter Care Teams Health Insurance Agent Relationship Specialty Start Date End Date Saúl Peguero MD PCP - General 06/14/06 07/21/15 Rebecca Bosch MD PCP - General Internal Medicine 07/22/15 12/11/20 Nely Betancourt MD PCP - General Internal Medicine 12/12/20 11/18/21 Ivania Bearden DO [address] [facility] [address] [place] [address] PCP - General Internal Medicine 11/19/21 02/23/22 [facility], Pcp [address] [place] [address] [address] [place] [address] PCP - General Internal Medicine 02/24/22 03/02/22 Viviana Adames PA-C [address] [place] [address] [address] [place] [address] PCP - General Medical Physician Alternative Financing Specialist 03/03/22 04/26/22 [facility], Pcp [address] [place] [address] PCP - General Internal Medicine 04/27/22 04/09/24 Viviana Adames PA-C 2 [facility] [address] [place] [address] PCP - General Medical Physician Alternative Financing Specialist 04/10/24 Thad Norton MD 2 [facility] [address] [place] [address] Specialist Cardiovascular Disease 01/23/21 2 Thad Norton MD 2 [facility] [address] [place] [address] Signal Engineer Cardiovascular Disease 12/08/21 Anurag Tam MD [address] [place] [address] [place] [address] Specialist Nephrology 12/08/21 Ruel Hunter DO 2 [facility] [address] [place] [address] Specialist Physiatry 12/08/21 Viviana Adames PA-C [address] [place] [address] [place] [address] Specialist Medical Physician Alternative Financing Specialist 01/27/23 04/09/24 documented as of this encounter
--- OUTSIDE RECORDS SUMMARY | 2025-05-27 18:54 | XMS_ITS | Encounter Summary ---
Author Organization [facility] Address [address] [place] [address] Care Team Providers Care Ship Boat Or Barge Mate Name Role Phone Rebecca Bosch MD Primary Care Provider Nely Strong MD Primary Care Provide Thad Osorio MD Unavailable [phone] Ivania Bearden DO Primary Care Provider Thad Horvath MD Unavailable [phone] Anurag Tam MD Unavailable Ruel Hunter DO Unavailable [facility] Pcp Primary Care Provider Viviana Gray PA-C Primary Care Provider Luke junior [facility], Pcp Primary Care Provider Viviana Gray PA-C Unavailable Unavailable Viviana Adames PA-C Primary Care Provider Luke junior Encounter Details Date Type Department Care Team Description 08/13/2015 Hospital Medical Records [address] [place] [id number] Campbell Bentley MD Social History Tobacco Use Types Packs/Day Years Used Date Smoking Tobacco: Former Cigarettes 2 35 Q uit: 2015 Smokeless Tobacco: Never Quit: 08/07/2015 Alcohol Use [...] any clubs o r organizations such as christian groups, unions, fraternal or athletic groups, or [...] on filedocumented in this encounter Care Teams Ship Boat Or Barge Mate Relationship Specialty Start Date End Date Rebecca Bosch MD PCP - General Internal Medicine 07/22/15 12/11/20 Nely Betancourt MD PCP - General Internal Medicine 12/12/20 11/18/21 Ivania Bearden, [address] [place] [address] PCP - General Internal Medicine 11/19/21 02/23/22 [facility] Pcp [address] [place] [address] PCP - General Internal Medicine 02/24/22 03/02/22 Viviana Adames PA-C [address] [place] [address] PCP - General Medical Physician Precision Crop Manager 03/03/22 04/26/22 [facility], Pcp [address] [place] [address] PCP - General Internal Medicine 04/27/22 04/09/24 Viviana Adames PA-C [address] [place] [address] PCP - General Medical Physician Precision Crop Manager 04/10/24 Thad Norton MD 2 [facility] [address] [place] [address] Specialist Cardiovascular Disease 01/23/21 2 Thad Norton MD 2 [facility] [address] [place] [address] Sand Worker Cardiovascular Disease 12/08/21 Anurag Tam MD 2 [facility] [address] [place] [address] Specialist Nephrology 12/08/21 Ruel Hunter DO 2 [facility] [address] [place] [address] Specialist Physiatry 12/08/21 Viviana Adames PA-C [address] [address] [address] [place] [address] Specialist Medical Physician Precision Crop Manager 01/27/23 04/09/24 documented as of this encounter
--- OUTSIDE RECORDS SUMMARY | 2025-05-27 18:54 | XMS_ITS | Encounter Summary ---
Author Organization [facility] Address [address] [place] [address] Care Team Providers Care Supplier Development Manager Name Role Phone Saúl Peguero MD Primary Care Provider Unavail able Rebecca Bosch MD Primary Care Provider UnavailNely Watson MD Primary Care Provide r Unavailable Thad Norton MD Unavailable [phone] Ivania Bearden DO Primary Care Provider Unavaila Thad Mckeon MD Unavailable [phone] Anurag Tam MD Unavailable Ruel Hunter DO Unavailable Unavailable [facility], Pcp Primary Care Provider Viviana Gray PA-C Primary Care Provider Luke junior [facility], Pcp Primary Care Provider Viviana Gray PA-C Unavailable Unavailable Viviana Adames PA-C Primary Care Provider Luke junior Encounter Details Date Type Department Care Team Description 06/26/2015 Orders Only Medicine/Pediatrics - [address] [address] Viviana Adames PA-C Pure hypercholesterolemia (Primary Dx); Benign essential hypertension Social History Tobacco Use Types Packs/Day Years [...] How often do you attend chur or quaker services? Never 12/08/2021 Do you belong to any clubs o r organizations such as evangelical groups, unions, fraternal or athletic groups, or [...] on file documented as of this encounter Results * (ABNORMAL) LIPID PROFILE (06/30/2015 8:50 AM EDT) Cholesterol 146 0 - 200 mg/dL 06/30/2015 12:37 PM [facility] TRIGLYCERIDES 171(H) 0 - 150 mg/dL 06/30/2015 12:37 PM [facility] HDL CHOLESTEROL 47 >40 mg/dL 5 12:37 PM [facility] LDL CALCULATED 65 0 - 100 mg/dL 06/30/2015 12:37 PM [facility] TC-HDLC RATIO 3 0.0 - 4.4 mg/dL 06/30/2015 12:37 PM [facility] 06/30/2015 8:50 AM EDT 06/30/2015 8:50 AM EDT Viviana Adames PA-C LAB Performing Organization Address City/[facility]/ZIP Co de Phone Number [facility] [address] [facility] * (ABNORMAL) BASIC METABOLIC PANEL (06/30/2015 8:50 AM EDT) GLUCOSE 111(H) 70 - 100 mg/dL 06/30/2015 12:37 PM EDT [facility] Comment: Reference range applicable to fasting specimens only Based on recommendations from the ADA and AACE, the fasting glucose reference range has been changed to 70-100 mg/dL. This change is effective January 26, 2010 BUN 13 5 - 25 mg/dL 06/30/2015 12:[address] [facility] CREAT 1.8(H) 0.7 - 1.5 mg/dL 06/30/2015 12:37 PM T [facility] GFR 40(L) >60 06/30/2015 12:37 PM T [facility] Comment: If patient is -Kenyan, multiply result by 1.21 Chronic Kidney Disease: < 60 ml/min/1.73 square meters Kidney Failure: < 15 ml/min/1.73 square meters Sodium 139 133 - 145 mEq/L 06/30/2015 12:[address] [facility] Potassium 5.0 3.5 - 5.5 mEq/L 06/30/2015 12:[address] [facility] Chloride 102 96 - 108 mEq/L 06/30/2015 12:[address] [facility] CO2 21.3 21.0 - 32.0 mEq/L 06/30/2015 12:[address] [facility] CALCIUM 9.3 8.5 - 10.5 mg/dL 06/30/2015 12:37 PM T [facility] 06/30/2015 8:50 AM EDT 06/30/2015 8:50 AM EDT Viviana Adames PA-C LAB Performing Organization Address City/[facility]/ZIP Co de Phone Number [facility] [address] [place] [address] documented in this encounter Visit Diagnoses Diagnosis Pure hypercholesterolemia- Primary Benign essential hypertension Essential hypertension, benign documented in this encounter Care Teams Supplier Development Manager Relationship Specialty Start Date End Date Saúl Peguero MD PCP - General 06/14/06 07/21/15 Rebecca Bosch MD PCP - General Internal Medicine 07/22/15 12/11/20 Nely Betancourt MD PCP - General Internal Medicine 12/12/20 11/18/21 Ivania Bearden DO [address] [place] [address] DRIVE [address] [place] [address] PCP - General Internal Medicine 11/19/21 02/23/[address] [place] [address] PCP - General Internal Medicine 02/24/22 03/02/22 Viviana Adames PA-C [address] [place] [address] [place] [address] PCP - General Medical Physician Manager Fraud 03/03/22 04/26/[address] [place] [address] PCP - General Internal Medicine 04/27/22 04/09/24 Viviana Adames PA-C [address] [place] [address] [address] [place] [address] PCP - General Medical Physician Manager Fraud 04/10/24 Thad Norton MD [address] [place] [address] [place] [address] Specialist Cardiovascular Disease 01/23/21 2 Thad Norton MD [address] [place] [address] [address] [place] [address] Joint Runner Cardiovascular Disease 12/08/21 Anurag Tam MD [address] [place] [address] [address] [place] [address] Specialist Nephrology 12/08/21 Ruel Hunter DO [address] [place] [address] [address] [place] [address] Specialist Physiatry 12/08/21 Viviana Adames PA-C [address] [place] [address] [address] [place] [address] Specialist Medical Physician Manager Fraud 01/27/23 04/09/24 documented as of this encounter
--- OUTSIDE RECORDS SUMMARY | 2025-05-27 18:54 | XMS_ITS | Encounter Summary ---
Author Organization [facility] Address [address] [place] [address] Care Team Providers Care Sign Builder Name Role Phone Rebecca Bosch MD Primary Care Provider Nely Strong MD Primary Care Provide Thad Osorio MD Unavailable [phone] Ivania Bearden DO Primary Care Provider Thad Horvath MD Unavailable [phone] Anurag Tam MD Unavailable Ruel Hunter DO Unavailable Unavailable [facility], Pcp Primary Care Provider Viviana Gray PA-C Primary Care Provider Luke junior [facility], Pcp Primary Care Provider Viviana Gray PA-C Unavailable Unavailable Viviana Adames PA-C Primary Care Provider Luke junior Encounter Details Date Type Department Care Team Description 08/19/2015 Hospital Medical Records [address] [place] [address] Campbell Bentley MD Social History Tobacco Use [...] How often do you attend chur or hoahaoism services? Never 12/08/2021 Do you belong to any clubs o r organizations such as roman catholic groups, unions, fraternal or athletic groups, [...] on filedocumented in this encounter Care Teams Sign Builder Relationship Specialty Start Date End Date Rebecca Bosch MD PCP - General Internal Medicine 07/22/15 12/11/20 Nely Betancourt MD PCP - General Internal Medicine 12/12/20 11/18/21 Ivania Bearden, [address] [place] [address] PCP - General Internal Medicine 11/19/21 02/23/22 [facility], Pcp [address] [place] [address] PCP - General Internal Medicine 02/24/22 03/02/22 Viviana Adames PA-C [address] [place] [address] PCP - General Medical Physician Dairy Equipment Mechanic 03/03/22 04/26/22 [facility], Pcp [address] [place] [address] PCP - General Internal Medicine 04/27/22 04/09/24 Viviana Adames PA-C [address] [place] [address] PCP - General Medical Physician Dairy Equipment Mechanic 04/10/24 Thad Norton MD 2 [facility] [address] [place] [address] Specialist Cardiovascular Disease 01/23/21 2 Thad Norton MD 2 [facility] [address] [place] [address] Blanching Machine Operator Cardiovascular Disease 12/08/21 Anurag Tam MD 2 [facility] [address] [place] [address] Specialist Nephrology 12/08/21 Ruel Hunter DO 2 [facility] [address] [place] [address] Specialist Physiatry 12/08/21 Viviana Adames PA-C [address] [place] [address] [address] [place] [address] Specialist Medical Physician Dairy Equipment Mechanic 01/27/23 04/09/24 documented as of this encounter
--- OUTSIDE RECORDS SUMMARY | 2025-05-27 18:54 | XMS_ITS ---
Author Name [facility] Organization Unknown Care Team Organization Name Specialty Phone Email Start Date End Da te [facility] ZAIN BURGESS Primary Care 01/17/2023 04/30/2024 [facility] Termed, PROVIDER Primary Care 07/20/202204/12
--- OUTSIDE RECORDS SUMMARY | 2025-05-27 18:54 | XMS_ITS | Encounter Summary ---
Author Organization [facility] Address [address] [place] [address] Care Team Providers Care Market Development Manager Name Role Phone Rebecca Bosch MD Primary Care Provider Nely Strong MD Primary Care Provide Unavailable Thad Norton MD Unavailable [phone] Ivania Bearden DO Primary Care Provider Thad Horvath MD Unavailable [phone] Anurag Tam MD Unavailable Ruel Hunter DO Unavailable Unavailable [facility], Pcp Primary Care Provider Viviana Gray PA-C Primary Care Provider Luke junior [facility], Pcp Primary Care Provider Viviana Gray PA-C Unavailable Unavailable Viviana Adames PA-C Primary Care Provider Luke junior Encounter Details Date Type Department Care Team Description 01/02/2019 Audio Visual Project Manager Report Medical Records [address] [place] [address] Thad Norton MD [address] [place] [address] [address] [place] [address] Social History Tobacco Use Types Packs/Day Years [...] How often do you attend chur or druze services? Never 12/08/2021 Do you belong to any clubs o r organizations such as adventist groups, unions, fraternal or athletic groups, or [...] on filedocumented in this encounter Care Teams Market Development Manager Relationship Specialty Start Date End Date Rebecca Bosch MD PCP - General Internal Medicine 07/22/15 12/11/20 Nely Betancourt MD PCP - General Internal Medicine 12/12/20 11/18/21 Ivania Bearden DO [address] [facility] [address] [place] [address] PCP - General Internal Medicine 11/19/21 02/23/22 [facility], [address] [place] [address] PCP - General Internal Medicine 02/24/22 03/02/22 Viviana Adames PA-C [address] [place] [address] DR[address] [place] [address] PCP - General Medical Physician Telephone Solicitor 03/03/22 04/26/22 [facility], [address] [place] [address] PCP - General Internal Medicine 04/27/22 04/09/24 Viviana Adames PA-C [address] [place] [address] [address] [place] [address] PCP - General Medical Physician Telephone Solicitor 04/10/24 Thad Norton MD [address] [place] [address] [address] [place] [address] Specialist Cardiovascular Disease 01/23/21 2 Thad Norton MD [address] [place] [address] [address] [place] [address] Mobile Lounge Driver Cardiovascular Disease 12/08/21 Anurag Tam MD [address] [place] [address] [address] [place] [address] Specialist Nephrology 12/08/21 Ruel Hunter DO 2 [facility] [address] [place] [address] Specialist Physiatry 12/08/21 Viviana Adames PA-C [address] [place] [address] [address] [place] [address] Specialist Medical Physician Telephone Solicitor 01/27/23 04/09/24 documented as of this encounter
--- OUTSIDE RECORDS SUMMARY | 2025-05-27 18:54 | XMS_ITS | Encounter Summary ---
Author Organization [facility] Address [address] [place] [address] Care Team Providers Care Fine Jewelry Sales Associate Name Role Phone Rebecca Bosch MD Primary Care Provider Nely Strong MD Primary Care Provide Unavailable Thad Norton MD Unavailable [phone] Ivania Bearden DO Primary Care Provider Thad Horvath MD Unavailable [phone] Anurag Tam MD Unavailable Ruel Hunter DO Unavailable Unavailable [facility], Pcp Primary Care Provider Viviana Gray PA-C Primary Care Provider Luke junior [facility], Pcp Primary Care Provider Viviana Gray PA-C Unavailable Unavailable Viviana Adames PA-C Primary Care Provider Luke junior Encounter Details Date Type Department Care Team Description 01/02/2019 Cosmetic Counselor Report Medical Records [address] [place] [address] Thad Norton MD [address] [place] [address] [address] [place] [address] Social History Tobacco Use Types Packs/Day Years [...] on filedocumented in this encounter Care Teams Fine Jewelry Sales Associate Relationship Specialty Start Date End Date Rebecca Bosch MD PCP - General Internal Medicine 07/22/15 12/11/20 Nely Betancourt MD PCP - General Internal Medicine 12/12/20 11/18/21 Ivania Bearden DO [address] [facility] [address] [place] [address] PCP - General Internal Medicine 11/19/21 02/23/22 [facility], [address] [place] [address] PCP - General Internal Medicine 02/24/22 03/02/22 Viviana Adames PA-C [address] [place] [address] [address] [place] [address] PCP - General Medical Physician Supervisor Hard Candy 03/03/22 04/26/22 [facility], [address] [place] [address] PCP - General Internal Medicine 04/27/22 04/09/24 Viviana Adames PA-C [address] [place] [address] [address] [place] [address] PCP - General Medical Physician Supervisor Hard Candy 04/10/24 Thad Norton MD [address] [place] [address] [address] [place] [address] Specialist Cardiovascular Disease 01/23/21 2 Thad Norton MD [address] [place] [address] [address] [place] [address] Property Assistant Cardiovascular Disease 12/08/21 Anurag Tam MD [address] [place] [address] [address] [place] [address] Specialist Nephrology 12/08/21 Ruel Hunter DO 2 [facility] [address] [place] [address] Specialist Physiatry 12/08/21 Viviana Adames PA-C [address] [place] [address] [address] [place] [address] Specialist Medical Physician Supervisor Hard Candy 01/27/23 04/09/24 documented as of this encounter
--- OUTSIDE RECORDS SUMMARY | 2025-05-27 18:54 | XMS_ITS | Encounter Summary ---
Author Organization [facility] Address [address] [place] [address] Care Team Providers Care Wildlife Policy Professional Name Role Phone Thad Norton MD Unavailable [phone] Anurag Tam MD Unavailable Ruel Hunter DO Unavailable Unavailable [facility], Pcp Primary Care Provider Viviana Gray PA-C Unavailable Unavailable Viviana Adames PA-C Primary Care Provider Luke junior Encounter Details Date Type Department Care Team Description 01/17/2024 Orders Only Cardio [facility] [address] [place] [address] [address] [place] [address] Default, Provider Social History Tobacco Use Types Packs/Day [...] often do you attend chur ch or faith services? Never 12/08/2021 Do you belong to [...] place to sleep or slept in a snf (including now)? No 12/08/2021 Sex Assigned at Date Recorded Not on file documented as of this encounter Plan of Treatment Not on file documented as of this encounter Procedures Procedure Name Priority Date/Time Associated Diagnosis Comments OUTSIDE LAB Routine 11/10/2023 documented in this encounter Results * OUTSIDE LAB (11/10/2023) Provider Default LAB documented in this encounter Visit Diagnoses Not on filedocumented in this encounter Care Teams Wildlife Policy Professional Relationship Specialty Start Date End Date Community, Pcp 2 [facility] [address] [place] [address] PCP - General Internal Medicine 04/27/22 04/09/24 Viviana Adames PA-C [address] [place] [address] [place] [address] PCP - General Medical Physician Freelance Director 04/10/24 Thad Norton MD [address] [place] [address] [place] [address] Mounter Clarinets Cardiovascular Disease 12/08/21 Anurag Tam MD [address] [place] [address] [place] [address] Specialist Nephrology 12/08/21 Ruel Hunter DO 2 [facility] [address] [place] [address] Specialist Physiatry 12/08/21 Viviana Adames PA-C [address] [place] [address] [place] [address] Specialist Medical Physician Freelance Director 01/27/23 04/09/24 documented as of this encounter
--- OUTSIDE RECORDS SUMMARY | 2025-05-27 18:54 | XMS_ITS | Encounter Summary ---
Author Organization [facility] Address [address] [place] [address] Care Team Providers Care Boat Joiner Name Role Phone Rebecca Bosch MD Primary Care Provider Nely Strong MD Primary Care Provide Thad Osorio MD Unavailable [phone] Ivania Bearden DO Primary Care Provider Thad Horvath MD Unavailable [phone] Anurag Tam MD Unavailable Ruel Hunter DO Unavailable Unavailable [facility], Pcp Primary Care Provider Viviana Gray PA-C Primary Care Provider Luke junior [facility], Pcp Primary Care Provider Viviana Gray PA-C Unavailable Unavailable Viviana Adames PA-C Primary Care Provider Luke junior Encounter Details Date Type Department Care Team Description 11/12/2018 Pt. Non Urgent Medic al Question Medicine/Pediatrics - [address] [address] Viviana Adames PA-C Social History Tobacco Use [...] 12/08/2021 How often do you attend [facility] or roman catholic services? Never 12/08/2021 Do you belong to any clubs o r organizations such as voodoo groups, unions, fraternal or athletic groups, or [...] place to sleep or slept in a intermediate (including now)? No 12/08/2021 Sex Assigned at Date Recorded Not on file documented as of this encounter Progress Notes * Radha Richter L.P.N. - 11/13/2018 10:41 AM ESTFrom: Duong Ling To: Viviana Adames PA-C Sent: 11/12/2018 9:34 AM EST Subject: Warfarin, incorrect instructions! Note to Viviana, I am close to running out of warfarin, so my went to refill it when she went to work this morning. Just called and said it says too early to refill, not til November 29! It turns out that somehow, when the last prescription was sent, it gave instructions as once daily which is very wrong. My fault, I never look at those because I know how much to take, which is 2 a day, 3 on . It has been that for a very long time. [facility] should be sending a new request and said it wouldn't hurt to contact you here also. Thank you, Duong documented in this encounter Plan of Treatment Not on file documented as of this encounter Visit Diagnoses Not on filedocumented in this encounter Care Teams Boat Joiner Relationship Specialty Start Date End Date Rebecca Bosch MD PCP - General Internal Medicine 07/22/15 12/11/20 Nely Betancourt MD PCP - General Internal Medicine 12/12/20 11/18/21 Ivania Bearden DO [address] [place] [address] [address] [place] [address] PCP - General Internal Medicine 11/19/21 02/23/[address] [place] [address] PCP - General Internal Medicine 02/24/22 03/02/22 Viviana Adames PA-C [address] [place] [address] [place] [address] PCP - General Medical Physician Magnetic Resonance Technologist 03/03/22 04/26/[address] [place] [address] PCP - General Internal Medicine 04/27/22 04/09/24 Viviana Adames PA-C [address] [place] [address] [address] [place] [address] PCP - General Medical Physician Magnetic Resonance Technologist 04/10/24 Thad Norton MD [address] [place] [address] [address] [place] [address] Specialist Cardiovascular Disease 01/23/21 2 Thad Norton MD [address] [place] [address] [address] [place] [address] Hospital Laboratory Technician Cardiovascular Disease 12/08/21 Anurag Tam MD [address] [place] [address] [place] [address] Specialist Nephrology 12/08/21 Ruel Hunter DO [address] [place] [address] [address] [place] [address] Specialist Physiatry 12/08/21 Viviana Adames PA-C [address] [place] [address] [address] [place] [address] Specialist Medical Physician Magnetic Resonance Technologist 01/27/23 04/09/24 documented as of this encounter
--- OUTSIDE RECORDS SUMMARY | 2025-05-27 18:54 | XMS_ITS | Encounter Summary ---
Author Organization [facility] Address [address] [place] [address] Care Team Providers Care Criminal Intelligence Analyst Name Role Phone Saúl Peguero MD Primary Care Provider Unavail able Rebecca Bosch MD Primary Care Provider UnavailNely Watson MD Primary Care Provide r Unavailable Thad Norton MD Unavailable [phone] Ivania Bearden DO Primary Care Provider Unavaila Thad Mckeon MD Unavailable [phone] Anurag Tam MD Unavailable Ruel Hunter DO Unavailable Unavailable [facility], Pcp Primary Care Provider Viviana Gray PA-C Primary Care Provider Luke junior [facility], Pcp Primary Care Provider Viviana Gray PA-C Unavailable Unavailable Viviana Adames PA-C Primary Care Provider Luke junior Encounter Details Date Type Department Care Team Description 02/13/2010 Consumer Relations Specialist Report Medical Records [address] [place] [address] [place] [address] [place], [place] [id number] Social History Tobacco Use Types Packs/Day Years [...] week 12/08/2021 How often do you attend [facility] or buddhist services? Never 12/08/2021 Do you belong to any clubs o r organizations such as mormon groups, unions, fraternal or athletic groups, or [...] on filedocumented in this encounter Care Teams Criminal Intelligence Analyst Relationship Specialty Start Date End Date Saúl Peguero MD PCP - General 06/14/06 07/21/15 Rebecca Bosch MD PCP - General Internal Medicine 07/22/15 12/11/20 Nely Betancourt MD PCP - General Internal Medicine 12/12/20 11/18/21 Ivania Bearden DO [address] [facility] [address] [place] [address] PCP - General Internal Medicine 11/19/21 02/23/22 [facility], Pcp [address] [place] [address] DR[address] [place] [address] PCP - General Internal Medicine 02/24/22 03/02/22 Viviana Adames PA-C [address] [place] [address] [address] [place] [address] PCP - General Medical Physician Cell Room Operator 03/03/22 04/26/22 [facility], [address] [place] [address] PCP - General Internal Medicine 04/27/22 04/09/24 Viviana Adames PA-C [address] [place] [address] [address] [place] [address] PCP - General Medical Physician Cell Room Operator 04/10/24 Thad Norton MD [address] [place] [address] [address] [place] [address] Specialist Cardiovascular Disease 01/23/21 2 Thad Norton MD [address] [place] [address] [address] [place] [address] Sole Leather Cutting Machine Operator Cardiovascular Disease 12/08/21 Anurag Tam MD [address] [place] [address] [place] [address] Specialist Nephrology 12/08/21 Ruel Hunter DO 2 [facility] [address] [place] [address] Specialist Physiatry 12/08/21 Viviana Adames PA-C [address] [place] [address] [address] [place] [address] Specialist Medical Physician Cell Room Operator 01/27/23 04/09/24 documented as of this encounter
--- OUTSIDE RECORDS SUMMARY | 2025-05-27 18:54 | XMS_ITS | Encounter Summary ---
Author Organization [facility] Address [address] [place] [address] Care Team Providers Care Tanning Wheel Filler Name Role Phone Rebecca Bosch MD Primary Care Provider Nely Strong MD Primary Care Provide Thad Osorio MD Unavailable [phone] Ivania Bearden DO Primary Care Provider Thad Horvath MD Unavailable [phone] Anurag Tam MD Unavailable Ruel Hunter DO Unavailable Unavailable [facility], Pcp Primary Care Provider Viviana Gray PA-C Primary Care Provider Luke junior [facility], Pcp Primary Care Provider Viviana Gray PA-C Unavailable Unavailable Viviana Adames PA-C Primary Care Provider Luke junior Encounter Details Date Type Department Care Team Description 08/20/2015 Hospital Medical Records [address] [place] [address] [facility] [address] [place] [address] Social History Tobacco Use Types Packs/Day Years [...] How often do you attend [facility] or anabaptism services? Never 12/08/2021 Do you [...] on filedocumented in this encounter Care Teams Tanning Wheel Filler Relationship Specialty Start Date End Date Rebecca Bosch MD PCP - General Internal Medicine 07/22/15 12/11/20 Nely Betancourt MD PCP - General Internal Medicine 12/12/20 11/18/21 Ivania Bearden DO [address] [place] [address] PCP - General Internal Medicine 11/19/21 02/23/22 [facility], Pcp [address] [place] [address] PCP - General Internal Medicine 02/24/22 03/02/22 Viviana Adames PA-C [address] [place] [address] [place] [address] PCP - General Medical Physician Net Solutions Architect 03/03/22 04/26/22 [facility], Pcp [address] [place] [address] PCP - General Internal Medicine 04/27/22 04/09/24 Viviana Adames PA-C [address] [place] [address] [address] [place] [address] PCP - General Medical Physician Net Solutions Architect 04/10/24 Thad Norton MD [address] [place] [address] [address] [place] [address] Specialist Cardiovascular Disease 01/23/21 2 Thad Norton MD [address] [place] [address] [place] [address] Pet Technologist Cardiovascular Disease 12/08/21 Anurag Tam MD [address] [place] [address] [place] [address] Specialist Nephrology 12/08/21 Ruel Hunter DO 2 [facility] [address] [place] [address] Specialist Physiatry 12/08/21 Viviana Adames PA-C [address] [place] [address] [address] [place] [address] Specialist Medical Physician Net Solutions Architect 01/27/23 04/09/24 documented as of this encounter
--- OUTSIDE RECORDS SUMMARY | 2025-05-27 18:54 | XMS_ITS | Encounter Summary ---
Author Organization [facility] Address [address] [place] [address] Care Team Providers Care Provider Network Mgr Name Role Phone Thad Norton MD Unavailable [phone] Anurag Tam MD Unavailable Ruel Hunter DO Unavailable Unavailable [facility], [facility] Primary Care Provider Viviana Gray PA-C Unavailable Unavailable Viviana Adames PA-C Primary Care Provider Luke junior Encounter Details Date Type Department Care Team Description 09/02/2022 Bargain Table Clerk Report Medical Records [address] [place] [address] Viviana Adames PA-C Social History Tobacco Use [...] week 12/08/2021 How often do you attend [facility] or adventist services? Never 12/08/2021 Do you [...] on filedocumented in this encounter Care Teams Provider Network Mgr Relationship Specialty Start Date End Date Community, Pcp 2 [facility] [address] [place] [address] PCP - General Internal Medicine 04/27/22 04/09/24 Viviana Adames PA-C [address] [place] [address] [place] [address] PCP - General Medical Physician Lumber Sales Supervisor 04/10/24 Thad Norton MD [address] [place] [address] [place] [address] Community Health Director Cardiovascular Disease 12/08/21 Anurag Tam MD [address] [place] [address] [place] [address] Specialist Nephrology 12/08/21 Ruel Hunter DO 2 [facility] [address] [place] [address] Specialist Physiatry 12/08/21 Viviana Adames PA-C [address] [place] [address] [address] [place] [address] Specialist Medical Physician Lumber Sales Supervisor 01/27/23 04/09/24 documented as of this encounter
--- OUTSIDE RECORDS SUMMARY | 2025-05-27 18:54 | XMS_ITS | Encounter Summary ---
Author Organization [facility] Address [address] [place] [address] Care Team Providers Care Restoration Technician Name Role Phone Nely Betancourt MD Primary Care Provide r Thad Osorio MD Unavailable [phone] Ivania Bearden DO Primary Care Provider Unavaila Thad Mckeon MD Unavailable [phone] Anurag Tam MD Unavailable Ruel Hunter DO Unavailable Unavailable [facility], Pcp Primary Care Provider Viviana Gray PA-C Primary Care Provider Luke junior [facility], Pcp Primary Care Provider Viviana Gray PA-C Unavailable Unavailable Viviana Adames PA-C Primary Care Provider Luke junior Reason for Visit * Reason Comments E-prescribe Rx Request Encounter Details Date Type Department Care Team Description 08/23/2021 Refill Medicine/Pediatrics [address] [address] Nely Betancourt MD E-prescribe Rx Request Social History Tobacco Use [...] week 12/08/2021 How often do you attend [facility] or mandaeism services? Never 12/08/2021 Do you belong to any clubs o r organizations such as jain groups, unions, fraternal or athletic groups, or [...] encounter Miscellaneous Notes * Telephone Encounter - Jayde Patel - 08/25/2021 2:24 PM EST Patient would like script to be: E-PRESCRIBED/FAXED TO PHARMACY WHEN WAS THE PATIENT'S LAST APPOINTMENT IN ADULT MEDICINE? 06/16/2021 WHEN WAS THE LAST TIME THE PATIENT SAW THEIR PCP? Same as above Does patient have an upcoming appointment? No-unable to reach left [facility] to call for appointment due to refill request. Appt due 09/16/2021 (THE MEDICATION REQUESTED IS ON THE MED LIST ABOVE) All of the medications requested were on the CURRENT MEDS list Did you check the Pharmacy information above?: YES Patient wants: 30 -day supply Is this a mail order prescription request ? NO If the refill is from a FAXED refill request what is the RX # listed on the fax? N/A Patients current insurance carrier is: [place] / [place] / Product Type: MEDICARE [id number] documented in this encounter Plan of Treatment Not on file documented as of this encounter Visit Diagnoses Not on filedocumented in this encounter Care Teams Restoration Technician Relationship Specialty Start Date End Date Nely Betancourt MD PCP - General Internal Medicine 12/12/20 11/18/21 Ivania Bearden DO [address] [place] [address] [place] [address] PCP - General Internal Medicine 11/19/21 02/23/[address] [place] [address] PCP - General Internal Medicine 02/24/22 03/02/22 Viviana Adames PA-C [address] [place] [address] [place] [address] PCP - General Medical Physician Clerical Transcriber 03/03/22 04/26/[address] [place] [address] PCP - General Internal Medicine 04/27/22 04/09/24 Viviana Adames PA-C [address] [place] [address] [place] [address] PCP - General Medical Physician Clerical Transcriber 04/10/24 Thad Norton MD [address] [place] [address] [place] [address] Specialist Cardiovascular Disease 01/23/21 2 Thad Norton MD [address] [place] [address] [place] [address] Grants And Contracts Assistant Cardiovascular Disease 12/08/21 Anurag Tam MD [address] [place] [address] [place] [address] Specialist Nephrology 12/08/21 Ruel Hunter DO [address] [facility] [address] [place] [address] Specialist Physiatry 12/08/21 Viviana Adames PA-C [address] [facility] [address] [place] [address] Specialist Medical Physician Clerical Transcriber 01/27/23 04/09/24 documented as of this encounter
--- OUTSIDE RECORDS SUMMARY | 2025-05-27 18:54 | XMS_ITS | Encounter Summary ---
Author Organization [facility] Address [address] [place] [address] Care Team Providers Care Head Of Marketing Name Role Phone Nely Betancourt MD Primary Care Provide r Thad Osorio MD Unavailable [phone] Ivania Bearden DO Primary Care Provider Unavaila Thad Mckeon MD Unavailable [phone] Anurag Tma MD Unavailable Ruel Hunter DO Unavailable Unavailable [facility], Pcp Primary Care Provider Viviana Gray PA-C Primary Care Provider Luke junior [facility], Pcp Primary Care Provider Viviana Gray PA-C Unavailable Unavailable Viviana Adames PA-C Primary Care Provider Luke junior Reason for Visit * Reason Comments E-prescribe Rx Request Encounter Details Date Type Department Care Team Description 11/15/2021 Refill Medicine/Pediatrics [address] [address] Nely Betancourt MD E-prescribe Rx Request Social [...] week 12/08/2021 How often do you attend [facility] or uatsdin services? Never 12/08/2021 Do [...] place to sleep or slept in a group home (including now)? No 12/08/2021 Sex Assigned at Date Recorded Not on file documented as of this encounter Miscellaneous Notes * Telephone Encounter - Yasmeen Bryant - 11/19/2021 2:09 PM EST Refill on med list Last office visit : 06/16/21 Last time with PCP: no Next office visit : 12/08/21 documented in this encounter Plan of Treatment Not on file documented as of this encounter Visit Diagnoses Not on filedocumented in this encounter Care Teams Head Of Marketing Relationship Specialty Start Date End Date Nely Betancourt MD PCP - General Internal Medicine 12/12/20 11/18/21 Ivania Bearden DO [address] [place] [address] [address] [place] [address] PCP - General Internal Medicine 11/19/21 02/23/[address] [place] [address] PCP - General Internal Medicine 02/24/22 03/02/22 Viviana Adames PA-C [address] [facility] [address] [place] [address] PCP - General Medical Physician Research Physician 03/03/22 04/26/22 [facility], Pcp [address] [facility] [address] [place] [address] PCP - General Internal Medicine 04/27/22 04/09/24 Viviana Adames PA-C [address] [place] [address] [place] [address] PCP - General Medical Physician Research Physician 04/10/24 Thad Norton MD [address] [place] [address] [address] [place] [address] Specialist Cardiovascular Disease 01/23/21 2 Thad Norton MD [address] [place] [address] [place] [address] Tire Trucker Cardiovascular Disease 12/08/21 Anurag Tam MD [address] [place] [address] [place] [address] Specialist Nephrology 12/08/21 Ruel Hunter DO [address] [facility] [address] [place] [address] Specialist Physiatry 12/08/21 Viviana Adames PA-C [address] [place] [address] [place] [address] Specialist Medical Physician Research Physician 01/27/23 04/09/24 documented as of this encounter
--- OUTSIDE RECORDS SUMMARY | 2025-05-27 18:54 | XMS_ITS | Encounter Summary ---
Author Organization [facility] Address [address] [place] [address] Care Team Providers Care Turn Down Worker Name Role Phone Rebecca Bosch MD Primary Care Provider Nely Strong MD Primary Care Provide Unavailable Thad Norton MD Unavailable [phone] Ivania Bearden DO Primary Care Provider Thad Horvath MD Unavailable [phone] Anurag Tam MD Unavailable Ruel Hunter DO Unavailable Unavailable [facility], Pcp Primary Care Provider Viviana Gray PA-C Primary Care Provider Luke junior [facility], Pcp Primary Care Provider Viviana Gray PA-C Unavailable Unavailable Viviana Adames PA-C Primary Care Provider Luke junior Encounter Details Date Type Department Care Team Description 08/23/2015 Hospital Medical Records [address] [place] [address] Solomon Mendiola MD Social History Tobacco Use Types Packs/Day [...] How often do you attend [facility] or congregation services? Never 12/08/2021 Do you [...] on filedocumented in this encounter Care Teams Turn Down Worker Relationship Specialty Start Date End Date Rebecca Bosch MD PCP - General Internal Medicine 07/22/15 12/11/20 Nely Betancourt MD PCP - General Internal Medicine 12/12/20 11/18/21 Ivania Bearden, [address] [place] [address] PCP - General Internal Medicine 11/19/21 02/23/22 [facility], Pcp [address] [place] [address] PCP - General Internal Medicine 02/24/22 03/02/22 Viviana Adames PA-C [address] [place] [address] PCP - General Medical Physician Play Reader 03/03/22 04/26/22 [facility], Pcp [address] [place] [address] PCP - General Internal Medicine 04/27/22 04/09/24 Viviana Adames PA-C [address] [place] [address] PCP - General Medical Physician Play Reader 04/10/24 Thad Norton MD [address] [place] [address] [address] [place] [address] Specialist Cardiovascular Disease 01/23/21 2 Thad Norton MD [address] [place] [address] [address] [place] [address] Power Shovel Operator Helper Cardiovascular Disease 12/08/21 Anurag Tam MD [address] [place] [address] [place] [address] Specialist Nephrology 12/08/21 Ruel Hunter DO 2 [facility] [address] [place] [address] Specialist Physiatry 12/08/21 Viviana Adames PA-C [address] [place] [address] [address] [place] [address] Specialist Medical Physician Play Reader 01/27/23 04/09/24 documented as of this encounter
--- OUTSIDE RECORDS SUMMARY | 2025-05-27 18:54 | XMS_ITS | Encounter Summary ---
Author Organization [facility] Address [address] [place] [address] Care Team Providers Care Warp Placer Name Role Phone Rebecca Bosch MD Primary Care Provider Nely Strong MD Primary Care Provide Thad Osorio MD Unavailable [phone] Ivania Bearden DO Primary Care Provider Thad Horvath MD Unavailable [phone] Anurag Tam MD Unavailable Ruel Hunter DO Unavailable [facility], Pcp Primary Care Provider Viviana Gray PA-C Primary Care Provider Luke junior [facility], Pcp Primary Care Provider Viviana Gray PA-C Unavailable Unavailable Viviana Adames PA-C Primary Care Provider Luke junior Encounter Details Date Type Department Care Team Description 08/14/2015 Pt. Non Urgent Medic al Question Physiatry - [address] [id number] Ruel Hunter DO Social History Tobacco Use [...] any clubs o r organizations such as scientologist groups, unions, fraternal or athletic groups, or [...] as of this encounter Progress Notes * Amaris Urias L.P.N. - 08/14/2015 7:50 AM ESTFrom: Duong Lnig To: Ruel Hunter DO Sent: 08/14/2015 7:46 AM EST Subject: Re: Appt I do not want to aaron someone of a needed visit by cancelling last minute, so if someone else is waiting please give the time slot to them. I am still having issues from yesterday's procedure namely the need to urinate comes on suddenly and when it does, I have no control. And it hurts to pee like you cannot believe. I really don't want to have to get an adult diaper or something but if the other issue clears up, I just might do that. That issue is a severe pain that just started this morning. Leif had pain for weeks in the left side of groin area that comes and goes. This one is about 6 inches higher and I only get relief by lying down. I think it must be from the procedure but we will be calling Dr. Sonn if it is not gone tomorrow. The main reason I am desperate to get in to see Dr. Hunter is that I sincerely need his help and amuncertain I did a good job explaining that in the letter. So if I think I can risk the trip, I willcall early this afternoon to see if the slot is still open. But as I said, if someone else needs it. let them have it because you can't count on me at this hour to be well enough to travel. And I will not leave you hanging like that. Thanks so much for all your help; I really appreciate it. documented in this encounter Plan of Treatment Not on file documented as of this encounter Visit Diagnoses Not on filedocumented in this encounter Care Teams Warp Placer Relationship Specialty Start Date End Date Rebecca Bosch MD PCP - General Internal Medicine 07/22/15 12/11/20 Nely Betancourt MD PCP - General Internal Medicine 12/12/20 11/18/21 Ivania Bearden DO [address] [place] [address] [address] [place] [address] PCP - General Internal Medicine 11/19/21 02/23/[address] [place] [address] PCP - General Internal Medicine 02/24/22 03/02/22 Viviana Adames PA-C [address] [place] [address] [place] [address] PCP - General Medical Physician Outdoor Illuminating Engineer 03/03/22 04/26/[address] [place] [address] PCP - General Internal Medicine 04/27/22 04/09/24 Viviana Adames PA-C [address] [place] [address] [place] [address] PCP - General Medical Physician Outdoor Illuminating Engineer 04/10/24 Thad Norton MD [address] [place] [address] [place] [address] Specialist Cardiovascular Disease 01/23/21 2 Thad Norton MD [address] [place] [address] [place] [address] Trace Evidence Technician Cardiovascular Disease 12/08/21 Anurag Tam MD [address] [facility] [facility] [address] [place] [address] Specialist Nephrology 12/08/21 Ruel Hunter DO [address] [facility] [address] [facility] [address] [place] [address] Specialist Physiatry 12/08/21 Viviana Adames PA-C [address] [facility] [facility] [address] [place] [address] Specialist Medical Physician Outdoor Illuminating Engineer 01/27/23 04/09/24 documented as of this encounter
--- OUTSIDE RECORDS SUMMARY | 2025-05-27 18:54 | XMS_ITS | Encounter Summary ---
Author Organization [facility] Address [address] [place] [address] Care Team Providers Care Barking Machine Feeder Name Role Phone Thad Norton MD Unavailable [phone] Anurag Tam MD Unavailable Ruel Hunter DO Unavailable [facility], Pcp Primary Care Provider Viviana Gray PA-C Primary Care Provider Luke junior [facility], Pcp Primary Care Provider Viviana Gray PA-C Unavailable Unavailable Viviana Adames PA-C Primary Care Provider Luke junior Reason for Visit * Reason Comments E-prescribe Rx Request Encounter Details Date Type Department Care Team Description 02/26/2022 Refill Medicine/Pediatrics [address] [phone] Ivania Bearden DO E-prescribe Rx Request Social History Tobacco Use [...] How often do you attend chur or mormon services? Never 12/08/2021 Do you belong to any clubs o r organizations such as confucianism groups, unions, fraternal or athletic groups, or [...] encounter Miscellaneous Notes * Telephone Encounter - Lee Polanco - 03/01/2022 10:02 AM EDT Outside PCP. Please refuse documented in this encounter Plan of Treatment Not on file documented as of this encounter Visit Diagnoses Not on filedocumented in this encounter Care Teams Barking Machine Feeder Relationship Specialty Start Date End Date Community, Pcp [address] [place] [address] [address] [place] [address] PCP - General Internal Medicine 02/24/22 03/02/22 Viviana Adames PA-C [address] [place] [address] [address] [place] [address] PCP - General Medical Physician Room Cleaner 03/03/22 04/26/22 Community, Pcp [address] [place] [address] [address] [place] [address] PCP - General Internal Medicine 04/27/22 04/09/24 Viviana Adames PA-C [address] [place] [address] [address] [place] [address] PCP - General Medical Physician Room Cleaner 04/10/24 Thad Norton MD [address] [place] [address] [address] [place] [address] Manager Architecture Cardiovascular Disease 12/08/21 Anurag Tam MD [address] [place] [address] Specialist Nephrology 12/08/21 Ruel Hunter DO [address] [place] [address] Specialist Physiatry 12/08/21 Viviana Adames PA-C [address] [place] [address] [address] [place] [address] Specialist Medical Physician Room Cleaner 01/27/23 04/09/24 documented as of this encounter
--- OUTSIDE RECORDS SUMMARY | 2025-05-27 18:54 | XMS_ITS | Encounter Summary ---
Author Organization [facility] Address [address] [place] [address] Care Team Providers Care Hub Associate Name Role Phone Nely Betancourt MD Primary Care Provide r Thad Osorio MD Unavailable [phone] Ivania Bearden DO Primary Care Provider Unavaila Thad Mckeon MD Unavailable [phone] Anurag Tam MD Unavailable Ruel Hunter DO Unavailable Unavailable Community, Pcp Primary Care Provider Viviana Gray PA-C Primary Care Provider Luke junior [facility], Pcp Primary Care Provider Viviana Gray PA-C Unavailable Unavailable Viviana Adames PA-C Primary Care Provider Luke junior Encounter Details Date Type Department Care Team Description 06/08/2021 Telephone Medicine/Pediatrics - [address] [phone] Radha Danielson PA-C [address] [place] [address] Social History Tobacco Use Types Packs/Day Years [...] any clubs o r organizations such as baptism groups, unions, fraternal or athletic groups, or [...] have Coronavirus / COVID-19? No / Unsure 06/08/2021 10:44 AM EDT documented as of this encounter Miscellaneous Notes * Telephone Encounter - Jil Medel L.P.N. - 06/08/2021 11:30 AM EDT Noted thanks * Telephone Encounter - Radha Danielson PA-C - 06/08/2021 11:02 AM EDT Fyi patient started on keflex today for cellulitis- wanted to make you aware in regards to his coumadin. documented in this encounter Plan of Treatment Not on file documented as of this encounter Visit Diagnoses Not on filedocumented in this encounter Care Teams Hub Associate Relationship Specialty Start Date End Date Nely Betancourt MD PCP - General Internal Medicine 12/12/20 11/18/21 Ivania Bearden DO [address] [place] [address] [address] [place] [address] PCP - General Internal Medicine 11/19/21 02/23/[address] [place] [address] PCP - General Internal Medicine 02/24/22 03/02/22 Viviana Adames PA-C [address] [place] [address] [place] [address] PCP - General Medical Physician Bit Sander 03/03/22 04/26/[address] [place] [address] PCP - General Internal Medicine 04/27/22 04/09/24 Viviana Adames PA-C [address] [place] [address] [place] [address] PCP - General Medical Physician Bit Sander 04/10/24 Thad Norton MD [address] [place] [address] [address] [place] [address] Specialist Cardiovascular Disease 01/23/21 2 Thad Norton MD [address] [place] [address] [address] [place] [address] Cannon Crewmember Cardiovascular Disease 12/08/21 Anurag Tam MD [address] [place] [address] [address] [place] [address] Specialist Nephrology 12/08/21 Ruel Hunter DO [address] [place] [address] [address] [place] [address] Specialist Physiatry 12/08/21 Viviana Adames PA-C [address] [place] [address] [place] [address] Specialist Medical Physician Bit Sander 01/27/23 04/09/24 documented as of this encounter
--- OUTSIDE RECORDS SUMMARY | 2025-05-27 18:54 | XMS_ITS | Encounter Summary ---
Author Organization [facility] Address [address] [place] [address] Care Team Providers Care Dress Cutter Name Role Phone Rebecca Bosch MD Primary Care Provider Nely Strong MD Primary Care Provide Thad Osorio MD Unavailable [phone] Ivania Bearden DO Primary Care Provider Thad Horvath MD Unavailable [phone] Anurag Tam MD Unavailable Ruel Hunter DO Unavailable [facility], Pcp Primary Care Provider Viivana Gray PA-C Primary Care Provider Luke junior [facility], Pcp Primary Care Provider Viviana Gray PA-C Unavailable Unavailable Viviana Adames PA-C Primary Care Provider Luke junior Encounter Details Date Type Department Care Team Description 08/28/2015 Pt. Non Urgent Medic al Question Physiatry - [address] [phone] Ruel Hunter DO Social History Tobacco Use [...] How often do you attend chur or jew services? Never 12/08/2021 Do you belong to any clubs o r organizations such as mu-ism groups, unions, fraternal or athletic groups, or [...] Progress Notes * Deanne Berg M.A. - 08/28/2015 11:16 AM ESTFrom: Duong Ling To: Ruel Hunter DO Sent: 08/28/2015 11:13 AM EST Subject: Operation To Amaris Card, and anyone else who helped me; Just letting you know my operation took place Aug.20 and I have survived so far. I am now home recuperating but without the help of this office, I would still be hospitalized. Not sure what will happen now but from the bottom of my heart, thank you all. Duong documented in this encounter Plan of Treatment Not on file documented as of this encounter Visit Diagnoses Not on filedocumented in this encounter Care Teams Dress Cutter Relationship Specialty Start Date End Date Rebecca Bosch MD PCP - General Internal Medicine 07/22/15 12/11/20 Nely Betancourt MD PCP - General Internal Medicine 12/12/20 11/18/21 Ivania Bearden DO [address] [facility] [address] [place] [address] PCP - General Internal Medicine 11/19/21 02/23/22 [facility], Pcp [address] [place] [address] [place] [address] PCP - General Internal Medicine 02/24/22 03/02/22 Viviana Adames PA-C [address] [place] [address] [address] [place] [address] PCP - General Medical Physician Veneer Production Machine Operator 03/03/22 04/26/22 [facility] [address] [facility] [facility] [address] [place] [address] PCP - General Internal Medicine 04/27/22 04/09/24 Viviana Adames PA-C [address] [place] [address] [address] [place] [address] PCP - General Medical Physician Veneer Production Machine Operator 04/10/24 Thad Norton MD [address] [place] [address] [address] [place] [address] Specialist Cardiovascular Disease 01/23/21 2 Thad Norton MD [address] [place] [address] [address] [place] [address] Stock Unloader Cardiovascular Disease 12/08/21 Anurag Tam MD [address] [place] [address] [address] [place] [address] Specialist Nephrology 12/08/21 Ruel Hunter DO [address] [facility] [address] [place] [address] Specialist Physiatry 12/08/21 Viviana Adames PA-C [address] [place] [address] [address] [place] [address] Specialist Medical Physician Veneer Production Machine Operator 01/27/23 04/09/24 documented as of this encounter
--- OUTSIDE RECORDS SUMMARY | 2025-05-27 18:54 | XMS_ITS | Encounter Summary ---
Author Organization [facility] Address [address] [place] [address] Care Team Providers Care Preforming Machine Operator Name Role Phone Rebecca Bosch MD Primary Care Provider Nely Strong MD Primary Care Provide Thad Osorio MD Unavailable [phone] Ivania Bearden DO Primary Care Provider Thad Horvath MD Unavailable [phone] Anurag Tam MD Unavailable Ruel Hunter DO Unavailable Unavailable [facility], Pcp Primary Care Provider Viviana Gray PA-C Primary Care Provider Luke junior [facility], Pcp Primary Care Provider Viviana Gray PA-C Unavailable Unavailable Viviana Adames PA-C Primary Care Provider Luke junior Encounter Details Date Type Department Care Team Description 08/28/2015 Pt. Non Urgent Medic al Question Medicine/Pediatrics - [address] [phone] Viviana Adames PA-C Social History Tobacco Use [...] week 12/08/2021 How often do you attend [facility] or [facility] services? Never 12/08/2021 Do you [...] Progress Notes * Michelle Ma M.A. - 08/28/2015 3:54 PM ESTFrom: Duong Ling To: Viviana Adames PA-C Sent: 08/28/2015 3:47 PM EST Subject: Appointment Thank you for your response. It did spawn another question. I tried to make an appointment with Dr. Clarke and that told me 2 things. 1st, she has no openings until October 10 and 2nd, apparently there are no members on her team. However you are a selection Ican make for an appointment (and you do have a team!). Does this mean I can make one with you to take care of this? I am really hoping so but otherwise, I am very confused. Btw, Dr. Bentley did say the operation went well, but we will find out more on Tuesday. Thank you, Duong documented in this encounter Plan of Treatment Not on file documented as of this encounter Visit Diagnoses Not on filedocumented in this encounter Care Teams Preforming Machine Operator Relationship Specialty Start Date End Date Rebecca Bosch MD PCP - General Internal Medicine 07/22/15 12/11/20 Nely Betancourt MD PCP - General Internal Medicine 12/12/20 11/18/21 Ivania Bearden DO [address] [place] [address] [address] [place] [address] PCP - General Internal Medicine 11/19/21 02/23/[address] [place] [address] PCP - General Internal Medicine 02/24/22 03/02/22 Viviana Adames PA-C [address] [place] [address] [place] [address] PCP - General Medical Physician Pit Steward 03/03/22 04/26/[address] [place] [address] PCP - General Internal Medicine 04/27/22 04/09/24 Viviana Adames PA-C [address] [place] [address] [place] [address] PCP - General Medical Physician Pit Steward 04/10/24 Thad Norton MD [address] [place] [address] [address] [place] [address] Specialist Cardiovascular Disease 01/23/21 2 Thad Norton MD [address] [place] [address] [address] [place] [address] Physical Fitness Teacher Cardiovascular Disease 12/08/21 Anurag Tam MD [address] [place] [address] [address] [place] [address] Specialist Nephrology 12/08/21 Ruel Hunter DO [address] [place] [address] [address] [place] [address] Specialist Physiatry 12/08/21 Viviana Adames PA-C [address] [place] [address] [place] [address] Specialist Medical Physician Pit Steward 01/27/23 04/09/24 documented as of this encounter
--- OUTSIDE RECORDS SUMMARY | 2025-05-27 18:54 | XMS_ITS | Encounter Summary ---
Author Organization [facility] Address [address] [place] [address] Care Team Providers Care Line Director Name Role Phone Rebecca Bosch MD Primary Care Provider Nely Strong MD Primary Care Provide Thad Osorio MD Unavailable [phone] Ivania Bearden DO Primary Care Provider Thad Horvath MD Unavailable [phone] Anurag Tam MD Unavailable Ruel Hunter DO Unavailable Unavailable [facility], Pcp Primary Care Provider Viviana Gray PA-C Primary Care Provider Luke junior [facility], Pcp Primary Care Provider Viviana Gray PA-C Unavailable Unavailable Viviana Adames PA-C Primary Care Provider Luke junior Encounter Details Date Type Department Care Team Description 03/09/2018 [facility] Medical Records [address] [place] [address] Abstract, Provider Social History Tobacco Use Types [...] How often do you attend chur or bahai services? Never 12/08/2021 Do you belong to [...] filedocumented in this encounter Care Teams Line Director Relationship Specialty Start Date End Date Rebecca Bosch MD PCP - General Internal Medicine 07/22/15 12/11/20 Nely Betancourt MD PCP - General Internal Medicine 12/12/20 11/18/21 Ivania Bearden, [address] [place] [address] PCP - General Internal Medicine 11/19/21 02/23/22 [facility] Pcp [address] [place] [address] PCP - General Internal Medicine 02/24/22 03/02/22 Viviana Adames PA-C [address] [place] [address] [place] [address] PCP - General Medical Physician Tar Worker 03/03/22 04/26/22 [facility], Pcp [address] [place] [address] PCP - General Internal Medicine 04/27/22 04/09/24 Viviana Adames PA-C [address] [place] [address] PCP - General Medical Physician Tar Worker 04/10/24 Thad Norton MD [address] [facility] [address] [place] [address] Specialist Cardiovascular Disease 01/23/21 2 Thad Norton MD [address] [facility] [address] [place] [address] Donor Support Technician Cardiovascular Disease 12/08/21 Anurag Tam MD [address] [facility] [address] [place] [address] Specialist Nephrology 12/08/21 Ruel Hunter DO [address] [facility] [address] [place] [address] Specialist Physiatry 12/08/21 Viviana Adames PA-C [address] [place] [address] [address] [place] [address] Specialist Medical Physician Tar Worker 01/27/23 04/09/24 documented as of this encounter
--- OUTSIDE RECORDS SUMMARY | 2025-05-27 18:54 | XMS_ITS | Encounter Summary ---
Author Organization [facility] Address [address] [place] [address] Care Team Providers Care Combo Welder Name Role Phone Rebecca Bosch MD Primary Care Provider Nely Strong MD Primary Care Provide Thad Osorio MD Unavailable [phone] Ivania Bearden DO Primary Care Provider Thad Horvath MD Unavailable [phone] Anurag Tam MD Unavailable Ruel Hunter DO Unavailable Unavailable [facility], Pcp Primary Care Provider Viviana Gray PA-C Primary Care Provider Luke junior [facility], Pcp Primary Care Provider Viviana Gray PA-C Unavailable Unavailable Viviana Adames PA-C Primary Care Provider Luke junior Encounter Details Date Type Department Care Team Description 09/02/2015 Lean Manager Report Medical Records [address] [place] [phone] Campbell Bentley MD Social History Tobacco Use [...] any clubs o r organizations such as restoration groups, unions, fraGazelle or athletic groups, or school groups? No [...] on filedocumented in this encounter Care Teams Combo Welder Relationship Specialty Start Date End Date Rebecca Bosch MD PCP - General Internal Medicine 07/22/15 12/11/20 Nely Betancourt MD PCP - General Internal Medicine 12/12/20 11/18/21 Ivania Bearden, [address] [place] [address] PCP - General Internal Medicine 11/19/21 02/23/22 [facility] Pcp [address] [place] [address] PCP - General Internal Medicine 02/24/22 03/02/22 Viviana Adames PA-C [address] [place] [address] [place] [address] PCP - General Medical Physician Manager Validation 03/03/22 04/26/22 [facility], Pcp [address] [place] [address] PCP - General Internal Medicine 04/27/22 04/09/24 Viviana Adames PA-C [address] [place] [address] PCP - General Medical Physician Manager Validation 04/10/24 Thad Norton MD [address] [facility] [address] [place] [address] Specialist Cardiovascular Disease 01/23/21 2 Thad Norton MD [address] [facility] [address] [place] [address] Animal Nutrition Teacher Cardiovascular Disease 12/08/21 Anurag Tam MD [address] [facility] [address] [place] [address] Specialist Nephrology 12/08/21 Ruel Hunter DO [address] [facility] [address] [place] [address] Specialist Physiatry 12/08/21 Viviana Adames PA-C [address] [place] [address] [address] [place] [address] Specialist Medical Physician Manager Validation 01/27/23 04/09/24 documented as of this encounter
--- OUTSIDE RECORDS SUMMARY | 2025-05-27 18:54 | XMS_ITS | Encounter Summary ---
Author Organization [facility] Address [address] [place] [address] Care Team Providers Care Tent Assembler Name Role Phone Nely Betancourt MD Primary Care Provide r Thad Osorio MD Unavailable [phone] Ivania Bearden DO Primary Care Provider Unavaila Thad Mckeon MD Unavailable [phone] Anurag Tam MD Unavailable Ruel Hunter DO Unavailable Unavailable [facility], Pcp Primary Care Provider Viviana Gray PA-C Primary Care Provider Luke junior [facility], Pcp Primary Care Provider Viviana Gray PA-C Unavailable Unavailable Viviana Adames PA-C Primary Care Provider Luke junior Reason for Visit * Reason Comments E-prescribe Rx Request Encounter Details Date Type Department Care Team Description 05/21/2021 Refill Medicine/Pediatrics - [address] [phone] Isis Meek MD E-prescribe Rx Request Social History Tobacco [...] How often do you attend [facility] or latter-day services? Never 12/08/2021 Do you belong to any clubs o r organizations such as spiritism groups, unions, fraternal or athletic groups, or [...] have Coronavirus / COVID-19? No / Unsure 05/22/2021 8:47 AM EDT documented as of this encounter Miscellaneous Notes * Telephone Encounter - Magaly Bearden - 05/25/2021 8:12 AM EDT Gato chappell sent * Telephone Encounter - Brionna Gonzalez M.A. - 05/22/2021 10:01 AM EDT Needs appt . Labs done today . * Telephone Encounter - Sienna Rojas - 05/22/2021 8:40 AM EDT Patient would like script to be: E-PRESCRIBED/FAXED TO PHARMACY WHEN WAS THE PATIENT'S LAST APPOINTMENT IN ADULT MEDICINE? 09/24/20 WHEN WAS THE LAST TIME THE PATIENT SAW THEIR PCP? Never Does patient have an upcoming appointment? No (THE MEDICATION REQUESTED IS ON THE MED LIST ABOVE) All of the medications requested were on the CURRENT MEDS list Did you check the Pharmacy information above?: YES Patient wants: 90 -day supply Is this a mail order prescription request ? NO If the refill is from a FAXED refill request what is the RX # listed on the fax? N/A Patients current insurance carrier is: Payor: MEDIC[employer] / Plan[place] / Product Type: MEDICARE [id number] documented in this encounter Plan of Treatment Not on file documented as of this encounter Visit Diagnoses Not on filedocumented in this encounter Care Teams Tent Assembler Relationship Specialty Start Date End Date Nely Betancourt MD PCP - General Internal Medicine 12/12/20 11/18/21 Ivania Bearden DO [address] [facility] [address] [place] [address] PCP - General Internal Medicine 11/19/21 02/23/22 [facility], Pcp [address] [place] [address] [place] [address] PCP - General Internal Medicine 02/24/22 03/02/22 Viviana Adames PA-C [address] [place] [address] [place] [address] PCP - General Medical Physician Lead Infrastructure Architect 03/03/22 04/26/22 [facility], [address] [place] [address] PCP - General Internal Medicine 04/27/22 04/09/24 Viviana Adames PA-C [address] [place] [address] [address] [place] [address] PCP - General Medical Physician Lead Infrastructure Architect 04/10/24 Thad Norton MD [address] [facility] [address] [place] [address] Specialist Cardiovascular Disease 01/23/21 2 Thad Norton MD [address] [facility] [address] [place] [address] Manager Data Warehouse Cardiovascular Disease 12/08/21 Anurag Tam MD [address] [facility] [address] [place] [address] Specialist Nephrology 12/08/21 Ruel Hunter DO [address] [facility] [address] [place] [address] Specialist Physiatry 12/08/21 Viviana Adames PA-C [address] [place] [address] [address] [place] [address] Specialist Medical Physician Lead Infrastructure Architect 01/27/23 04/09/24 documented as of this encounter
--- OUTSIDE RECORDS SUMMARY | 2025-05-27 18:54 | XMS_ITS | Encounter Summary ---
Author Organization [facility] Address [address] [place] [address] Care Team Providers Care Nylon Machine Operator Name Role Phone Rebecca Bosch MD Primary Care Provider Nely Strong MD Primary Care Provide Thad Osorio MD Unavailable [phone] Ivania Bearden DO Primary Care Provider Thad Horvath MD Unavailable [phone] Anurag Tam MD Unavailable Ruel Hunter DO Unavailable Unavailable [facility], Pcp Primary Care Provider Viviana Gray PA-C Primary Care Provider Luke junior [facility], Pcp Primary Care Provider Viviana Gray PA-C Unavailable Unavailable Viviana Adames PA-C Primary Care Provider Luke junior Encounter Details Date Type Department Care Team Description 11/12/2018 Pt. Non Urgent Medic al Question Medicine/Pediatrics - [address] [id number] Viviana Adames PA-C Social History Tobacco Use [...] often do you attend [facility] or nondenominational services? Never 12/08/2021 Do you belong to [...] Notes * Radha Richter L.P.N. - 11/13/2018 10:40 AM ESTFrom: Duong Ling To: Viviana Adames PA-C Sent: 11/12/2018 10:00 AM EST Subject: p.s. I just happened to think, this mistake could go back a little further. Late last year a prescription was written by someone named Case. It was for 90 pills, half the regular 90 day supply. I thoughtthat weird but knew in the past he would write for 30 days instead of 90 when called upon. That is when I should have checked the instructions; to write for 45 days made no sense. I am not even sure it was for that medication and no longer have the bottle but it makes sense and explains why Viviana might have written it that way. Anyway, thank you for your attention to this matter and rest assured, I will be checking instructions from now on! Duong documented in this encounter Plan of Treatment Not on file documented as of this encounter Visit Diagnoses Not on filedocumented in this encounter Care Teams Nylon Machine Operator Relationship Specialty Start Date End Date Rebecca Bosch MD PCP - General Internal Medicine 07/22/15 12/11/20 Nely Betancourt MD PCP - General Internal Medicine 12/12/20 11/18/21 Ivania Bearden DO [address] [place] [address] [address] [place] [id number] PCP - General Internal Medicine 11/19/21 02/23/[address] [place] [id number] PCP - General Internal Medicine 02/24/22 03/02/22 Viviana Adames PA-C [address] [place] [address] [place] [id number] PCP - General Medical Physician Tank Truck Milk Receiver 03/03/22 04/26/[address] [place] [id number] PCP - General Internal Medicine 04/27/22 04/09/24 Viviana Adames PA-C [address] [place] [address] [address] [place] [address] PCP - General Medical Physician Tank Truck Milk Receiver 04/10/24 Thad Norton MD [address] [place] [address] [place] [address] Specialist Cardiovascular Disease 01/23/21 2 Thad Norton MD [address] [place] [address] [address] [place] [address] Bulk Loader Cardiovascular Disease 12/08/21 Anurag Tam MD [address] [place] [address] [address] [place] [address] Specialist Nephrology 12/08/21 Ruel Hunter DO [address] [place] [address] [address] [place] [address] Specialist Physiatry 12/08/21 Viviana Adames PA-C [address] [place] [address] [address] [place] [id number] Specialist Medical Physician Tank Truck Milk Receiver 01/27/23 04/09/24 documented as of this encounter
--- OUTSIDE RECORDS SUMMARY | 2025-05-27 18:54 | XMS_ITS | Encounter Summary ---
Author Organization [facility] Address [address] [place] [address] Care Team Providers Care Street Openings Inspector Name Role Phone Rebecca Bosch MD Primary Care Provider Nely Strong MD Primary Care Provide Thad Osorio MD Unavailable [phone] Ivania Bearden DO Primary Care Provider Thad Horvath MD Unavailable [phone] Anurag Tam MD Unavailable Ruel Hunter DO Unavailable Unavailable [facility], Pcp Primary Care Provider Viviana Gray PA-C Primary Care Provider Luke junior [facility], Pcp Primary Care Provider Viviana Gray PA-C Unavailable Unavailable Viviana Adames PA-C Primary Care Provider Luke junior Encounter Details Date Type Department Care Team Description 08/05/2015 Tong Hooker Report Medical Records [address] [place] [id number] Campbell Bentley MD Social History Tobacco Use [...] any clubs o r organizations such as congregation groups, unions, [employer] or athletic groups, or school groups? No [...] place to sleep or slept in a long term (including now)? No 12/08/2021 Sex Assigned at Date Recorded Not on file documented as of this encounter Plan of Treatment Not on file documented as of this encounter Visit Diagnoses Not on filedocumented in this encounter Care Teams Street Openings Inspector Relationship Specialty Start Date End Date Rebecca Bosch MD PCP - General Internal Medicine 07/22/15 12/11/20 Nely Betancourt MD PCP - General Internal Medicine 12/12/20 11/18/21 Ivania Bearden, [address] [place] [address] PCP - General Internal Medicine 11/19/21 02/23/22 [facility] Pcp [address] [place] [address] PCP - General Internal Medicine 02/24/22 03/02/22 Viviana Adames PA-C [address] [place] [address] [place] [address] PCP - General Medical Physician Basket Hand Weaver 03/03/22 04/26/22 [facility], Pcp [address] [place] [address] PCP - General Internal Medicine 04/27/22 04/09/24 Viviana Adames PA-C [address] [place] [address] PCP - General Medical Physician Basket Hand Weaver 04/10/24 Thad Norton MD [address] [facility] [address] [place] [address] Specialist Cardiovascular Disease 01/23/21 2 Thad Norton MD [address] [facility] [address] [place] [address] Ticket Writer Cardiovascular Disease 12/08/21 Anurag Tam MD [address] [facility] [address] [place] [address] Specialist Nephrology 12/08/21 Ruel Hunter DO [address] [facility] [address] [place] [address] Specialist Physiatry 12/08/21 Viviana Adames PA-C [address] [place] [address] [address] [place] [address] Specialist Medical Physician Basket Hand Weaver 01/27/23 04/09/24 documented as of this encounter
== END 2025-05-27 14:17 | disposition home or self-care (01) ==
LOC: HO.HMCFM 13:38
PROVIDERS: PCP Physician Assistant Medical; Visit Provider Physician Assistant Medical
DX: L97.901 Non-pressure chronic ulcer of unspecified part of unspecified lower leg limited to breakdown of skin (principal); R60.0 Localized edema; I87.2 Venous insufficiency (chronic) (peripheral); N64.4 Mastodynia

== ENCOUNTER → 2025-05-27 13:37 | Outpatient (BNVA) | payer MEDICARE, OTHER, SELFPAY | PROVIDERS: PCP Physician Assistant Medical; Visit Provider Physician Assistant Medical | DX: L97.901 Non-pressure chronic ulcer of unspecified part of unspecified lower leg limited to breakdown of skin (principal); R60.0 Localized edema; I87.2 Venous insufficiency (chronic) (peripheral); N64.4 Mastodynia; Z85.528 Personal history of other malignant neoplasm of kidney; Z90.5 Acquired absence of kidney | CPT/HCPCS: 99212 ==

== ENCOUNTER 2025-06-17 09:08 | Outpatient (AMB) | payer MEDICARE, OTHER, SELFPAY ==
--- NOTE | 2025-06-17 09:14 | MHC.PC.OV ---
Vital Signs 06/17/25 09:19 Height 6 ft 2 in Weight 223 lb 6 oz BMI 28.7 BP 118/64 Blood Pressure Location Lt brachial Position Sitting Respiration 14 Pulse 72 Pulse Source Pulse Oximeter Temp 97.9 F Temp Source Temporal Artery Scan Pulse Oximetry (%) 96 Oxygen Delivery Method Room Air Intake Visit Reasons: med review Intake Note: Duong presents in the office today for a medication review. Allergies No Known Allergies Allergy (Verified 06/17/25 09:18) Medication List - Last Reconciled 06/18/25 by MADDISON Davenport amlodipine 5 mg PO DAILY digoxin PO furosemide 20 mg PO BID magnesium oxide 400 mg PO DAILY metoprolol tartrate 200 mg PO BID morphine ER 30 mg PO TID multivitamin 1 tab PO DAILY mupirocin 2% 1 appl topical BID oxycodone 15 mg PO TID PRN pravastatin 80 mg PO DAILY warfarin 5 mg (2 x 2.5 mg) PO ONCE 90 days Tobacco use date assessed: 06/17/25 Fall risk assessment: 1 Fall in past year Last assessed Fall Risk: 06/17/25 Dental Screening Dental Screen Date: 06/17/25 Did you have a dental visit in the last 12 months?: No Did you have a dental problem in the last 6 months where you did not have access to dental care?: No Was dental information given to patient?: Patient has dentist HPI HPI Comments History of Present Illness Details This is a 75-year-old male with a past medical history of atrial fibrillation, aortic stenosis, left renal carcinoma status post nephrectomy in remission, chronic kidney disease, chronic back pain and osteoarthritis, hyperlipidemia, anemia and lower extremity edema presenting for follow up. Bilateral cataracts-[place] [address] Norton is his supervisor opening and picking, and he is followed by the [facility] Coumadin clinic. Dr. Tam is his channel sales manager. He has a history of left renal carcinoma. Status post nephrectomy. No known recurrence. The patient is followed by Dr. Hunter who prescribes his pain medications. Patient was treated recently with a 10 day course of doxycycline for cellulitis of his bilateral lower extremities. When I saw him he was improving, but he had some shallow ulcerations. He was applying topical mupirocin since that visit, and this resolved so he is not going to schedule an appointment with the [facility] at this time. He denies fevers, chills, pain, increased swelling, purulent drainage. At our last appointment he also endorsed right retroareolar breast pain for the past couple of months when pressure is applied to the area. He notices it when he lays on his right side.. Denies family history of breast cancer. He does not feel any lumps. No fevers, chills, fatigue, night sweats or unexplained weight loss. Patient's breast exam here on 05/27/2025 was unremarkable aside from right retroareolar area tenderness. Patient reports ultrasound and mammogram are not booked until August. He will get his flu shot at the pharmacy. He continues to decline colonoscopy and Cologuard. ROS: Constitutional: No unexplained weight loss, fever, chills, fatigue or night sweats. Respiratory: No shortness of breath, cough or sputum production. Cardiovascular: No chest pain, chest pressure or chest discomfort. No palpitations. Stable lower extremity edema. Gastrointestinal: No anorexia, nausea, vomiting or diarrhea. No blood in stool. Genitourinary: No dysuria, hematuria, urinary frequency. Neurologic: No headache, dizziness, syncope Skin: No rash or redness. Physical exam: Constitutional: Alert, in no distress. Neck: Supple, Full range of motion. No lymphadenopathy. Respiratory: Clear to auscultation. Cardiovascular: S1 S2 regular. Systolic murmur. Genitourinary: No costovertebral angle tenderness. Extremities: Warm and well perfused. Bilateral venous stasis changes and lower extremity edema. No weeping, discharge or open sores. Psychiatric: Normal mood and affect [facility] Medical History (Updated 05/27/25 @ 16:50 by MADDISON Davenport) Breast pain, right Venous stasis dermatitis of both lower extremities Lower extremity ulceration Intrahepatic bile duct dilation Infrarenal abdominal aortic aneurysm (AAA) without rupture Pelvic pain in male Pure hypercholesterolemia Renal cell carcinoma of left kidney Stiffness of hand joint Sleep paralysis Mild aortic stenosis Lower extremity edema LVH (left ventricular hypertrophy) HTN (hypertension) High cholesterol Hearing decreased Chronic back pain CKD (chronic kidney disease) Afib Arthritis Anemia Surgical History (Updated 06/11/24 @ 16:41 by MADDISON Davenport) Status post laser cataract surgery of both eyes H/O discectomy History of repair of rotator cuff History of nephrectomy Family History Brother Crohn disease Cancer of colon Multiple sclerosis Scarlet fever Father TIA (transient ischemic attack) Other Brain tumor Heart disease Social History (Updated 06/17/25 @ 09:19 by Miriam Davidson CMA) Housing: House Alcohol intake: never Patient Tobacco Use Status: Former Tobacco user Cigarette Packs Per Day: 2 Years Smoked: 40 e-Cigarette/Vaping Use: Never Used Second Hand Smoke Exposure: No service: No Current occupational status: retired Current occupational exposures/hazards: No Cognitive needs: No Hearing needs: Yes (Hard of hearing) Vision needs: No Questionnaire Thrive Questionnaire Date Thrive assessed: 12/20/24 I am a: Patient What is your living situation today?: I choose not to answer this question Within the past 12 months, did the food you bought not last and you didn't have the money to get more?: I choose not to answer this question Within the past 12 months, did you worry whether your food would run out before you got money to buy more?: I choose not to answer this question Do you have trouble paying for medicines?: I choose not to answer this question Do you have trouble getting transportation to medical appointments?: I choose not to answer this question Do you have trouble paying your heating and electricity bill?: I choose not to answer this question Do you have trouble taking care of your child, family member or friend?: I choose not to answer this question Do you have trouble with day-to-day activities such as bathing, preparing meals, shopping, managing finances, etc.?: I choose not to answer this question Are you currently unemployed and looking for a job?: I choose not to answer this question Are you interested in more education?: I choose not to answer this question Please select the resources that you would like help with: None Currently or been in a relationship where the following occur: I choose not to answer THRIVE Score: 0 CHRIS-7 AMB Questionnaire CHRIS-7 Date CHRIS - 7 assessed: 12/20/24 Source: Developed by Drs. Matheus Asencio, Tanya Goodman, Duong Naranjo and colleagues, with an educational iesha from [employer]. Physical exam (Primary Care) Vital Signs: Last Vital Signs Temp 97.9 F 06/17/25 09:19 Pulse 72 06/17/25 09:19 Resp 14 06/17/25 09:19 BP 118/64 06/17/25 09:19 Pulse Ox 96 06/17/25 09:19 Oxygen Delivery Method Room Air 06/17/25 09:19 BMI result Body Mass Index 28.7 Tobacco/Smoking Status: Tobacco use Status Tobacco use date assessed 06/17/25 06/17/25 09:22 Patient Tobacco Use Status Former Tobacco user 06/17/25 09:19 e-Cigarette/Vaping Use Never Used 06/17/25 09:19 Thrive Assessment: Date of Thrive Assessment Date Thrive assessed 12/20/24 06/17/25 09:14 Currently or been in a relationship where the following occur: I choose not to answer Coding Level of Care Code Est Pt Level 4 (60026) Complex EM visit Add On G2211 Diagnoses Ulcer of lower extremity, limited to breakdown of skin, unspecified laterality L97.901 Laterality: unspecified laterality Non-pressure ulcer stage: limited to breakdown of skin Lower extremity edema R60.0 Venous stasis dermatitis of both lower extremities I87.2 Breast pain, right N64.4 Primary hypertension I10 Hypertension type: primary hypertension Renal cell carcinoma of left kidney C64.2 Pure hypercholesterolemia E78.00 Chronic kidney disease, unspecified CKD stage N18.9 Chronic kidney disease stage: unspecified stage Longstanding persistent atrial fibrillation I48.11 Atrial fibrillation type: longstanding persistent Chronic bilateral low back pain without sciatica M54.50; G89.29 Back pain laterality: bilateral Back pain location: low back pain Sciatica presence: without sciatica Mild aortic stenosis I35.0 Assessment & Plan Assessment & Plan (1) Lower extremity ulceration: Code(s): L97.909 - Non-pressure chronic ulcer of unspecified part of unspecified lower leg with unspecified severity Category: Medical Qualifiers: Laterality: unspecified laterality Non-pressure ulcer stage: limited to breakdown of skin Qualified Code(s): L97.901 - Non-pressure chronic ulcer of unspecified part of unspecified lower leg limited to breakdown of skin (2) Lower extremity edema: Code(s): R60.0 - Localized edema Category: Medical (3) Venous stasis dermatitis of both lower extremities: Code(s): I87.2 - Venous insufficiency (chronic) (peripheral) Category: Medical (4) Breast pain, right: Code(s): N64.4 - Mastodynia Category: Medical (5) HTN (hypertension): Code(s): I10 - Essential (primary) hypertension Category: Medical Qualifiers: Hypertension type: primary hypertension Qualified Code(s): I10 - Essential (primary) hypertension (6) Renal cell carcinoma of left kidney: Code(s): C64.2 - Malignant neoplasm of left kidney, except renal pelvis Category: Medical (7) Pure hypercholesterolemia: Code(s): E78.00 - Pure hypercholesterolemia, unspecified Category: Medical (8) CKD (chronic kidney disease): Code(s): N18.9 - Chronic kidney disease, unspecified Category: Medical Qualifiers: Chronic kidney disease stage: unspecified stage Qualified Code(s): N18.9 - Chronic kidney disease, unspecified (9) Afib: Code(s): I48.91 - Unspecified atrial fibrillation Category: Medical Qualifiers: Atrial fibrillation type: longstanding persistent Qualified Code(s): I48.11 - Longstanding persistent atrial fibrillation (10) Chronic back pain: Code(s): M54.9 - Dorsalgia, unspecified; G89.29 - Other chronic pain Category: Medical Qualifiers: Back pain laterality: bilateral Back pain location: low back pain Sciatica presence: without sciatica Qualified Code(s): M54.50 - Low back pain, unspecified; G89.29 - Other chronic pain (11) Mild aortic stenosis: Code(s): I35.0 - Nonrheumatic aortic (valve) stenosis Category: Medical Plan Lower extremity cellulitis resolved. There are no open sores today. He will monitor this closely. Keep the legs elevated. He does not tolerate compression stockings. We discussed this can be a chronic waxing and waning issue due to lower extremity edema and venous stasis. I am read ordering the ultrasound and mammogram with urgent priority since this was not booked until August. If they have no sooner availability he is okay with trying [place] for scheduling. His blood pressure is well-controlled. He is compliant with INR checks. He is followed by Cardiology. No known recurrence of renal carcinoma. He is followed by urology. Continue pravastatin for hyperlipidemia. Patient will have lab work completed. Follow up in 6 months.
[2025-06-17 09:19] VITALS: BP 118/64; PULSE 72; RESP 14; TEMP 36.6; O2SAT 96; BMI 28.7
--- OUTSIDE RECORDS SUMMARY | 2025-06-17 10:15 | XMS_ITS | Encounter Summary ---
Author Organization [facility] Address [address] [facility] [address] [place] [address] Phone Care Team Providers Care Blanket Cutter Hand Name Role Phone Rebecca Clarke MD Primary Care Provider [phone] Encounter Details Date Type Department Care Team (Late Contact Info) Description 01/08/2021 Orders Only [facility] [address] [facility] [address] [place] [address] ProviderSha MD Social History Tobacco [...] [facility] [address] [place] [phone] Anurag Tam MD [address] [facility] [address] [place] [address] documented as of this encounter Procedures Procedure Name Priority Date/Time Associated Diagnosis Comments EXT RESULT ENTRY Routine 01/08/2021 documented in this encounter Results * EXT RESULT ENTRY (01/08/2021) us Historical Provider LAB BLOOD ORDERABLES Edit ed Result - Final documented in this encounter Visit Diagnoses Not on filedocumented in this encounter Care Teams Blanket Cutter Hand Relationship Specialty Start Date End Date Rebecca Clarke MD [address] [place] [address] PCP - General Internal Medicine 06/13/24 documented as of this encounter
--- OUTSIDE RECORDS SUMMARY | 2025-06-17 10:15 | XMS_ITS | Encounter Summary ---
Author Organization [facility] Address [address] [facility] [address] [place] [address] Phone Care Team Providers Care Paint Mixer Machine Name Role Phone Rebecca Clarke MD Primary Care Provider [phone] Encounter Details Date Type Department Care Team (Late Contact Info) Description 02/19/2021 Orders Only [facility] [address] [facility] [address] [place] [address] ProviderSha MD Social History Tobacco [...] Visit [facility] [address] [place] [phone] Anurag Tam MD [address] [facility] [address] [place] [address] documented as of this encounter Procedures Procedure Name Priority Date/Time Associated Diagnosis Comments EXT RESULT ENTRY Routine 02/19/2021 documented in this encounter Results * EXT RESULT ENTRY (02/19/2021) us Historical Provider LAB BLOOD ORDERABLES Su l Result documented in this encounter Visit Diagnoses Not on filedocumented in this encounter Care Teams Paint Mixer Machine Relationship Specialty Start Date End Date Rebecca Clarke MD [address] [place] [address] PCP - General Internal Medicine 06/13/24 documented as of this encounter
--- OUTSIDE RECORDS SUMMARY | 2025-06-17 10:16 | XMS_ITS | Clinical Summary ---
Author Organization [facility] Address [address] [facility] [place] [address] Phone Care Team Providers Care Organ Grinder Name Role Phone Viviana Adames Primary Care Provider [phone] Allergies No known active allergies Medications digoxin [...] Problem Noted Date Diagnosed Date Atrial fibrillation ([facility] V24, CMS/[facility] V28) 0 05/15/2025 Assessment & Plan (05/15/2025 [...] Description 05/23/2025 8:30 AM EDT Ancillary Procedure [facility] [address] [place] [address] Atrial fibrillation, unspecified type (CMS/HCC V24, CMS/HCC V28); Shortness of breath 05/15/2025 9:10 AM EDT Office Visit [facility] [address] [facility] [address] [place] [address] Erendira Amos NP Atrial fibrillation, unspecified type (CMS/HCC V24, CMS/HCC V28) (Primary Dx); Bilateral leg edema; Shortness of breath; Cellulitis of lower extremity, unspecified laterality 05/15/2025 Telephone [facility] [address] [facility] [address] [place] [address] Erendira Amos NP from Last 3 Months Surgical History Surgery Date Site/Laterality Comments OTHER SURGICAL HISTORY PROCEDURE: MS UNLISTED PROCEDURE SPINE; COMMENT: L5-S1 DISC REPAIR ROTATOR CUFF REPAIR 1998 PROCEDURE: HISTORICAL ROTATOR CUFF REPAIR; COMMENT: RIGHT OTHER SURGICAL HISTORY 2002 PROCEDURE: MS CYSTO W/SIMPLE REMOVAL STONE & STENT; COMMENT: RrEMOVE KIDNEY STONE LEFT COLONOSCOPY 2003, 1991 neg PROCEDURE: HISTORICAL COLONOSCOPY; COMMENT: both normal except mild diverticulosis OTHER SURGICAL HISTORY 03/15 PROCEDURE: MS ESOPHAGOSCOPY FLEXIBLE TRANSORAL DIAGNOSTIC; COMMENT: gerd with [...] benign Maternal Grandfather [place] x [place] Maternal Grandmother [place] Mother Alive hepatitis, vincent racts Paternal Grandfather [place] x [place] Paternal Grandmother Brain t umor Sister Alive [...] Description 07/19/2025 8:30 AM EST Ancillary Procedure [facility] Cardiology [facility] [address] [facility] [address] [place] [address] 08/14/2025 9:00 AM EST Ancillary Procedure [facility] Cardiology [facility] [address] [facility] [address] [place] [address] 08/15/2025 8:10 AM EST Office Visit [facility] [address] [facility] [address] [place] [address] Erendira Amos NP [address] [place] [address] Dr [place] [address] Health Maintenance Due Date Last Done Comments [...] - 05/20/2025 10:06 PM EDT Performed at: [address] [id number] Supervisor Heat Treating: Selene Bustamante MD, Phone: [phone] E[address] Am[address] LIGHT REPAIRER LAB BLOOD ORDERABLES Final R esult Performing Organization Address [facility] Co de Phone Number [facility] 1 * Magnesium (05/20/2025 7:06 AM EDT) Pathologist [facility] Magnesium 2.2 1.6 - 2.3 mg/dL [facility] 1 Blood Venous blood specimen / Unknown 05/20/2025 7:06 AM EDT 05/20/2025 Narrative [facility] 1 - 05/21/2025 8:08 AM EDT Performed at: [address] [id number] Supervisor Heat Treating: Selene Bustamante MD, Phone: [phone] Erendira Amos [address] LIGHT REPAIRER LAB BLOOD ORDERABLES Final R esult Performing Organization Address [facility] de Phone Number [facility] 1 * [...] 4:06 AM EDT Performed at: - [facility] [address] [id number] Supervisor Heat Treating: Selene Bustamante MD, Phone: [phone] us Erendira Amos STRE[address] LIGHT REPAIRER LAB BLOOD ORDERABLES Final R esult [facility] [...] 4:06 AM EDT Performed at: 01 - [facility] [id number] Supervisor Heat Treating: Selene Bustamante MD, Phone: [phone] us Erendira Amos NP LAB BLOOD ORDERABLES Final R esult [facility] 1 * ECG 12 lead (05/15/2025 8:13 PM EDT) Ventricular Rate ECG 63 BPM GEMUSE Atrial Rate 55 BPM GEMUSE QRS Duration 94 ms GEMUSE Q-T Interval 426 ms GEMUSE QTc 435 ms GEMUSE R [place] 68 degrees GEMUSE T [place] 106 degrees GEMUSE ECG Interpretation Atrial fibrillation Moderate voltage criteria for LVH, may be normal variant ST and T wave abnormality, consider lateral ischemia Abnormal ECG No previous ECGs available Confirmed by Rose Marie PERKINS JAMES ([id number]) on 05/16/2025 12:39:34 PM GEMUSE 05/15/2025 9:18 AM EDT 05/16/2025 12:39 PM EDT us Erendira Amos STREET LIGHT REPAIRER ECG ORDERABLES Edited Resul t - Final GEMUSE from Last 3 Months Insurance MEDICARE [facility] Care Teams Organ Grinder Relationship Specialty Start Date End Date Viviana Adames PA [address] [place] [address] PCP - General 04/10/24
--- OUTSIDE RECORDS SUMMARY | 2025-06-17 10:16 | XMS_ITS | Clinical Summary ---
Author Organization [facility] Address [address] [place] [address] Phone Care Team Providers Care Arabic Teacher Name Role Phone Rebecca Clarke MD Primary Care Provider [phone] Allergies No known active allergies Medications MULTIPLE [...] Office Visit [facility] [address] [place] [phone] Anurag Tam MD [address] [address] Health Maintenance Due Date Last Done Comments Influenza Vaccine (#1) 2025 3, 06/16/2021, 06/28/2020, Additional history exists Pneumococcal Vaccine: 50+ Years Completed 03/08/2018, 01/13/2017 Pneumococcal Vaccine: Peds (0 to 5 Years) and At-Risk Patients (6 to 49 Years) Discontinued 03/08/2018, 01/13/2017 Hepatitis B Vaccine Aged Out No longe r eligible based on patient's age to complete this topic Insurance Medicare [place] Care Teams Arabic Teacher Relationship Specialty Start Date End Date Rebecca Clarke MD [address] [place] [address] PCP - General Internal Medicine 06/13/24
== END 2025-06-17 09:54 | disposition home or self-care (01) ==
LOC: HO.HMCFM 09:09
PROVIDERS: PCP Physician Assistant Medical; Visit Provider Physician Assistant Medical
DX: I12.9 Hypertensive chronic kidney disease with stage 1 through stage 4 chronic kidney disease, or unspecified chronic kidney disease (principal); L97.901 Non-pressure chronic ulcer of unspecified part of unspecified lower leg limited to breakdown of skin; C64.2 Malignant neoplasm of left kidney, except renal pelvis; I48.11 Longstanding persistent atrial fibrillation; R60.0 Localized edema; I87.2 Venous insufficiency (chronic) (peripheral); N64.4 Mastodynia; E78.00 Pure hypercholesterolemia, unspecified; N18.9 Chronic kidney disease, unspecified; M54.50 Low back pain, unspecified; G89.29 Other chronic pain; I35.0 Nonrheumatic aortic (valve) stenosis

== ENCOUNTER → 2025-06-17 09:08 | Outpatient (BNVA) | payer MEDICARE, OTHER, SELFPAY | PROVIDERS: PCP Physician Assistant Medical; Visit Provider Physician Assistant Medical | DX: L97.901 Non-pressure chronic ulcer of unspecified part of unspecified lower leg limited to breakdown of skin (principal); R60.0 Localized edema; I87.2 Venous insufficiency (chronic) (peripheral); N64.4 Mastodynia; E78.00 Pure hypercholesterolemia, unspecified; I12.9 Hypertensive chronic kidney disease with stage 1 through stage 4 chronic kidney disease, or unspecified chronic kidney disease; N18.9 Chronic kidney disease, unspecified; I48.11 Longstanding persistent atrial fibrillation; M54.50 Low back pain, unspecified; G89.29 Other chronic pain; I35.0 Nonrheumatic aortic (valve) stenosis; Z85.528 Personal history of other malignant neoplasm of kidney; Z79.899 Other long term (current) drug therapy; Z90.5 Acquired absence of kidney | CPT/HCPCS: 99212 ==

== ENCOUNTER 2025-08-27 10:25 | Outpatient (AMB) | payer MEDICARE, OTHER, SELFPAY ==
[2025-08-27 10:31] VITALS: BMI 28.6
--- NOTE | 2025-08-27 10:31 | A.PHYSOV_ITS ---
Vital Signs 08/27/25 10:31 Height 6 ft 2 in Weight 223 lb BMI 28.6 Intake Visit Reasons: 3M FUV Intake Note: Patent is a 75 year old male in office today for a 3 month medication management. Allergies No Known Allergies Allergy (Verified 08/27/25 10:31) HPI Comments Details: History of Present Illness The patient is a 75 year old male presenting for a follow-up visit for management of chronic low back pain. He has been suffering from chronic lower back pain for years and has a history of lumbar injections and a narcotic pain management contract. He reports a 40-60% reduction in his pain with his current medications, which has improved his quality of life and allowed him to remain active, including walking his dogs and taking care of his house. Since his last visit, his back pain wakes him up several times a night, which has worsened since he ran out of his pain patches. He has found topical frankincense oil to be almost as effective as the patches for pain relief. He also reports increased instability with walking but does not use any assistive devices. He denies any side effects from his medications, including sedation, and endorses regular bowel movements. He notes that his feet become swollen throughout the day but he does not elevate them as recommended. Pain Description - Onset and Timing: The patient reports chronic low back pain that has been present for years and wakes him several times a night. - Location: The pain is primarily located in his lower back. - Relieving Factors: Pain is relieved by 40-60% with medications, and he has also found relief with pain patches and topical frankincense. - Interference with Activities: The pain interferes with his sleep. Results [facility] Medical History (Updated 08/27/25 @ 12:44 by Ruel Hunter DO) long-term use of opioid Lumbar radiculitis Chronic pain syndrome Breast pain, right Venous stasis dermatitis of both lower extremities Lower extremity ulceration Intrahepatic bile duct dilation Infrarenal abdominal aortic aneurysm (AAA) without rupture Pelvic pain in male Pure hypercholesterolemia Renal cell carcinoma of left kidney Stiffness of hand joint Sleep paralysis Mild aortic stenosis Lower extremity edema LVH (left ventricular hypertrophy) HTN (hypertension) High cholesterol Hearing decreased Chronic back pain CKD (chronic kidney disease) Afib Arthritis Anemia Surgical History Status post laser cataract surgery of both eyes H/O discectomy History of repair of rotator cuff History of nephrectomy Family History Brother Crohn disease Cancer of colon Multiple sclerosis Scarlet fever Father TIA (transient ischemic attack) Other Brain tumor Heart disease Social History Housing: House Alcohol intake: never Patient Tobacco Use Status: Former Tobacco user Cigarette Packs Per Day: 2 Years Smoked: 40 e-Cigarette/Vaping Use: Never Used Second Hand Smoke Exposure: No service: No Current occupational status: retired Current occupational exposures/hazards: No Cognitive needs: No Hearing needs: Yes (Hard of hearing) Vision needs: No Review of Systems Narrative Review of Systems - Constitutional: Reports difficulty sleeping due to back pain. - Musculoskeletal: Reports chronic low back pain. - Neurological: Reports increased instability with walking. - Cardiovascular: Reports feet swelling throughout the day. - Gastrointestinal: Reports regular bowel movements. Physical Exam Exam Exam: Physical Exam - General: Patient presents without any assistive devices. - Extremities: Edema was present in both lower extremities, worse on the left. Gait was waddling without antalgia. Lumbar extension was restricted. Neurological examination was nonfocal. Patient demonstrated no upper motor neuron signs. Vital Signs: BMI result Body Mass Index 28.6 Assessment & Plan Assessment & Plan (1) Chronic back pain: Code(s): M54.9 - Dorsalgia, unspecified; G89.29 - Other chronic pain Category: Medical Qualifiers: Back pain location: low back pain Back pain laterality: bilateral Sciatica presence: without sciatica Qualified Code(s): M54.50 - Low back pain, unspecified; G89.29 - Other chronic pain (2) Chronic pain syndrome: Code(s): G89.4 - Chronic pain syndrome Category: Medical (3) Lumbar radiculitis: Code(s): M54.16 - Radiculopathy, lumbar region Category: Medical (4) bed bug exterminator use of opioid: Code(s): Z79.891 - long-term (current) use of opiate analgesic Category: Medical Plan Pain Management - Affect: The patient reports his medications provide a better quality of life with less suffering. - Analgesia: He reports his medications provide a 40-60% reduction in pain. - Adverse Effects: The patient denies any side effects from his medications, including sedation, and reports regular bowel movements. - Activities of Daily Living: He has been able to remain active, including walking his dogs and taking care of his house. - Aberrant Drug Related Behaviors: The patient has been on a narcotic contract and reports needing a refill next week, which is consistent with his schedule. Plan Patient was informed and verbally consented to the use of an ambient scribe for clinic note documentation during this visit. 1. Chronic Low Back Pain The patient continues to experience chronic low back pain, which is managed with narcotic medications providing 40-60% relief. He also uses topical frankincense, which he reports is effective. Refills for his current pain medications will be sent to the pharmacy. 2. Gait Instability The patient reports increased instability while walking but does not use any assistive devices. No specific plan was discussed; will continue to monitor. 3. Dependent Edema The patient reports pedal edema that worsens during the day. He was counseled to keep his feet elevated while sitting. Discussion Notes I discussed the ongoing management of the patient's chronic low back pain, and he confirmed his medications provide 40-60% relief and improve his quality of life. We discussed his successful use of topical frankincense oil for suppleme ntal pain management. I informed the patient that I will send refills for his pain medications today. He was instructed to make a follow-up appointment at the front desk officer before leaving. Patient Instructions - Continue to take your pain medications as prescribed. - I have sent refills for your medications to the pharmacy today for you to picking machine operator next week. - You may continue to use topical frankincense for pain relief. - Keep your feet elevated while you are sitting to help with the swelling. - Please make a follow-up appointment at the front desk officer before you leave. Medications: Changed From morphine ER 30 mg PO TID 28 days 84 tabs 0RF Chronic Pain G89.4 - Chronic pain syndrome To morphine ER Partial fill upon request 30 mg PO TID 84 tabs 0RF Chronic Pain 28 days G89.4 - Chronic pain syndrome From oxycodone 15 mg PO TID 28 days PRN 84 tabs 0RF Chronic pain G89.4 - Chronic pain syndrome To oxycodone Partial fill upon request 15 mg PO TID PRN 84 tabs 0RF Chronic pain 28 days G89.4 - Chronic pain syndrome Coding Level of Care Code Est Pt Level 3 (43398) Add On Problem Visit Only Diagnoses Chronic bilateral low back pain without sciatica M54.50; G89.29 Back pain location: low back pain Back pain laterality: bilateral Sciatica presence: without sciatica Chronic pain syndrome G89.4 Lumbar radiculitis M54.16 bed bug exterminator use of opioid Z79.891
--- OUTSIDE RECORDS SUMMARY | 2025-08-27 13:07 | XMS_ITS | Encounter Summary ---
Author Organization [facility] Address [address] [place] [address] Care Team Providers Care V Belt Mold Assembler And Curer Name Role Phone Viviana Adames Primary Care Provider [phone] Encounter Details Date Type Department Care Team (Late st Contact Info) Description 07/23/2025 Results Follow-Up [facility] Cardiology [facility] Medical [facility] [address] [place] [phone] Hoa Silverio NP [address] [place] [address] [address] [place] [phone] Social History Tobacco Use Types Packs/Day Years Used Date Smoking Tobacco: Former Cigarettes 2 Q uit: 09/12/2014 Smokeless Tobacco: Never Quit: [...] Care Team (Late st Contact Info) Description 09/11/2025 10:00 AM EST Ancillary Procedure [facility] - [address] [place] [address] documented as of this encounter Visit Diagnoses Not on filedocumented in this encounter Care Teams V Belt Mold Assembler And Curer Relationship Specialty Start Date End Date Viviana Adames PA [address] [place] [address] PCP - General 04/10/24 documented as of this encounter
--- OUTSIDE RECORDS SUMMARY | 2025-08-27 13:07 | XMS_ITS | Clinical Summary ---
Author Organization [employer] Address [address] [place] [address] Phone Care Team Providers Care Emergency Room Tech Name Role Phone Viviana Adames Primary Care Provider [phone] Allergies No known active allergies Medications metoprolol succinate (TOPROL-XL) 100 mg 24 hr [...] mouth 1 (one) time each day. Active metoprolol tartrate (LOPRESSOR) 100 mg tablet TAKE 2 TABLETS BY MOUTH TWICE A DAY 360 tablet 3 5 Active digoxin (LANOXIN) 125 mcg (0.125 mg) tabletIndications :Essential (primary) hypertension,Perm anent atrial fibrillation (CMS/HCC V24, CMS/HCC V28) TAKE 1/2 TABLET BY MOUTH DAILY 45 tablet 1 5 Active Active Problems Problem Noted Date Diagnosed Date Atrial fibrillation 05/15/2025 Assessment & Plan (05/15/2025 7:46 PM [...] Encounters Date Type Department Care Team Description 08/12/2025 Telephone [facility] Cardiology [facility] [address] [place] [address] Erendira Amos NP 07/23/2025 Results Follow-Up [address] [place] [address] Hoa Silverio NP 07/19/2025 8:30 AM EST Ancillary Procedure [facility] - [address] [place] [address] Bilateral leg edema from Last 3 Months Surgical History Surgery Date Site/Laterality Comments OTHER SURGICAL HISTORY PROCEDURE: [place] UNLISTED PROCEDURE SPINE; COMMENT: L5-S1 DISC REPAIR ROTATOR CUFF REPAIR 1998 PROCEDURE: HISTORICAL ROTATOR CUFF REPAIR; COMMENT: RIGHT OTHER SURGICAL HISTORY 2002 PROCEDURE: MN CYSTO W/SIMPLE REMOVAL STONE & STENT; COMMENT: RrEMOVE KIDNEY STONE LEFT COLONOSCOPY 1991 neg PROCEDURE: HISTORICAL COLONOSCOPY; COMMENT: both normal except mild diverticulosis OTHER SURGICAL HISTORY 03/15 PROCEDURE: [place] ESOPHAGOSCOPY FLEXIBLE TRANSORAL DIAGNOSTIC; COMMENT: gerd with [...] Description 09/11/2025 10:00 AM EST Ancillary Procedure [facility] - [address] [place] [address] Health Maintenance Due Date Last Done Comments Zoster Vaccines (2 of 2) 08/23/2020 06/28/2020 Colorectal Cancer Screening: Stool Based Tests (FOBT/FIT) 08/21/2022 Falls Risk Assessment 08/21/2022 Hepatitis C Screening 08/21/2022 Medicare Annual Wellness Visit 08/21/2022 Social Influencers of Health Screening 08/21/2022 Cholesterol Screening (Lipid Panel) 01/06/2023 01/06/2018 Depression Screening 09/12/2024 COVID-19 Vaccine ( season) 2025 02/21/2025, 06/05/2024, 06/15/2023, Additional history exists Hypertension/CHF/CAD Annual BMP Blood Test 05/20/2026 05/20/2025 DTaP,Tdap,and Td Vaccines (5 - Td or Tdap) 03/26/2035 03/26/2025, 02/22/2022, 09/27/2011, Additional history exists Pneumococcal Vaccine: 50+ Years Completed 03/08/2018, 01/13/2017 RSV Immunization Adult Patients Completed 10/06/2023 Influenza Vaccine Completed 07/04/2025, , 06/15/2023, Additional history exists HIB Vaccines [...] Procedure Name Priority Date/Time Associated Diagnosis Comments VAS US DUPLEX LOWER EXT VENOUS INSUFFICIENCY BILATERAL Routine 07/19/2025 9:08 AM EST Bilateral leg edema COMPREHENSIVE METABOLIC PANEL Routine 05/20/2025 7:06 AM EDT Atrial fibrillation, unspecified type (CMS/HCC V24, CMS/HCC V28) Bilateral leg edema Shortness of breath Cellulitis of lower extremity, unspecified laterality from Last 3 Months or Most Recently Relevant to Health Maintenance Results * Vascular US duplex lower extremity venous insufficiency bilateral (07/19/2025 9:08 AM EST) Left fem mid reflux 589 ms CV VAS LAB Left GSK jeanette 0.39 cm CV VAS LAB Left GSDC jeanette 0.32 cm CV VAS LAB Left GSMT jeanette 0.47 cm CV VAS LAB Left GSPC jeanette 0.35 cm CV VAS LAB Left GSPT jeanette 0.45 cm CV VAS LAB Left pop reflux 606 ms CV VAS LAB Left SFJ Diameter 0.82 cm CV VAS LAB Left SSMC jeanette 0.20 cm CV VAS LAB Left SSPC jeanette 0.20 cm CV VAS LAB Right GSK jeanette 0.19 cm CV VAS LAB Right GSDC jeanette 0.28 cm CV VAS LAB Right GSMT jeanette 0.34 cm CV VAS LAB Right GSPC jeanette 0.17 cm CV VAS LAB Right GSPT jeanette 0.37 cm CV VAS LAB Right pop reflux 800 ms CV VAS LAB Right SFJ Diameter 0.83 cm CV VAS LAB Right SSMC jeanette 0.19 cm CV VAS LAB Right SSPC jeanette 0.16 cm CV VAS LAB Right fem mid reflux 750 ms CV VAS LAB Left com fem reflux 544 ms CV VAS LAB Left GSDC reflux 856 ms CV VAS LAB Anatomical Region Laterality Modality Vascular, Abdomen Ultrasound Narrative 07/19/2025 2:08 PM EST Right No right deep vein thrombosis. Right popliteal vein and right femoral vein have minimal refluxes. Right superficial veins have no thrombosis. Right GSV has no significant reflux. Right SSV has no significant reflux. Left No left deep vein thrombosis. Left popliteal vein, left CFV and left femoral vein have minimal reflux. Left superficial veins have no thrombosis. Left GSV has mild reflux in the calf. Left SSV has no significant reflux. Right Lower Venous No evidence of deep vein thrombosis in the common femoral, deep femoral, proximal femoral, mid femoral, distal femoral, popliteal, greater saphenous, small saphenous, and posterior tibial veins of the right leg. The vessels showed compressibility. Interrogation showed phasic and spontaneous Doppler signals. Peroneal veins are not well visualized. Right Venous Insufficiency Duplex The exam was performed with the patient in reverse Trendelenburg. Left Lower Venous No evidence of deep vein thrombosis in the common femoral, deep femoral, proximal femoral, mid femoral, distal femoral, popliteal, greater saphenous, small saphenous, and posterior tibial veins of the left leg. The vessels showed compressibility. Interrogation showed phasic and spontaneous Doppler signals. Peroneal veins were not visualized. Left Venous Insufficiency Duplex The exam was performed with the patient in reverse trendelenburg. Refluxing left greater saphenous branch: 0.20cm diameter mid calf= 1070ms Inking Machine Tender Details A banks scale, color and doppler analysis ultrasound was performed. During the study longitudinal and transverse views were obtained. Pulsed wave doppler was performed. Erendira Amos NP CV VASCULAR PROCEDURES Final Result * (ABNORMAL) Comprehensive metabolic panel (05/20/2025 7:06 [...] 4:06 AM EDT Performed at: 01 - [facility] [address] [id number] Solar Installation Foreman: Selene Bustamante MD, Phone: [phone] us Erendira Amos NP LAB BLOOD ORDERABLES Final R esult [facility] 1 from Last 3 Months or Most Recently Relevant to Health Maintenance Insurance [employer]ICARE [employer] [place] Member Subscriber Plan / Payer ( fective 2021-Present) Name:DUONG CARLSILE Relation to Subscriber:Self Name:Duong Carlisle Payer ID:[id number] Group ID:Not on file Type:Not on file Address: [address] [place] [id number] Care Teams Emergency Room Tech Relationship Specialty Start Date End Date Viviana Adames PA [address] [place] [address] [place] [address] PCP - General 04/10/24
--- OUTSIDE RECORDS SUMMARY | 2025-08-27 13:07 | XMS_ITS | Encounter Summary ---
Author Organization [facility] Address [address] [place] [address] Care Team Providers Care Dragline Operator Name Role Phone Viviana Adames Primary Care Provider [phone] Encounter Details Date Type Department Care Team (Late st Contact Info) Description 08/12/2025 Telephone [facility] [address] [place] [address] Erendira Amos NP [address] [place] [address] [address] [place] [address] Social History Tobacco Use Types Packs/Day Years [...] as of this encounter Progress Notes * Marj Aggarwal - 08/12/2025 2:23 PM EST Patient postponed Echo appt to 09/11/25, due to inclement weather and would like to reschedule FU with German on 08/15/25. Please call patient to reschedule when available. documented in this encounter Plan of Treatment Upcoming Encounters Date Type Department Care Team (Late st Contact Info) Description 09/11/2025 10:00 AM EST Ancillary Procedure [facility] - [address] [place] [address] documented as of this encounter Visit Diagnoses Not on filedocumented in this encounter Care Teams Dragline Operator Relationship Specialty Start Date End Date Viviana Adames PA [address] [place] [address] PCP - General 04/10/24 documented as of this encounter
== END 2025-08-27 11:01 | disposition home or self-care (01) ==
LOC: HO.HPHYS 10:26
PROVIDERS: PCP Physician Assistant Medical; Visit Provider Physical Medicine & Rehabilitation
DX: M54.50 Low back pain, unspecified (principal); G89.29 Other chronic pain; G89.4 Chronic pain syndrome; M54.16 Radiculopathy, lumbar region; Z79.891 Long term (current) use of opiate analgesic
CPT/HCPCS: 99213; G2211

== ENCOUNTER → 2025-08-27 10:25 | Outpatient (BNVA) | payer MEDICARE, OTHER, SELFPAY | PROVIDERS: PCP Physician Assistant Medical; Visit Provider Physical Medicine & Rehabilitation | DX: G89.4 Chronic pain syndrome (principal); M54.50 Low back pain, unspecified; M54.16 Radiculopathy, lumbar region; Z79.891 Long term (current) use of opiate analgesic | CPT/HCPCS: 99212 ==